=== PATIENT | male | born 1975 | race Caucasian/White ===

== ENCOUNTER 2019-09-27 10:08 | Inpatient (IN) | payer BC, OTHER ==
[2019-09-27] VITALS (7 sets, daily range): BP systolic 144–159; BP diastolic 87–99
[~2019-09-27] VITALS: Ht 185.4 cm; Wt 119.5 kg
[2019-09-27 10:45] LABS: VENOUS BASE EXCESS -5.1 (-2.0-2.0); VENOUS HCO3 21.4 MEQ/L (23.0-27.0); VENOUS O2 SATURATION 58.3 % (60.0-80.0); VENOUS PARTIAL PRESSURE O2 30.4 mmHg (30.0-50.0); VENOUS PH 7.296 UNITS (7.330-7.430); VENOUS STANDARD HCO3 19.3 MEQ/L; VENOUS TOTAL CO2 22.8 MEQ/L (24.0-28.0)
[2019-09-27 10:51] LABS: BASO # 0.1 10^3/uL (0.0-0.2); BASO % 0.3 % (0.0-1.0); EOS % 0.2 % (0.0-3.0); HEMATOCRIT 47.3 % (42.0-52.0); HEMOGLOBIN 16.3 g/dl (13.5-17.5); LYMPH # 1.2 10^3/uL (1.5-5.0); LYMPH % 8.4 % (24.0-44.0); MEAN CORPUSCULAR HEMOGLOBIN 29.4 pg (27.0-33.0); MEAN CORPUSCULAR HGB CONC 34.5 g/dl (32.0-36.5); MEAN CORPUSCULAR VOLUME 85.4 fl (80.0-96.0); MONO # 0.9 10^3/uL (0.0-0.8); NEUTROPHILS # 12.3 10^3/uL (1.5-8.5); NEUTROPHILS % 84.6 % (36.0-66.0); PLATELET COUNT, AUTOMATED 268 10^3/uL (150-450); RED BLOOD COUNT 5.54 10^6/uL (4.30-6.10); WHITE BLOOD COUNT 14.6 10^3/uL (4.0-10.0)
[2019-09-27 11:01] LABS: INR 1.13; PROTHROMBIN TIME 14.2 SECONDS (11.8-14.0)
[2019-09-27 11:06] LABS: PARTIAL THROMBOPLASTIN TIME 30.7 SECONDS (25.0-38.4)
[2019-09-27] MEDS ORDERED: NS 1,000 ML IV ONE (11:15)
[2019-09-27] MEDS ORDERED: VANCOMYCIN HCL 1,000 MG, VIAL MATE ADAPTER 1 EACH in D5W 250 ML IV ONE ×6 (11:15)
[2019-09-27] MEDS ORDERED: PIPERACILLIN/TAZOBACTAM SOD 4.5 GM in D5W MINI-BAG PLUS 50 ML IV ONE (11:15)
[2019-09-27] MEDS ORDERED: VANCOMYCIN HCL 2,000 MG in D5W 500 ML IV ONE (11:15)
[2019-09-27 11:26] LABS: ERYTHROCYTE SEDIMENTATION RATE 44 mm/hr (0-15)
[2019-09-27 11:35] LABS: ALBUMIN 3.3 GM/DL (3.2-5.2); ALT/SGPT 20 U/L (12-78); BILIRUBIN,DIRECT 0.4 MG/DL (0.0-0.2); BLOOD UREA NITROGEN 14 MG/DL (7-18); CALCIUM LEVEL 9.3 MG/DL (8.5-10.1); CARBON DIOXIDE LEVEL 20 MEQ/L (21-32); CHLORIDE LEVEL 96 MEQ/L (98-107); CREATININE FOR GFR 1.23 MG/DL (0.70-1.30); GLOMERULAR FILTRATION RATE > 60.0 (>60); GLUCOSE, FASTING 351 MG/DL (70-100); LIPASE 48 U/L (73-393); POTASSIUM SERUM 4.7 MEQ/L (3.5-5.1); SODIUM LEVEL 128 MEQ/L (136-145); TOTAL PROTEIN 8.8 GM/DL (6.4-8.2)
[2019-09-27 12:04] LABS: HEMOGLOBIN A1c 10.8 %
[2019-09-27] MEDS ORDERED: ISOVUE-370 76% 100ML VIAL As Ordered ONE (12:24)
[2019-09-27] MEDS ORDERED: MORPHINE 2 MG/ML 1ML VIAL (J2270) IV ONE (12:30)
[2019-09-27] MEDS ORDERED: ONDANSETRON 4MG/2ML VIAL IV ONE (12:30)
[2019-09-27] MEDS ORDERED: RA M10TA PO (12:38)
--- NOTE | 2019-09-27 12:45 | REP ---
CHEST, SINGLE VIEW: No comparison. Single view of the chest is performed. There is no acute infiltrate. There appears to be a calcified granuloma in the left lower lung. The heart is normal in size. There is prominent soft tissue in the left hilar region, which may represent adenopathy. There are degenerative changes of the spine. IMPRESSION: No evidence of acute infiltrate. Possible left hilar adenopathy. Recommend CT of the chest. Electronically Signed by Red Gray MD 09/29/2019 11:11 P
[2019-09-27] MEDS ORDERED: GLUCOSE 4GM CHEW TABLET PO PRN (13:30)
[2019-09-27] MEDS ORDERED: GLUCAGON INJ 1MG VIAL SC PRN (13:30)
[2019-09-27] MEDS ORDERED: DEXTROSE 50% 50 ML SYRINGE IV PRN (13:30)
[2019-09-27] MEDS ORDERED: ACETAMINOPHEN TAB 650MG DOSE (2X325MG) PO PRN (13:30)
--- NOTE | 2019-09-27 13:43 | HPEPDOC ---
General Date of Admission 09/27/2019 Date of Service: Sep 27, 2019 Chief Complaint The patient is a 44-year-old male Who presents to the ER with complaints of weakness History of Present Illness Patient is a 44-year-old male who has not seen a physician in over 2 years with a past medical history of diabetes mellitus type 2 and foot ulcers, noncompliant with medications, who presented to the emergency room with weakness and decreased oral intake over the last 3 days. Patient reports that on Monday afternoon had come home and was in bed the entire time since that point. He reports feeling weak with decreased oral intake has not expense any fevers but did report chills while at home reported. His sugars were in the 300s. Has reported increased urinary frequency. Patient denies any chest pain, shortness of breath or palpitations. He did experience nausea and vomiting this morning. Denied any blood in his vomitus. Did report associated epigastric pain that reports has been ongoing for several months. Patient reports that the pain fluctuates between 7-9/10, reported as a burning without any alleviating or aggravating factors. Patient denies any constipation or diarrhea. Denies any urinary discomfort. Patient is unsure of any changes in his weight, but did report a decrease in his appetite over last 3 days. Home Medications Scheduled Melatonin (Melatonin) 10 Mg Tablet, 10 MG PO QHS, (Reported) Allergies Coded Allergies: No Known Allergies (Unverified , 09/27/19) Past Medical History Medical History Srj-zvudglq-zselemwiq diabetes mellitus type 2 Foot ulcers Surgical History No prior surgeries Family History - Patient reports that his mother had a history of arthritis Social History - Denies the use of tobacco; patient reports that he occasionally drinks alco hol. Last use was Monday with 6 beers; patient with that he smokes marijuana - Denies recent travel or sick contacts - Lives with girlfriend - Occupation; currently unemployed Review of Systems Other systems 10 point review of systems complete, all negative otherwise stated in HPI Vital Signs - Vitals: BP 157/72, HR 112, RR 18, Sat 100%RA, Temp 98.3F - General: Lying in bed, No acute distress, Speaking in full sentences, AAOx3 - HEENT: NC, AT, PERRLA - CVS: Tachycardic, +S1S2 - Lungs: Fair air entry bilaterally, No appreciable wheezing / rales / rhonchi - Abdomen: Soft, Non-distended, + Epigastric tenderness - Extremities: No lower extremity edema, No calf tenderness - Neuro: No focal motor or sensory deficit - Skin: ---- Left foot with erythema / warmth / drainage noted at L planter surface around 5th distal metatarsal area, area of drainage between 4/5th digit ---- Right foot with 1st digit with chronic ulcer without drainage / erythema / warmth noted Laboratory Data Labs 24H Laboratory Tests 2 09/27/19 10:32: Immature Granulocyte % (Auto) 0.5, Neutrophils (%) (Auto) 84.6H, Lymphocytes (%) (Auto) 8.4L, Monocytes (%) (Auto) 6.0H, Eosinophils (%) (Auto) 0.2, Basophils (%) (Auto) 0.3, Neutrophils # (Auto) 12.3H, Lymphocytes # (Auto) 1.2L, Monocytes # (Auto) 0.9H, Eosinophils # (Auto) 0.0, Basophils # (Auto) 0.1, Nucleated Red Blood Cells % (auto) 0.0, Erythrocyte Sedimentation Rate 44H, Prothrombin Time 14.2H, Prothromb Time International Ratio 1.13, Activated Partial Thromboplast Time 30.7, Blood Gas Bicarbonate Standard 19.3, Venous Blood pH 7.296L, Venous Blood Partial Pressure CO2 45.0, Venous Blood Partial Pressure O2 30.4, Venous Blood Total Carbon Dioxide 22.8L, Venous Blood HCO3 21.4L, Venous Blood Oxygen Saturation 58.3L, Venous Blood Base Excess -5.1L, Anion Gap 12, Glomerular Filtration Rate > 60.0, Estimated Mean Plasma Glucose 263H, Hemoglobin A1c 10.8, Lactic Acid Level 2.0, Calcium Level 9.3, Total Bilirubin 2.0H, Direct Bilirubin 0.4H, Aspartate Amino Transf (AST/SGOT) 21, Alanine Aminotransferase (ALT/SGPT) 20, Alkaline Phosphatase 124H, C-Reactive Protein, Quantitative 24.70H, Total Protein 8.8H, Albumin 3.3, Albumin/Globulin Ratio 0.6, Lipase 48L 09/27/19 10:40: Bedside Glucose (Misc Panel) 384H CBC/BMP Laboratory Tests 09/27/19 10:32 Microbiology Microbiology 09/27/19 Blood Culture, Received Pending 09/27/19 Blood Culture, Received Pending Plan / VTE VTE Prophylaxis Ordered?: Yes Plan Plan Uncontrolled diabetes mellitus type 2 - likely 2/2 non-compliance with medicai tons - Patient presented to the emergency room with complaints of weakness, decreased oral intake and chills - Patient has not been taking any of his medications. Over last 2 years after he has lost insurance coverage - Glucose levels at home noted to be 300s - A1c currently at 10.8 - Will check fasting lipid profile; start Atorvastatin for now - Will start low dose Levemir for better glycemic coverage; will start ISS while inpatient Diabetic foot ulcers - possibly with osteomyelitis - Currently patient has surrounding erythema, warmth and tenderness around area of drainage - Tachycardia; remains hemodynamically stable; no fevers - Leukocytosis noted / No lactic acidosis / Elevated CRP - XR R foot 09/26: abnormal soft tissue air density L foot cannot r\o osteo either foot - Will start IV fluid hydration - Will cover with broad spectrum antibiotics; Vancomycin and Zosyn - Case discussed with Dr. Simon; will evaluate today; will keep patient NPO for now for possible OR Epigastric pain - Patient reports that this pain has been going on for several months - Physical with epigastric tenderness - EKG noted without any ischemic changes - CXR 09/26: No evidence of acute infiltrate. Possible left hilar adenopathy. Recommend CT of the chest. - CT abdomen / pelvis 09/26: CT Findings Within normal limits - Will get CT chest with IV contrast - Will start Protonix Hypertension - Patient likely has ongoing history of hypertension - Has not seen a provider greater than 2 years - Will start Lisinopril for renal protective effect and BP control Gastrointestinal prophylaxis - Will start Protonix DVT prophylaxis - Will start TEDs/Sequentials MILDRED CHARLTON MD Sep 27, 2019 13:43
--- NOTE | 2019-09-27 13:46 | REP ---
REASON: Soft tissue infection left foot laterally and dorsally. AP and lateral views were obtained bilaterally. Two limited views of the right foot show some endplate irregularity involving the distal phalanx of the 1st digit. There is no acute fracture. There is a retrocalcaneal heel spur. IMPRESSION: Suspect findings distal phalanx 1st digit. Osteomyelitis or acute fracture cannot be ruled out on this two-view exam. Consider MRI. Two views of the left foot show air density in the webspace between the 4th and 5th digits and more proximally in the dorsal soft tissues as well. The mineralization of the mid and distal components of the 5th metacarpal appears decreased. There are plantar and retrocalcaneal heel spurs. Limited two views shows no acute fracture. IMPRESSION: Abnormal air density as described above consistent with the clinical history of infection with a gas producing organism. I cannot rule out acute osteomyelitis. MRI is recommended. There are other findings as described above. Electronically Signed by Yong Retana DO 09/27/2019 03:56 P
--- NOTE | 2019-09-27 13:49 | PHACANCOPD ---
PHARMACY VANCOMYCIN DOSING Pt Demographics Demographics Patient Age:44 , Weight:119.800 , Gender: male Adjusted Body Weight Date: 09/27/19, Adjusted Body Weight: [95.86] Kg Events Past 24 Hours Events Past 24 Hours: NO: Dialysis, Diuretic Therapy, Change in CrCl, Fever, Elevation in WBC, Pending Diagnostics, Pending Procedures, Other Vancomycin Vancomycin indication: MRSA COVERAGE Vancomycin Target Ranges: 15-20 mcg/ml Vancomycin Load Y/N: Yes Load Dose Date Time Vancomycin Load Dose: 2G Date:09/27/19 Time:12:00 Vancomycin Dose Date: 09/27/19. Current Vancomycin Dose: [1G IV Q8H] Intermittent Dosing?: No Labs Labs Item Value Date Time White Blood Count 14.6 10^3/uL H 09/27/19 1032 Neutrophils # (Auto) 12.3 10^3/uL H 09/27/19 1032 Creatinine 1.23 MG/DL 09/27/19 1032 C-Reactive Protein, Quantitative 24.70 MG/DL H 09/27/19 1032 Micro Microbiology 09/27/19 Blood Culture, Received Pending 09/27/19 Blood Culture, Received Pending Creatinine Clearance Date:09/27/19. Creatinine Clearance: [107ML/MIN ADJ]. Pending Labs VANCOMYCIN TROUGH 09/28/19 @11:00 Assessment and Plan Maintaining Current Dose?: Yes Reason for dose change: No Dose Change Pharmacist Note Pharmacist Note Date: 09/27/19. Pharmacist note:Pt is a 44 year old male being treated for MRSA coverage of a diabetic foot infection goal trough 15-20mcg/ml. The patient has not been treated with vancomycin here at [facility] in the past. To achieve goal a 2g l oading dose was started 09/27/19 @12:00. Maintenance therapy will consist of 1g IV every 8 hours. A trough is scheduled for 09/28/19 @ 11:00. We will continue to monitor and adjust the dose as needed. MARGARITO GARCIA PHARMACY Sep 27, 2019 13:49
[2019-09-27] MEDS ORDERED: ATORVASTATIN 20 MG TAB PO ONE (14:00)
[2019-09-27] MEDS ORDERED: PANTOPRAZOLE 40MG TAB (PROTONIX) PO ONE (14:00)
[2019-09-27] MEDS ORDERED: GI COCKTAIL 50ML BTL(HYOSCYAMINE/MAALOX/LIDOCAINE VISCOUS)(1:3:1) PO ONE (14:00)
[2019-09-27] MEDS ORDERED: lisinopriL 5 MG TAB PO ONE (14:00)
--- NOTE | 2019-09-27 14:17 | REP ---
REASON FOR EXAM: Abdominal pain . There are no priors for comparison. CONTRAST: 100 mL of Isovue 370. The lung bases are clear. The liver, gallbladder, spleen, pancreas, adrenals and kidneys are within normal limits. There is mild nonspecific perirenal stranding. The abdominal aorta and para-aortic regions are within normal limits. The bowel loops and their mesenteries are within normal limits. There is no intra-abdominal or intrapelvic mass or adenopathy. No free fluid or free air is seen in the abdomen or pelvis. Bone window technique throughout the examination showed the osseous structures to be within normal limits. IMPRESSION: CT findings are within normal limits. Electronically Signed by Yong Retana DO 09/27/2019 04:01 P
[2019-09-27 14:32] LABS: CHOLESTEROL LEVEL 217 MG/DL (<200); CHOLESTEROL RISK RATIO 5.564 (<5); HDL CHOLESTEROL 39 MG/DL (>40); LDL CHOLESTEROL 149 MG/DL (<100); NON-HDL-C 178 MG/DL; TRIGLYCERIDES LEVEL 143 MG/DL (<150)
[2019-09-27] MEDS: GABAPENTIN 100 MG CAP PO SCH ×2 (15:38→20:22)
[2019-09-27] MEDS: NS 1,000 ML IV SCH ×2 (15:38→23:30)
[2019-09-27] MEDS: oxyCODONE 5MG TAB PO PRN ×2 (15:38→21:49)
[2019-09-27] MEDS ORDERED: propofoL 500 MG/50 ML VIAL As Ordered ONE (16:04)
[2019-09-27] MEDS ORDERED: ONDANSETRON 4MG/2ML VIAL As Ordered ONE (16:04)
[2019-09-27] MEDS ORDERED: MIDAZOLAM INJ 2MG/2ML VIAL (J2250 PER 1MG) As Ordered ONE (16:04)
[2019-09-27] MEDS ORDERED: fentaNYL 100 MCG/2 ML INJECTION (J3010) As Ordered ONE (16:05)
[2019-09-27] MEDS ORDERED: dexameTHASONE 4 MG/ML 1ML VIAL (J1100 PER 1MG) As Ordered ONE (16:18)
[2019-09-27] MEDS ORDERED: LIDOCAINE 2% MDV 20ML VIAL As Ordered ONE (16:18)
[2019-09-27] MEDS ORDERED: BUPIVACAINE HCL 0.5% 30 ML VIAL As Ordered ONE (16:18)
[2019-09-27] MEDS ORDERED: NEOSPORIN GU IRRIG 20 ML VIAL As Ordered ONE (16:19)
[2019-09-27] MEDS ORDERED: BACITRACIN PWD 50,000 UNITS VIAL As Ordered ONE (16:19)
--- NOTE | 2019-09-27 16:23 | IPN ---
DATE: 09/27/2019 CHIEF COMPLAINT: A 44-year-old male seen for evaluation of a swollen left foot. The patient states he has had ulcers on-and-off for the last three years. He states that he usually is able to take of the ulcers himself. However, he has noticed swelling and redness of his left foot for three days. He states that he has had difficulty eating for the last three days as well. He presented to the emergency room and he is seen today for evaluation. HOME MEDICATIONS: Melatonin 10 mg by mouth at bedtime. ALLERGIES: None known. PAST MEDICAL HISTORY: Sig-umdxqrq-peqnrkzff diabetes mellitus, history of foot ulcers. PAST SURGICAL HISTORY: The patient denies any surgery. PHYSICAL EXAMINATION: Reveals an ulceration present on the plantar aspect of his left foot as well as an ulceration present on both his big toes. The ulceration on the left foot reveals a 5 mm x 5 mm ulceration submetatarsal four. This ulceration does display a sinus tract exiting on the dorsal aspect of the foot. The foot dorsally is tense with erythema over the central compartment measuring approximately 8 cm in a proximal direction, quite tender to palpation. There is a purulent discharge noted. The dorsalis pedis pulse is palpable, posterior tibial pulse bilateral is difficult to palpate. There is an ulceration present on the left hallux as well. This ulceration measures approximately 1.5 cm in length x 0.6 cm in width with approximately 1 mm depth. There is a larger ulceration on the right hallux measuring approximately 20 mm x 20 mm x 1 mm in depth. The hallux ulceration display no erythema or discharge. X-rays were reviewed of the foot bilateral revealing air in the subcutaneous tissues over the fourth metatarsal extending into the fourth toe. This does partially obstruct some of the visualization of the fourth metatarsal head. Osteomyelitis could not be ruled out of the fourth metatarsal head. There is some subtle changes noted in the proximal phalanx of the right hallux which excludes osteomyelitis but clinically there is no discharge or extension to bone on the right foot. LABORATORY STUDIES: Reviewed and reveal a white count of 14.6 and an ESR of 44. C-reactive protein of 24.7, GFR greater than 60, fasting glucose is 351. Hemoglobin A1c 10.8. ASSESSMENT: Central space infection dorsal and plantar, possible osteomyelitis fourth metatarsal left foot. PLAN: Discussed with the patient surgical decompression of plantar and central and dorsal space infection, left foot. Discussed possible debridement of osteomyelitic bone if present and packing the wound. Informed consent was obtained and signed by the patient. The patient's questions were answered. Thank you for this consultation.
[2019-09-27 16:27] LABS: INR 1.15; PROTHROMBIN TIME 14.4 SECONDS (11.8-14.0)
[2019-09-27] MEDS ORDERED: GENTAMICIN SULF 80MG/2ML VIAL As Ordered ONE ×2 (16:49→16:52)
[2019-09-27] MEDS ORDERED: LR 1,000 ML IV SCH (17:45)
[2019-09-27] MEDS ORDERED: fentaNYL 100 MCG/2 ML INJECTION (J3010) IV PRN (17:45)
[2019-09-27] MEDS ORDERED: ONDANSETRON 4MG/2ML VIAL IV PRN (17:45)
[2019-09-27] MEDS ORDERED: PERCOCET 5MG/325MG TAB PO PRN (17:45)
[2019-09-27] MEDS: PIPERACILLIN/TAZOBACTAM SOD 3.375 GM in D5W MINI-BAG PLUS 50 ML IV SCH ×3 (18:00→23:53)
[2019-09-27] MEDS: HumaLOG INSULIN (NovoLOG) PER UNIT SC SCH ×2 (19:05→20:22)
[2019-09-27] MEDS: VANCOMYCIN HCL 1,000 MG, VIAL MATE ADAPTER 1 EACH in D5W 250 ML IV SCH (20:16)
[2019-09-27] MEDS: LEVEMIR (INSULIN DETEMIR) 1 UNITS/0.01ML SC SCH (20:17)
--- NOTE | 2019-09-27 21:34 | ECGEPIP ---
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
--- NOTE | 2019-09-27 21:34 | ECGEPIP ---
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
[2019-09-28 03:30] VITALS: BP 138/82
[2019-09-28] MEDS: VANCOMYCIN HCL 1,000 MG, VIAL MATE ADAPTER 1 EACH in D5W 250 ML IV SCH ×3 (04:14→21:14)
[2019-09-28] MEDS: oxyCODONE 5MG TAB PO PRN ×4 (04:15→23:52)
[2019-09-28] MEDS: PIPERACILLIN/TAZOBACTAM SOD 3.375 GM in D5W MINI-BAG PLUS 50 ML IV SCH ×4 (05:59→23:53)
[2019-09-28 06:00] VITALS: BP 138/81
[2019-09-28 06:32] LABS: BASO % 0.4 % (0.0-1.0); EOS # 0.2 10^3/uL (0.0-0.5); EOS % 1.5 % (0.0-3.0); HEMATOCRIT 39.5 % (42.0-52.0); LYMPH % 9.8 % (24.0-44.0); MEAN CORPUSCULAR HEMOGLOBIN 29.4 pg (27.0-33.0); MEAN CORPUSCULAR HGB CONC 34.4 g/dl (32.0-36.5); MEAN CORPUSCULAR VOLUME 85.5 fl (80.0-96.0); MONO # 1.1 10^3/uL (0.0-0.8); MONO % 10.5 % (0.0-5.0); NEUTROPHILS # 8.1 10^3/uL (1.5-8.5); NEUTROPHILS % 77.3 % (36.0-66.0); PLATELET COUNT, AUTOMATED 216 10^3/uL (150-450); RED BLOOD COUNT 4.62 10^6/uL (4.30-6.10); WHITE BLOOD COUNT 10.5 10^3/uL (4.0-10.0)
[2019-09-28 06:54] LABS: HEMOGLOBIN 13.6 g/dl (13.5-17.5)
[2019-09-28 07:03] LABS: BLOOD UREA NITROGEN 10 MG/DL (7-18); CALCIUM LEVEL 8.6 MG/DL (8.5-10.1); CARBON DIOXIDE LEVEL 24 MEQ/L (21-32); CHLORIDE LEVEL 101 MEQ/L (98-107); GLOMERULAR FILTRATION RATE > 60.0 (>60); GLUCOSE, FASTING 325 MG/DL (70-100); MAGNESIUM LEVEL 2.1 MG/DL (1.8-2.4); POTASSIUM SERUM 4.1 MEQ/L (3.5-5.1); SODIUM LEVEL 135 MEQ/L (136-145)
[2019-09-28] MEDS: GABAPENTIN 100 MG CAP PO SCH ×3 (08:17→21:14)
[2019-09-28] MEDS: HumaLOG INSULIN (NovoLOG) PER UNIT SC SCH ×4 (08:17→21:15)
[2019-09-28] MEDS: LEVEMIR (INSULIN DETEMIR) 1 UNITS/0.01ML SC SCH ×2 (08:17→21:14)
[2019-09-28] MEDS: PANTOPRAZOLE 40MG TAB (PROTONIX) PO SCH (08:18)
[2019-09-28] MEDS: ATORVASTATIN 20 MG TAB PO SCH (08:18)
[2019-09-28] MEDS: lisinopriL 5 MG TAB PO SCH (08:20)
[2019-09-28] MEDS: NS 1,000 ML IV SCH ×2 (10:03→23:52)
--- NOTE | 2019-09-28 11:55 | PHACANCOPD ---
PHARMACY VANCOMYCIN DOSING Pt Demographics Demographics Patient Age:44 , Weight:119.500 , Gender: male Adjusted Body Weight Date: 09/27/19, Adjusted Body Weight: [95.86] Kg Events Past 24 Hours Events Past 24 Hours: NO: Dialysis, Diuretic Therapy, Change in CrCl, Fever, Elevation in WBC, Pending Diagnostics, Pending Procedures, Other Vancomycin Vancomycin indication: MRSA COVERAGE Vancomycin Target Ranges: 15-20 mcg/ml Vancomycin Load Y/N: Yes Load Dose Date Time Vancomycin Load Dose: 2G Date:09/27/19 Time:12:00 Vancomycin Dose Date: 09/28/19. Current Vancomycin Dose: [1G IV Q6H] Date: 09/27/19. Current Vancomycin Dose: [1G IV Q8H] Intermittent Dosing?: No Labs Labs Item Value Date Time White Blood Count 14.6 10^3/uL H 09/27/19 1032 White Blood Count 10.5 10^3/uL H 09/28/19 0607 Creatinine 1.23 MG/DL 09/27/19 1032 Creatinine 0.80 MG/DL 09/28/19 0607 Vancomycin Level Trough 7.2 UG/ML L 09/28/19 1100 Micro Microbiology 09/27/19 Gram Stain - Final, Resulted 09/27/19 Abscess Culture, Resulted Pending 09/27/19 Anaerobic Culture, Received Pending 09/27/19 Blood Culture - Preliminary, Resulted No growth after 24 hours . All specim... 09/27/19 Blood Culture, Received Pending Creatinine Clearance Date:09/27/19. Creatinine Clearance: [107ML/MIN ADJ]. Pending Labs VANCOMYCIN TROUGH 09/29/19 @11:00 Assessment and Plan Maintaining Current Dose?: No Reason for dose change: Trough too low Pharmacist Note Pharmacist Note Date: 09/28/19. Pharmacist note:Scr has improved to 0.8mg/dl and the patients trough came back at 7.2mcg/ml prior to the 4th dose. We will change the dosing to 1g vancomycin IV every 6 hours. Another trough is scheduled for 09/29/19 @ 11:00. We will continue to monitor and adjust the dose as needed. Date: 09/27/19. Pharmacist note:Pt is a 44 year old male being treated for MRSA coverage of a diabetic foot infection goal trough 15-20mcg/ml. The patient has not been treated with vancomycin here at [facility] in the past. To achieve goal a 2g loading dose was started 09/27/19 @12:00. Maintenance therapy will consist of 1g IV every 8 hours. A trough is scheduled for 09/28/19 @ 11:00. We will continue to monitor and adjust the dose as needed. MARGARITO GARCIA PHARMACY Sep 28, 2019 11:55
[2019-09-28] MEDS ORDERED: VANCOMYCIN HCL 1,000 MG, VIAL MATE ADAPTER 1 EACH in D5W 250 ML IV SCH (12:00)
[2019-09-28] MEDS ORDERED: ISOVUE-370 76% 100ML VIAL As Ordered ONE (12:20)
[2019-09-28 14:00] VITALS: BP 134/79
--- NOTE | 2019-09-28 14:07 | IPNPDOC ---
Text Note Date of Service The patient was seen on 09/28/19. NOTE SUBJECTIVE Mr. Mg has a history of poorly controlled trg-ifqbjti-cwamecbhz diabetes mellitus. He has been admitted with a significant ulcer to his left foot. He is now postop day #1 from incision and drainage. He notes some swelling to his toes, little or no pain and chronic numbness. OBJECTIVE Please see vital signs below Physical exam: HENT: Neck is supple with no adenopathy or thyromegaly, oral mucosa is moist. CV: Regular rate and rhythm with a normal S1 and S2 and no murmur. RESP: Clear to auscultation, no rhonchi, rales, wheezes or cough. ABD: Soft, nontender, nondistended, notable central obesity. EXT: Right great toe is in a compression dressing with some visible staining to bandage, left foot is encased in compression dressing, toes are warm to touch with good capillary refill. NEURO: No focal neuromotor or sensory deficits. Laboratory data of interest: Serum sodium has improved from 128-135. Creatinine is decreased from 1.23, down to 0.8. C-reactive protein is 20.5. White blood cell count is reduced 14.6, down to 10.5. Serum glucose this morning is 325, note is made of A1c of 10.8. Initial culture results from the left foot wound site reveals gram-positive cocci in pairs and chains. ASSESSMENT/PLAN: 1. Left foot ulcer--actually felt to be an abscess. There is underlying concern for osteomyelitis. Patient has undergone incision and drainage. Culture results are pending and biopsies were obtained to assess for osteomyelitis. In the int erim patient remains on Vanco and Zosyn. Appreciate input and assistance from the podiatry service. 2. Vuv-dmfylqd-zghpgnkxo diabetes mellitus--poorly controlled with hyperglycemia. Has elevated A1c. Will continue to adjust inpatient glucose control regimen; will need compliance with home regimen to avoid further end- organ damage. 3. Prerenal azotemia--resolved with IV hydration. Serum sodium is also improved. VS,Fishbone, I+O VS, Fishbone, I+O Laboratory Tests 09/28/19 06:07 Vital Signs Date Time Temp Pulse Resp B/P (MAP) Pulse Ox O2 Delivery O2 Flow Rate FiO2 09/28/19 11:03 18 09/28/19 08:20 136/80 09/28/19 06:00 98.1 92 97 Room Air I&O- Last 24 Hours up to 6 AM 09/28/19 06:00 Intake Total 3730 ml Output Total 700 ml Balance 3030 ml OLIVER TORREZ MD Sep 28, 2019 14:07
[2019-09-28] MEDS: ONDANSETRON 4MG/2ML VIAL IV PRN (14:14)
[2019-09-28] MEDS: RAMELTEON 8 MG TAB (ROZEREM) PO PRN (21:14)
[2019-09-28 22:00] VITALS: BP 134/80
[2019-09-29] MEDS: VANCOMYCIN HCL 1,000 MG, VIAL MATE ADAPTER 1 EACH in D5W 250 ML IV SCH ×4 (02:42→21:21)
[2019-09-29] MEDS: PIPERACILLIN/TAZOBACTAM SOD 3.375 GM in D5W MINI-BAG PLUS 50 ML IV SCH ×2 (05:52→11:59)
[2019-09-29 06:00] VITALS: BP 132/78
[2019-09-29 06:31] LABS: BASO # 0.1 10^3/uL (0.0-0.2); BASO % 0.7 % (0.0-1.0); EOS # 0.3 10^3/uL (0.0-0.5); EOS % 3.6 % (0.0-3.0); HEMATOCRIT 37.3 % (42.0-52.0); HEMOGLOBIN 12.8 g/dl (13.5-17.5); LYMPH # 1.2 10^3/uL (1.5-5.0); LYMPH % 17.2 % (24.0-44.0); MEAN CORPUSCULAR HGB CONC 34.3 g/dl (32.0-36.5); MEAN CORPUSCULAR VOLUME 84.6 fl (80.0-96.0); MONO # 0.8 10^3/uL (0.0-0.8); NEUTROPHILS # 4.7 10^3/uL (1.5-8.5); NEUTROPHILS % 67.2 % (36.0-66.0); PLATELET COUNT, AUTOMATED 206 10^3/uL (150-450); RED BLOOD COUNT 4.41 10^6/uL (4.30-6.10); WHITE BLOOD COUNT 6.9 10^3/uL (4.0-10.0)
[2019-09-29 06:57] LABS: BLOOD UREA NITROGEN 9 MG/DL (7-18); CALCIUM LEVEL 8.3 MG/DL (8.5-10.1); CARBON DIOXIDE LEVEL 27 MEQ/L (21-32); CHLORIDE LEVEL 100 MEQ/L (98-107); CREATININE FOR GFR 0.78 MG/DL (0.70-1.30); GLOMERULAR FILTRATION RATE > 60.0 (>60); GLUCOSE, FASTING 347 MG/DL (70-100); MAGNESIUM LEVEL 1.9 MG/DL (1.8-2.4); POTASSIUM SERUM 3.7 MEQ/L (3.5-5.1); SODIUM LEVEL 132 MEQ/L (136-145)
[2019-09-29] MEDS: LEVEMIR (INSULIN DETEMIR) 1 UNITS/0.01ML SC SCH ×2 (08:14→21:21)
[2019-09-29] MEDS: HumaLOG INSULIN (NovoLOG) PER UNIT SC SCH ×4 (08:14→20:46)
[2019-09-29] MEDS: oxyCODONE 5MG TAB PO PRN ×3 (08:15→21:23)
[2019-09-29] MEDS: PANTOPRAZOLE 40MG TAB (PROTONIX) PO SCH (08:15)
[2019-09-29] MEDS: GABAPENTIN 100 MG CAP PO SCH ×3 (08:15→21:22)
[2019-09-29] MEDS: ATORVASTATIN 20 MG TAB PO SCH (08:16)
[2019-09-29] MEDS: lisinopriL 5 MG TAB PO SCH (08:17)
[2019-09-29] MEDS: NS 1,000 ML IV SCH ×2 (08:53→15:19)
--- NOTE | 2019-09-29 12:37 | REP ---
CT CHEST WITH CONTRAST: 09/28/2019. CLINICAL HISTORY: Lymphadenopathy suggested about left hilum on chest x-ray. COMPARISON: Lung windows from CT abdomen and AP portable chest, 09/27/2019. TECHNIQUE: Bolus of 75 mL Isovue 370, scanning through the chest with coronal and sagittal reconstructions provided. FINDINGS: The lung oliver are well inflated. There is a calcified granuloma in the left lower lobe posterior basal segment about 10 mm. No infiltrate, pleural effusion, pleural-based mass, or other calcified nodules. There is no hiatal hernia. The heart is not enlarged. No pericardial thickening or effusion. There is a very large conglomerate calcified gen mass at the left hilum 3.8 x 2.7 x 3.3 cm. This corresponds to the chest x-ray finding. There is a smaller calcified node posteriorly in the hilum on the left at about 12 mm. No prevascular space, AP window, precarinal, right paratracheal, subcarinal or right hilar calcified nodes. Aorta is without aneurysm. Central pulmonary arteries are unremarkable. The bone windows show sternum, manubrium, clavicular heads, visualized scapula, and ribs without any abnormality. There are marginal osteophytes in lower thoracic spine without compression deformity. The upper abdomen is unchanged from yesterday's abdominal CT. IMPRESSION: 1. Large conglomerate calcified left hilar node corresponding to the CT finding. This is a benign old granulomas finding along with a smaller 12 mm node in that hilum and a 10 mm granuloma in the left lower lobe. There are no other significant findings. Electronically Signed by Getachew Esteban MD 09/29/2019 06:55 P
[2019-09-29 14:00] VITALS: BP 123/79
[2019-09-29] MEDS: SILVER SULFADIAZINE 1% CR 50 GM JAR TOP SCH ×2 (17:34→21:22)
--- NOTE | 2019-09-29 18:43 | PHACANCOPD ---
PHARMACY VANCOMYCIN DOSING Pt Demographics Demographics Patient Age:44 , Weight:119.500 , Gender: male Adjusted Body Weight Date: 09/27/19, Adjusted Body Weight: [95.86] Kg Events Past 24 Hours Events Past 24 Hours: NO: Dialysis, Diuretic Therapy, Change in CrCl, Fever, Elevation in WBC, Pending Diagnostics, Pending Procedures, Other Vancomycin Vancomycin indication: MRSA COVERAGE Vancomycin Target Ranges: 15-20 mcg/ml Vancomycin Load Y/N: Yes Load Dose Date Time Vancomycin Load Dose: 2G Date:09/27/19 Time:12:00 Vancomycin Dose Date: 09/29/19. Current Vancomycin Dose: [1.5G IV Q6H] Date: 09/28/19. Current Vancomycin Dose: [1G IV Q6H] Date: 09/27/19. Current Vancomycin Dose: [1G IV Q8H] Intermittent Dosing?: No Labs Labs Item Value Date Time Red Blood Count 5.54 10^6/uL 09/27/19 1032 White Blood Count 14.6 10^3/uL H 09/27/19 1032 White Blood Count 10.5 10^3/uL H 09/28/19 0607 White Blood Count 6.9 10^3/uL 09/29/19 0621 Neutrophils # (Auto) 8.1 10^3/uL 09/28/19 0607 Neutrophils # (Auto) 4.7 10^3/uL 09/29/19 0621 Creatinine 0.80 MG/DL 09/28/19 0607 Creatinine 0.78 MG/DL 09/29/19 0621 Vancomycin Level Trough 7.2 UG/ML L 09/28/19 1100 Vancomycin Level Trough 10.3 UG/ML 09/29/19 1359 Micro Microbiology 09/27/19 Gram Stain - Final, Resulted 09/27/19 Abscess Culture - Preliminary, Resulted Strep Agalactiae Group B Staphylococcus Aureus 09/27/19 Anaerobic Culture, Received Pending 09/27/19 Blood Culture - Preliminary, Resulted No Growth after 48 hours. All Specime... 09/27/19 Blood Culture - Preliminary, Resulted No Growth after 48 hours. All Specime... Creatinine Clearance Date:09/27/19. Creatinine Clearance: [107ML/MIN ADJ]. Pending Labs VANCOMYCIN TROUGH 09/30/19 @14:00 Assessment and Plan Maintaining Current Dose?: No Reason for dose change: Trough too low Pharmacist Note Pharmacist Note Date: 09/29/19. Pharmacist note:pt trough came back today @13:59 @ 10.3mcg/ml. Dosing will increase to 1.5g vancomycin IV every 6 hours. A trough is scheduled for 09/30/19 @14:00. We will continue to monitor and adjust the dose as needed. Date: 09/28/19. Pharmacist note:Scr has improved to 0.8mg/dl and the patients trough came back at 7.2mcg/ml prior to the 4th dose. We will change the dosing to 1g vancomycin IV every 6 hours. Another trough is scheduled for 09/29/19 @ 11:00. We will continue to monitor and adjust the dose as needed. Date: 09/27/19. Pharmacist note:Pt is a 44 year old male being treated for MRSA coverage of a diabetic foot infection goal trough 15-20mcg/ml. The patient has not been treated with vancomycin here at [facility] in the past. To achieve goal a 2g loading dose was started 09/27/19 @12:00. Maintenance therapy will consist of 1g IV every 8 hours. A trough is scheduled for 09/28/19 @ 11:00. We will continue to monitor and adjust the dose as needed. MARGARITO GARCIA PHARMACY Sep 29, 2019 18:42
--- NOTE | 2019-09-29 18:45 | IPNPDOC ---
Text Note Date of Service The patient was seen on 09/29/19. NOTE SUBJECTIVE Mr. Mg is postop day #2 from incision and drainage to the dorsum of his left foot for diabetic ulcer/abscess. He is complaining of some increased pain to his left lower extremity. He has also had some persistent hyperglycemia. OBJECTIVE Please see vital signs below; patient has been afebrile overnight. Physical exam: GENERAL: Patient is awake, alert and conversant; asking multiple questions regarding parking stickers, disability and appropriate diabetes diet HENT: Neck is supple with no adenopathy or thyromegaly, oral mucosa is moist. CV: Regular rate and rhythm with a normal S1 and S2 and no murmur. RESP: Clear to auscultation, no rhonchi, rales, wheezes or cough. ABD: Soft, nontender, nondistended, notable central obesity. EXT: Right great toe is in a compression dressing with some visible staining to bandage, left foot is encased in compression dressing, toes are warm to touch with good capillary refill, there is mild calf tenderness but no swelling or edema or discoloration NEURO: No focal neuromotor or sensory deficits. Laboratory data of interest: CBC has decreased from 10.5-6.9. Creatinine is stable at 0.78. Serum glucose remains elevated at 347. C-reactive protein has decreased from 20.5-14.8. Wound culture data is as discussed below. ASSESSMENT/PLAN: 1. Left foot ulcer--actually felt to be an abscess. There is underlying concern for osteomyelitis. Patient has undergone incision and drainage. Wound culture is positive for group B strep agalactiae and staph aureus--staph sensitivities are not yet completed. Blood cultures are negative to date. Bone biopsies were obtained to assess for osteomyelitis. In the interim patient remains on Vanco and Zosyn. Appreciate input and assistance from the podiatry service. Length of stay cannot yet be estimated. 2. Cdc-vfvojez-uunzbeijy diabetes mellitus--poorly controlled with hype rglycemia. Has elevated A1c of 10.8. Have readjusted his detemir dosing based on weight. Will get dietary consult for diabetes diet education for the patient. Will need compliance with home regimen to avoid further end-organ damage. 3. Prerenal azotemia--resolved with IV hydration. 4. DVT prophylaxis--subcutaneous heparin VS,Fishbone, I+O VS, Fishbone, I+O Laboratory Tests 09/29/19 06:21 Vital Signs Date Time Temp Pulse Resp B/P (MAP) Pulse Ox O2 Delivery O2 Flow Rate FiO2 09/29/19 15:14 18 09/29/19 14:00 98.7 95 123/79 (94) 99 Room Air I&O- Last 24 Hours up to 6 AM 09/29/19 06:00 Intake Total 2770 ml Output Total 600 ml Balance 2170 ml OLIVER TORREZ MD Sep 29, 2019 17:01
[2019-09-29] MEDS ORDERED: VANCOMYCIN HCL 500 MG in D5W MINI-BAG PLUS 100 ML IV ONE (19:00)
--- NOTE | 2019-09-29 20:30 | REPVR ---
PROCEDURE INFORMATION: Exam: US Duplex Left Lower Extremity Veins, Limited Exam date and time: 09/29/2019 8:00 PM Age: 44 years old Clinical indication: Pain; Leg, lower; Left; Prior surgery; Surgery date: Post-operative (0-2 days); Surgery type: Foot surgery for ulcer/infection; Additional info: Calf pain S/P foot surgery TECHNIQUE: Imaging protocol: Real-time Duplex ultrasound of the Left Lower Extremity with 2-D nolan scale, color Doppler flow and spectral waveform analysis with image documentation. Limited exam focused on the left lower extremity veins. COMPARISON: No relevant prior studies available. FINDINGS: Left deep veins: Unremarkable. The common femoral, femoral and popliteal veins are patent without thrombus. Normal compressibility, augmentation response and Doppler waveforms. Left superficial veins: Unremarkable. Saphenofemoral junction is patent without thrombus. Soft tissues: Unremarkable. Lymph nodes: 3.5 x 3.5 x 1.8 cm left inguinal lymph node. IMPRESSION: 1. No sonographic evidence of deep venous thrombosis. 2. Enlarged left inguinal lymph node, nonspecific in appearance, possibly reactive. Electronically signed by: Chet Castro On 09/29/2019 20:30:01 PM
[2019-09-29] MEDS: SENOKOT S TAB PO SCH (21:00)
[2019-09-29] MEDS: HEPARIN SOD (PORCINE) 5000UNITS/ML 1ML VIAL/SYRINGE SQ SCH (21:20)
[2019-09-29 22:00] VITALS: BP 127/79
[2019-09-29] MEDS: VANCOMYCIN HCL 500 MG in D5W MINI-BAG PLUS 100 ML IV SCH (22:52)
[2019-09-29] MEDS: RAMELTEON 8 MG TAB (ROZEREM) PO PRN (22:52)
[2019-09-30] MEDS: VANCOMYCIN HCL 1,000 MG, VIAL MATE ADAPTER 1 EACH in D5W 250 ML IV SCH ×2 (03:05→07:55)
[2019-09-30] MEDS: oxyCODONE 5MG TAB PO PRN ×3 (03:34→20:33)
[2019-09-30] MEDS: VANCOMYCIN HCL 500 MG in D5W MINI-BAG PLUS 100 ML IV SCH ×2 (04:31→10:13)
[2019-09-30 06:00] VITALS: BP 125/79
[2019-09-30 06:34] LABS: BASO # 0.1 10^3/uL (0.0-0.2); BASO % 0.9 % (0.0-1.0); EOS # 0.2 10^3/uL (0.0-0.5); EOS % 3.9 % (0.0-3.0); HEMATOCRIT 36.9 % (42.0-52.0); HEMOGLOBIN 12.6 g/dl (13.5-17.5); LYMPH # 1.5 10^3/uL (1.5-5.0); LYMPH % 26.8 % (24.0-44.0); MEAN CORPUSCULAR HEMOGLOBIN 28.9 pg (27.0-33.0); MEAN CORPUSCULAR HGB CONC 34.1 g/dl (32.0-36.5); MEAN CORPUSCULAR VOLUME 84.6 fl (80.0-96.0); MONO # 0.6 10^3/uL (0.0-0.8); MONO % 11.2 % (0.0-5.0); NEUTROPHILS # 3.2 10^3/uL (1.5-8.5); NEUTROPHILS % 56.7 % (36.0-66.0); PLATELET COUNT, AUTOMATED 215 10^3/uL (150-450); RED BLOOD COUNT 4.36 10^6/uL (4.30-6.10); WHITE BLOOD COUNT 5.7 10^3/uL (4.0-10.0)
[2019-09-30 07:06] LABS: BLOOD UREA NITROGEN 8 MG/DL (7-18); C REACTIVE PROTEIN QUANTITATIV 9.92 MG/DL (0.00-0.30); CALCIUM LEVEL 8.3 MG/DL (8.5-10.1); CARBON DIOXIDE LEVEL 29 MEQ/L (21-32); CHLORIDE LEVEL 99 MEQ/L (98-107); CREATININE FOR GFR 0.75 MG/DL (0.70-1.30); GLOMERULAR FILTRATION RATE > 60.0 (>60); GLUCOSE, FASTING 346 MG/DL (70-100); POTASSIUM SERUM 3.7 MEQ/L (3.5-5.1); SODIUM LEVEL 134 MEQ/L (136-145)
[2019-09-30] MEDS: HumaLOG INSULIN (NovoLOG) PER UNIT SC SCH ×4 (07:54→21:00)
[2019-09-30] MEDS: LEVEMIR (INSULIN DETEMIR) 1 UNITS/0.01ML SC SCH ×2 (07:55→22:22)
[2019-09-30] MEDS: ATORVASTATIN 20 MG TAB PO SCH (07:55)
[2019-09-30] MEDS: GABAPENTIN 100 MG CAP PO SCH ×3 (07:56→20:31)
[2019-09-30] MEDS: PANTOPRAZOLE 40MG TAB (PROTONIX) PO SCH (07:56)
[2019-09-30] MEDS: lisinopriL 5 MG TAB PO SCH (07:59)
[2019-09-30] MEDS: HEPARIN SOD (PORCINE) 5000UNITS/ML 1ML VIAL/SYRINGE SQ SCH ×2 (07:59→20:30)
--- NOTE | 2019-09-30 08:16 | IPN ---
DATE: 09/29/2019 at 4:15 p.m. CHIEF COMPLAINT: Patient seen at the bedside for evaluation of left foot surgery. The patient states that he has recently started to have calf tenderness and pain that extends from his foot to his leg. He denies shortness of breath, or chest pain. Physical examination reveals tenderness to compression of the calf. There is no palpable cords. Swelling is noted at the foot and lower leg. No tenderness on the right extremity. Laboratory studies reviewed: White blood cell count on admission was 14.6. It is reduced today to 6.9. ESR was 44 on admission. C-reactive protein on admission was 24.7; today is 14.8. Preliminary culture. The anaerobic culture is pending, however aerobic culture reveals Streptococcus group B and Staphylococcus aureus. Patent is presently on Vancomycin and Zosyn. The bandage was removed and the left lower and the packing was removed. Surrounding erythema still continues dorsally on the foot. However, with compression of the wound, there is no purulence. Good granulation tissue is noted dorsally and plantarly in the wound bed. ASSESSMENT: Central space infection, left foot. Possible deep venous thrombosis (DVT) left extremity. PLAN: Venous duplex scan was ordered of the left extremity. Since the patient's culture is Gram positive organisms, hold Zosyn and continue on vancomycin. Wound orders changed to clean wound with Vashe. Apply Drawtex to the wound with a dry sterile dressing every 8 hours. Patient can have Silvadene and dressing applied to the ulcers on his big toe bilaterally. These are not infected. Patient's duplex scan, if positive, will have hospitalist order his anticoagulant therapy. Patients questions were answered.
[2019-09-30] MEDS: MIRALAX *UNIT DOSE* 17GM PACKET PO SCH (09:00)
[2019-09-30] MEDS: SILVER SULFADIAZINE 1% CR 50 GM JAR TOP SCH ×3 (09:00→20:31)
[2019-09-30] MEDS: NS 1,000 ML IV SCH ×2 (10:47→12:05)
[2019-09-30] MEDS: ceFAZolin SOD 2 GM in IV 1 EA IV SCH ×2 (12:59→20:31)
[2019-09-30 14:00] VITALS: BP 140/84
[2019-09-30] MEDS ORDERED: oxyCODONE 5MG TAB PO ONE (15:30)
--- NOTE | 2019-09-30 18:05 | IPNPDOC ---
Text Note Date of Service The patient was seen on 09/30/19. NOTE SUBJECTIVE Mr. Mg is postop day #3 from incision and drainage to the dorsum of his left foot for diabetic ulcer/abscess. He is seen just after podiatry visit with dressing change. OBJECTIVE Please see vital signs below; patient has been afebrile overnight. Physical exam: GENERAL: Patient is awake, alert and conversant, comfortable HENT: Neck is supple with no adenopathy or thyromegaly, oral mucosa is moist. CV: Regular rate and rhythm with a normal S1 and S2 and no murmur. RESP: Clear to auscultation, no rhonchi, rales, wheezes or cough. ABD: Soft, nontender, nondistended, notable central obesity. EXT: Right great toe is in a compression dressing with some visible staining to bandage, left foot is encased in decreased compression dressing, toes are warm to touch with good capillary refill, there is mild calf tenderness but no swelling or edema or discoloration NEURO: No focal neuromotor or sensory deficits. Laboratory data of interest: White blood cell count is relatively stable at 5.7. Metabolic panel is within normal limits. C-reactive protein has now come down to 9.92. Lower extremity Doppler negative for DVT. Wound culture data is as discussed below. ASSESSMENT/PLAN: 1. Left foot ulcer--actually felt to be an abscess. There is underlying concern for osteomyelitis. Patient has undergone incision and drainage. Wound culture is positive for group B strep agalactiae and staph aureus--this is MSSA. Blood cultures are negative to date. Bone biopsies were obtained to assess for osteomyelitis. Patient remains on Zosyn and now Ancef. Appreciate input and assistance from the podiatry service. Ongoing wound care will be a challenge in this patient. 2. Rvc-spshpvq-syybxqhid diabetes mellitus--poorly controlled with hyperg lycemia. Has elevated A1c of 10.8. Continue to readjust his detemir dosing based on weight and response; Accu-Cheks ranging 303 down to 152. Will get dietary consult for diabetes diet education for the patient. Will need compliance with home regimen to avoid further end-organ damage. 3. Prerenal azotemia--resolved with IV hydration. 4. DVT prophylaxis--subcutaneous heparin VS,Fishbone, I+O VS, Fishbone, I+O Laboratory Tests 7/13/20 06:08 Vital Signs Date Time Temp Pulse Resp B/P (MAP) Pulse Ox O2 Delivery O2 Flow Rate FiO2 09/30/19 15:59 16 09/30/19 14:00 97.1 91 140/84 (102) 97 Room Air I&O- Last 24 Hours up to 6 AM 09/30/19 06:00 Intake Total 5220 ml Balance 5220 ml OLIVER TORREZ MD Sep 30, 2019 18:05
[2019-09-30] MEDS: SENOKOT S TAB PO SCH (20:33)
[2019-09-30 22:00] VITALS: BP 156/88
[2019-09-30] MEDS: RAMELTEON 8 MG TAB (ROZEREM) PO PRN (22:21)
[2019-10-01] MEDS: ceFAZolin SOD 2 GM in IV 1 EA IV SCH (04:00)
[2019-10-01] MEDS: oxyCODONE 5MG TAB PO PRN ×2 (04:02→10:10)
[2019-10-01] MEDS: ONDANSETRON 4MG/2ML VIAL IV PRN (05:06)
[2019-10-01 06:00] VITALS: BP 146/86
[2019-10-01 06:43] LABS: BASO % 0.8 % (0.0-1.0); EOS # 0.2 10^3/uL (0.0-0.5); EOS % 3.6 % (0.0-3.0); HEMATOCRIT 38.3 % (42.0-52.0); HEMOGLOBIN 13.2 g/dl (13.5-17.5); LYMPH # 1.1 10^3/uL (1.5-5.0); LYMPH % 19.9 % (24.0-44.0); MEAN CORPUSCULAR HEMOGLOBIN 29.3 pg (27.0-33.0); MEAN CORPUSCULAR HGB CONC 34.5 g/dl (32.0-36.5); MEAN CORPUSCULAR VOLUME 84.9 fl (80.0-96.0); MONO # 0.7 10^3/uL (0.0-0.8); MONO % 12.2 % (0.0-5.0); NEUTROPHILS # 3.4 10^3/uL (1.5-8.5); NEUTROPHILS % 62.9 % (36.0-66.0); PLATELET COUNT, AUTOMATED 230 10^3/uL (150-450); RED BLOOD COUNT 4.51 10^6/uL (4.30-6.10); WHITE BLOOD COUNT 5.3 10^3/uL (4.0-10.0)
[2019-10-01 07:10] LABS: BLOOD UREA NITROGEN 8 MG/DL (7-18); CALCIUM LEVEL 8.6 MG/DL (8.5-10.1); CARBON DIOXIDE LEVEL 31 MEQ/L (21-32); CHLORIDE LEVEL 99 MEQ/L (98-107); CREATININE FOR GFR 0.84 MG/DL (0.70-1.30); GLOMERULAR FILTRATION RATE > 60.0 (>60); GLUCOSE, FASTING 318 MG/DL (70-100); MAGNESIUM LEVEL 1.9 MG/DL (1.8-2.4); POTASSIUM SERUM 3.9 MEQ/L (3.5-5.1); SODIUM LEVEL 136 MEQ/L (136-145)
[2019-10-01] MEDS: HumaLOG INSULIN (NovoLOG) PER UNIT SC SCH ×4 (08:33→21:00)
[2019-10-01] MEDS: GABAPENTIN 100 MG CAP PO SCH ×3 (08:34→21:26)
[2019-10-01] MEDS: HEPARIN SOD (PORCINE) 5000UNITS/ML 1ML VIAL/SYRINGE SQ SCH ×2 (08:34→21:26)
[2019-10-01] MEDS: PANTOPRAZOLE 40MG TAB (PROTONIX) PO SCH (08:36)
[2019-10-01] MEDS: lisinopriL 5 MG TAB PO SCH (08:36)
[2019-10-01] MEDS: MIRALAX *UNIT DOSE* 17GM PACKET PO SCH (08:36)
[2019-10-01] MEDS: SILVER SULFADIAZINE 1% CR 50 GM JAR TOP SCH ×3 (08:37→21:28)
[2019-10-01] MEDS: ATORVASTATIN 20 MG TAB PO SCH (08:37)
[2019-10-01] MEDS ORDERED: VANCOMYCIN HCL 500 MG in D5W MINI-BAG PLUS 100 ML IV SCH (08:45)
[2019-10-01] MEDS ORDERED: LEVEMIR (INSULIN DETEMIR) 1 UNITS/0.01ML SC SCH ×2 (09:00→21:00)
--- NOTE | 2019-10-01 09:17 | ECHO ---
DATE OF PROCEDURE: 09/30/2019 REFERRING PHYSICIAN: Dr. Veronica Burroughs INDICATION: Sepsis. HEIGHT: 185 cm WEIGHT: 120 kg DIMENSIONS: IVS: 11.3 LV: 4.5 LVPW: 1.2 LA: 4.0 Aorta: 3.7 IVC: 2.3 Mitral E wave velocity: 86 A wave: 71 E prime septal: 9.9 E prime lateral: 12.7 FINDINGS: The study is of good technical quality. The patient is in sinus rhythm. Normal left ventricle (LV) size and systolic function with estimated ejection fraction (EF) around 55-60%. Mild left ventricular hypertrophy is noted. Right ventricle is also normal size and systolic function. Both atria appear grossly normal. All four cardiac valves were reasonably well seen and appear normal. No pericardial effusion is noted. Inferior vena cava is dilated, but collapses with respiration indicative of mildly elevated central venous pressure (CVP). Aortic root and aortic arch appear normal. Doppler interrogation reveals competent all four cardiac valves. There is no stenosis or insufficiency. Mitral inflow pattern and tissue Doppler imaging of the mitral annulus reveal normal diastolic function. CONCLUSIONS: 1. Study is of good technical quality. The patient is in sinus rhythm. 2. Normal LV size with mild left ventricular hypertrophy (LVH) and preserved LV systolic and diastolic function. 3. No valvular disease. 4. Likely at least mildly elevated central venous pressure. 5. Unable to estimate pulmonary artery pressure. COMMENT: Subacute bacterial endocarditis (SBE) prophylaxis is not recommended.
[2019-10-01] MEDS ORDERED: ceFAZolin SOD 2 GM in IV 1 EA IV SCH (12:00)
[2019-10-01 14:00] VITALS: BP 122/77
[2019-10-01] MEDS: METOCLOPRAMIDE 5 MG TAB PO SCH ×2 (14:25→21:26)
--- NOTE | 2019-10-01 18:04 | IPNPDOC ---
Date Seen The patient was seen on 10/01/19. Progress Note SUBJECTIVE Patient is currently post-op day #4 from I&D to the dorsum of diabetic ulcer/abscess of left foot. Wound/abscess Cx growing strep and staph species, sensitive to Cefazolin. WBC wnl, afebrile. Patient denies fevers, chills, n/v/d. OBJECTIVE: VITAL SIGNS: Please see below PHYSICAL EXAMINATION: GENERAL: Patient is awake, alert and conversant, comfortable HENT: Neck is supple with no adenopathy or thyromegaly, oral mucosa is moist. CV: Regular rate and rhythm with a normal S1 and S2 and no murmur. RESP: Clear to auscultation, no rhonchi, rales, wheezes or cough. ABD: Soft, nontender, nondistended, notable central obesity. EXT: Right great toe is in a compression dressing, left foot is encased in a compression dressing, toes are warm to touch with good capillary refill, there is mild calf tenderness but no swelling or edema or discoloration NEURO: No focal neuromotor or sensory deficits. LABORATORY: Please see below MICROBIOLOGY: Left foot anaerobic cx: Pending Left foot aerobic cx: Streptococcus agalactiae, staph aureus and streptococcus mitis, sensitivities listed Blood cultures x 2 sets: NG at 72 hrs ASSESSMENT: 44 y/o M treated for left foot ulcer/abscess s/p I&D. PLAN: 1. Left foot ulcer/abscess s/p I&D, post-op day 4. -WBC wnl, afebrile. -Wound/abscess culture above -Initially treated with Vancomycin since 09/27/19, now on cefazolin per s ensitivities (Day 5 of appropriate treatment) -C/w daily CBC, wound care per podiatry -Will discuss PT/OT and discharge plan with podiatry 2. DM type II, uncontrolled. -HbA1c 10.8, BS high as 300's 09/30/19 -Increased levemir QAM today. C/w dose of HS levemir -C/w ISS, AC/HS blood sugar checks, consistent carb diet. 3. DVT prophylaxis -Heparin DISPOSITION: Currently inpatient status. Will touch base with podiatry today to discuss PT/OT and discharge plans VS, I&O, 24H, Fishbone Vital Signs/I&O Vital Signs Date Time Temp Pulse Resp B/P (MAP) Pulse Ox O2 Delivery O2 Flow Rate FiO2 10/01/19 14:00 97.9 91 17 122/77 (92) 98 Room Air I&O- Last 24 Hours up to 6 AM 10/01/19 06:00 Intake Total 3930 ml Output Total 0 ml Balance 3930 ml Laboratory Data 24H LABS Laboratory Tests 2 09/30/19 20:50: Bedside Glucose (Misc Panel) 245H 10/01/19 06:22: Immature Granulocyte % (Auto) 0.6, Neutrophils (%) (Auto) 62.9, Lymphocytes (%) (Auto) 19.9L, Monocytes (%) (Auto) 12.2H, Eosinophils (%) (Auto) 3.6H, Basophils (%) (Auto) 0.8, Neutrophils # (Auto) 3.4, Lymphocytes # (Auto) 1.1L, Monocytes # (Auto) 0.7, Eosinophils # (Auto) 0.2, Basophils # (Auto) 0.0, Nucleated Red Blood Cells % (auto) 0.0, Anion Gap 6L, Glomerular Filtration Rate > 60.0, Calcium Level 8.6, Magnesium Level 1.9, C-Reactive Protein, Quantitative 8.10H 10/01/19 11:34: Bedside Glucose (Misc Panel) 292H 10/01/19 16:35: Bedside Glucose (Misc Panel) 162H CBC/BMP Laboratory Tests 10/01/19 06:22 Microbiology Microbiology 09/27/19 Gram Stain - Final, Complete 09/27/19 Abscess Culture - Final, Complete Strep Agalactiae Group B Staphylococcus Aureus Streptococcus Mitis 09/27/19 Anaerobic Culture, Received Pending 09/27/19 Blood Culture - Preliminary, Resulted No Growth after 72 hours. All specime... 09/27/19 Blood Culture - Preliminary, Resulted No Growth after 72 hours. All specime... Current Medications Current Medications Medications (Trade) Dose Ordered Sig/Saqib Route PRN Reason Start Time Stop Time Status Last Admin Dose Admin Acetaminophen (Tylenol Tab) 650 mg Q4H PRN PO PAIN OR FEVER 09/27/19 13:30 09/27/19 21:49 Atorvastatin Calcium (Lipitor) 80 mg DAILY PO 09/28/19 09:00 10/01/19 08:37 Cefazolin Sodium/ Dextrose 2 gm/IV Miscellaneous Supplies 50 ml @ 75 mls/hr Q8H IV 09/30/19 12:00 10/01/19 08:41 DC 10/01/19 04:00 Cefazolin Sodium/ Dextrose 2 gm/IV Miscellaneous Supplies 50 ml @ 75 mls/hr Q8H IV 10/01/19 12:00 10/01/19 11:48 Dextrose (Dextrose 50%) 25 ml ASDIRECTED PRN IV SEE LABEL COMMENTS 09/27/19 13:30 Fentanyl Citrate (Sublimaze) 25 mcg Q5MP PRN IV PAIN LEVEL 5-10 09/27/19 17:45 09/27/19 18:45 DC Gabapentin (Neurontin) 100 mg TID PO 09/27/19 16:00 10/01/19 16:47 Glucagon (Glucagon) 1 mg ASDIRECTED PRN SC SEE LABEL COMMENTS 09/27/19 13:30 Glucose (Glucose) 16 GM ASDIRECTED PRN PO SEE LABEL COMMENTS 09/27/19 13:30 Heparin Sodium (Porcine) (Heparin) 5,000 units Q12H SQ 09/29/19 21:00 10/01/19 08:34 Home Med (Med Rec Complete!) ASDIRECTED XX 09/27/19 12:45 09/27/19 12:40 DC Insulin Detemir (Levemir Insulin) 5 units BID SC 09/27/19 21:00 09/29/19 07:35 DC 09/28/19 21:14 Insulin Detemir (Levemir Insulin) 12 units BID SC 09/29/19 09:00 10/01/19 08:37 DC 09/30/19 22:22 Insulin Detemir (Levemir Insulin) 12 units QHS SC 10/01/19 21:00 Insulin Detemir (Levemir Insulin) 18 units QAM SC 10/01/19 09:00 Insulin Human Lispro (HumaLOG INSULIN) SEE PROTOCOL TABLE AC SC 09/27/19 17:30 10/01/19 16:48 Insulin Human Lispro (HumaLOG INSULIN) SEE PROTOCOL TABLE QHS SC 09/27/19 21:00 09/28/19 21:15 Lactated Ringer's 1,000 ml @ 100 mls/hr Q10H IV 09/27/19 17:45 09/27/19 18:45 DC Lisinopril (Prinivil) 5 mg DAILY PO 09/28/19 09:00 10/01/19 08:36 Metoclopramide HCl (Reglan) 5 mg Q8H PO 10/01/19 14:00 10/01/19 14:25 Ondansetron HCl (ZOFRAN INJection) 4 mg Q4HP PRN IV NAUSEA OR VOMITING 09/27/19 17:45 09/27/19 18:45 DC Ondansetron HCl (ZOFRAN INJection) 4 mg Q6HP PRN IV NAUSEA OR VOMITING 09/28/19 14:00 10/01/19 05:06 Oxycodone HCl (Roxicodone, Oxyir) 10 mg Q6HP PRN PO SEVERE PAIN (PS 8-10) 09/27/19 13:30 10/01/19 10:10 Oxycodone/ Acetaminophen (Percocet 5mg/ 325mg Tablet) 1 tab ASDIRECTED PRN PO PAIN LEVEL 1-4 09/27/19 17:45 09/27/19 18:45 DC Pantoprazole Sodium (Protonix) 40 mg DAILY PO 09/28/19 09:00 10/01/19 08:36 Piperacillin Sod/ Tazobactam Sod 3.375 gm/Dextrose 50 ml @ 50 mls/hr Q6H IV 09/27/19 18:00 09/29/19 16:05 DC 09/29/19 11:59 Polyethylene Glycol (Miralax) 1 pkt DAILY PO 09/30/19 09:00 10/01/19 08:36 Ramelteon (Rozerem) 8 mg QHS PRN PO INSOMNIA 09/28/19 20:45 09/30/19 22:21 Senna/Docusate Sodium (Senokot S) 2 tab QHS PO 09/29/19 21:00 Silver Sulfadiazine (Silvadene 1%) To bilateral gr... TID TOP 09/29/19 16:00 10/01/19 08:37 Sodium Chloride 1,000 ml @ 100 mls/hr Q10H IV 09/27/19 13:30 09/30/19 13:57 DC 09/30/19 12:05 Vancomycin HCl 500 mg/Dextrose 110 ml @ 110 mls/hr Q6H IV 09/29/19 22:00 7/13/20 11:20 DC 09/30/19 10:13 Vancomycin HCl 500 mg/Dextrose 110 ml @ 110 mls/hr Q6H IV 10/01/19 08:45 10/01/19 10:49 DC Vancomycin HCl 1000 mg/IV Miscellaneous Supplies 1 each/ Dextrose 270 ml @ 270 mls/hr Q6H IV 09/28/19 12:00 09/28/19 14:07 DC Vancomycin HCl 1000 mg/IV Miscellaneous Supplies 1 each/ Dextrose 270 ml @ 270 mls/hr Q6H IV 09/28/19 15:00 09/30/19 11:20 DC 09/30/19 07:55 Vancomycin HCl 1000 mg/IV Miscellaneous Supplies 1 each/ Dextrose 270 ml @ 270 mls/hr Q8H IV 09/27/19 20:00 09/28/19 11:49 DC 09/28/19 04:14 Allergies Coded Allergies: No Known Allergies (Unverified , 09/27/19) Jud Hamilton MD Oct 01, 2019 18:04
[2019-10-01] MEDS: AMPICILLIN SOD/SULBACTAM SOD 1.5 GM in D5W MINI-BAG PLUS 50 ML IV SCH (19:38)
[2019-10-01] MEDS ORDERED: PROHANCE 279.3MG/ML 15ML VIAL As Ordered ONE (20:49)
[2019-10-01] MEDS ORDERED: PROHANCE 279.3MG/ML 5ML VIAL As Ordered ONE (20:49)
--- NOTE | 2019-10-01 21:04 | IPN ---
DATE: 10/01/2019 Patient seen today at bedside for evaluation of a central space abscess of the left foot. The patient was switched to Keflex; states that he experienced nausea with this medication. Also states he has noticed a slight increase in swelling of the 4th toe of the left foot. He was seen today for evaluation. PHYSICAL EXAM: Bandage was removed today. The incisions are displaying no purulence. Minimal necrotic tissue was noted along the lateral wound margin on the dorsal aspect of the foot. No necrotic tissue on the plantar aspect of the foot is noted. On compression of the wound, there was no abscess formation seen. Some tenderness to palpation over the dorsal aspect of the 4th metatarsal. Laboratory studies were reviewed. White count measures 5.3. C-reactive protein is trending downward, being 8.10 today. GFR is greater than 60. ASSESSMENT: Improving cellulitis/central space abscess of the left foot. Osteomyelitis cannot be excluded of the 4th metatarsal. PLAN: Ordered an MRI of the left foot. If there is no bone infection, we discussed with the patient a delayed primary closure of the dorsal wound leaving the plantar wound open for drainage. If the bone is infected, the patient wishes to try antibiotics for 6 weeks. We discussed with the patient that since his diabetes is in poor control, he would have to try to improve his management of his diabetes as well as there is an increased chance of failure with oral antibiotics, possible peripherally inserted central catheter (PICC) line for 6 weeks antibiotic coverage, still without guarantee of success. Patient had surgery on Monday; therefore, discontinue his present narcotic and switch to Ultram 50 mg one by mouth every 8 hours. Antibiotic switched since he has nausea with Keflex. Superior coverage will be provided with Unasyn 1.5 grams every 6 hours. His questions were answered.
[2019-10-01] MEDS: traMADol 50 MG TAB PO PRN (21:25)
[2019-10-01] MEDS: SENOKOT S TAB PO SCH (21:26)
[2019-10-01] MEDS: RAMELTEON 8 MG TAB (ROZEREM) PO PRN (21:31)
--- NOTE | 2019-10-01 21:55 | REPVR ---
PROCEDURE INFORMATION: Exam: MR Left Lower Extremity Without and With Contrast; Forefoot Exam date and time: 10/01/2019 9:05 PM Age: 44 years old Clinical indication: Condition or disease; Other: Osteo 4 metatarsal vs central space TECHNIQUE: Imaging protocol: MR of the Left foot without and with intravenous contrast. Exam focused on the forefoot. Contrast material: PROHANCE; Contrast volume: 20 ml; Contrast route: INTRAVENOUS (IV); COMPARISON: CR Foot, Ap, Lat 09/27/2019 11:21 AM FINDINGS: Bones and cartilage: Marrow edema is identified is identified involving the 4th and 5th metatarsal bones, most significant distally. Marrow edema is identified involving the 4th and 5th digits as well as the distal 1st phalanx. These findings are concerning for osteomyelitis in the appropriate clinical setting. Abnormal morphology of the proximal 4th and 5th metatarsal bones, consistent with old fractures. Mild cystic/edematous change identified involving the medial talar dome. This is likely secondary to arthropathy or due to osteochondral injury. Evaluation of the hindfoot is limited on this study. Mild marrow edema is identified involving the cuboid bone and anterior aspect of the calcaneus. Additional osteomyelitis cannot be excluded. Joint spaces: Moderate effusions identified at the 4th and 5th MTP joints, with a small effusion at the 1st MTP joint. Small tibiotalar and subtalar joint effusions identified. Fluid is seen within the spring ligament recess. LIGAMENTS: Collateral ligaments of digits: No evidence of tear. Lisfranc ligament: No visualized tear of the Lisfranc ligament. TENDONS: Flexor tendons of foot: See below. Tibialis posterior tendon: Tenosynovitis of the flexor hallucis tendon and posterior tibialis tendon. Mild tenosynovitis of the peroneal tendons. Extensor tendons of foot: No evidence of tear. Tarsal canal (Sinus tarsi): Small cystic collections of fluid and edema are identified within the sinus tarsi. Muscles: Patchy muscle edema, suggestive of myositis or diabetic myopathy. Soft tissues: Soft tissue swelling of the foot identified. There are ulcerations involving the plantar and dorsal aspects of the lateral forefoot. Multiple foci of hypointense gas are identified within the soft tissues of the lateral forefoot, with extension of gas into the dorsal aspect of the 4th digit. The lateral forefoot is hypointense on postcontrast images as well. These findings are concerning for necrotizing infection or abscess. IMPRESSION: 1. Marrow edema is identified is identified involving the 4th and 5th metatarsal bones, most significant distally. Marrow edema is identified involving the 4th and 5th digits as well as the distal 1st phalanx. These findings are concerning for osteomyelitis in the appropriate clinical setting. 2. Soft tissue swelling of the foot identified. There are ulcerations involving the plantar and dorsal aspects of the lateral forefoot. 3. Multiple foci of hypointense gas are identified within the soft tissues of the lateral forefoot, with extension of gas into the dorsal aspect of the 4th digit. The lateral forefoot is hypointense on postcontrast images as well. These findings are concerning for necrotizing infection or abscess. 4. Mild marrow edema is identified involving the cuboid bone and anterior aspect of the calcaneus. Additional osteomyelitis cannot be excluded. 5. Mild cystic/edematous change identified involving the medial talar dome. This is likely secondary to arthropathy or due to osteochondral injury. Evaluation of the hindfoot is limited on this study. 6. Moderate effusions identified at the 4th and 5th MTP joints, with a small effusion at the 1st MTP joint. 7. Abnormal morphology of the proximal 4th and 5th metatarsal bones, consistent with old fractures. 8. Patchy muscle edema, suggestive of myositis or diabetic myopathy. 9. Tenosynovitis of the flexor hallucis tendon and posterior tibialis tendon. Mild tenosynovitis of the peroneal tendons. 10. Additional findings described above. Electronically signed by: Milad Robledo On 10/01/2019 21:54:50 PM
[2019-10-01 22:00] VITALS: BP 151/92
[2019-10-02] MEDS: AMPICILLIN SOD/SULBACTAM SOD 1.5 GM in D5W MINI-BAG PLUS 50 ML IV SCH ×4 (01:10→20:00)
[2019-10-02] MEDS: METOCLOPRAMIDE 5 MG TAB PO SCH ×3 (05:31→21:34)
[2019-10-02 06:00] VITALS: BP 125/70
[2019-10-02] MEDS: traMADol 50 MG TAB PO PRN ×3 (06:40→21:44)
[2019-10-02 06:41] LABS: BASO % 0.8 % (0.0-1.0); EOS # 0.2 10^3/uL (0.0-0.5); HEMOGLOBIN 13.6 g/dl (13.5-17.5); LYMPH # 1.4 10^3/uL (1.5-5.0); LYMPH % 27.1 % (24.0-44.0); MEAN CORPUSCULAR HEMOGLOBIN 29.1 pg (27.0-33.0); MEAN CORPUSCULAR VOLUME 85.7 fl (80.0-96.0); MONO # 0.6 10^3/uL (0.0-0.8); MONO % 12.1 % (0.0-5.0); NEUTROPHILS # 2.9 10^3/uL (1.5-8.5); NEUTROPHILS % 55.6 % (36.0-66.0); PLATELET COUNT, AUTOMATED 234 10^3/uL (150-450); RED BLOOD COUNT 4.67 10^6/uL (4.30-6.10); WHITE BLOOD COUNT 5.3 10^3/uL (4.0-10.0)
[2019-10-02 06:57] LABS: BLOOD UREA NITROGEN 9 MG/DL (7-18); CALCIUM LEVEL 8.8 MG/DL (8.5-10.1); CARBON DIOXIDE LEVEL 30 MEQ/L (21-32); CHLORIDE LEVEL 98 MEQ/L (98-107); CREATININE FOR GFR 0.74 MG/DL (0.70-1.30); GLOMERULAR FILTRATION RATE > 60.0 (>60); GLUCOSE, FASTING 293 MG/DL (70-100); MAGNESIUM LEVEL 2.1 MG/DL (1.8-2.4); POTASSIUM SERUM 4.2 MEQ/L (3.5-5.1); SODIUM LEVEL 134 MEQ/L (136-145)
[2019-10-02] MEDS: HumaLOG INSULIN (NovoLOG) PER UNIT SC SCH ×4 (07:45→21:00)
[2019-10-02] MEDS: lisinopriL 5 MG TAB PO SCH (08:40)
[2019-10-02] MEDS: PANTOPRAZOLE 40MG TAB (PROTONIX) PO SCH (08:40)
[2019-10-02] MEDS: ATORVASTATIN 20 MG TAB PO SCH (08:40)
[2019-10-02] MEDS: GABAPENTIN 100 MG CAP PO SCH ×3 (08:40→21:35)
[2019-10-02] MEDS: CLINDAMYCIN 600 MG in IV 1 EA IV SCH ×3 (08:40→21:36)
[2019-10-02] MEDS: SILVER SULFADIAZINE 1% CR 50 GM JAR TOP SCH ×3 (08:42→21:36)
[2019-10-02] MEDS: MIRALAX *UNIT DOSE* 17GM PACKET PO SCH (08:43)
[2019-10-02] MEDS: HEPARIN SOD (PORCINE) 5000UNITS/ML 1ML VIAL/SYRINGE SQ SCH ×2 (08:43→21:35)
[2019-10-02] MEDS: LEVEMIR (INSULIN DETEMIR) 1 UNITS/0.01ML SC SCH (08:54)
[2019-10-02 14:00] VITALS: BP 107/76
[2019-10-02] MEDS ORDERED: VANCOMYCIN 500MG/10ML VIAL As Ordered ONE (17:24)
[2019-10-02] MEDS ORDERED: LIDOCAINE 2% MDV 20ML VIAL As Ordered ONE (17:28)
[2019-10-02] MEDS ORDERED: BUPIVACAINE HCL 0.5% 30 ML VIAL As Ordered ONE (17:28)
[2019-10-02] MEDS ORDERED: dexameTHASONE 4 MG/ML 1ML VIAL (J1100 PER 1MG) As Ordered ONE (17:55)
[2019-10-02] MEDS ORDERED: ONDANSETRON 4MG/2ML VIAL As Ordered ONE (17:55)
[2019-10-02] MEDS ORDERED: propofoL 500 MG/50 ML VIAL As Ordered ONE (17:56)
[2019-10-02] MEDS ORDERED: fentaNYL 100 MCG/2 ML INJECTION (J3010) As Ordered ONE (17:57)
[2019-10-02] MEDS ORDERED: MIDAZOLAM INJ 2MG/2ML VIAL (J2250 PER 1MG) As Ordered ONE (17:57)
--- NOTE | 2019-10-02 18:09 | IPNPDOC ---
Date Seen The patient was seen on 10/02/19. Progress Note SUBJECTIVE Patient is currently post-op day #5 from I&D to the dorsum of diabetic ulcer/abscess of left foot. MRI left foot done showing ulcerations of lateral left forefoot, multiple area of concern for possible necrotizing infection, osteomyelitis vs. osteitis, myositis. Discussed results with podiatry (Dr. Alcala) who believed this to be more osteitis with continued areas of ulceration requiring debridement. To be taken for debridement again today. Started Clindamycin in addition to Unasyn. Blood sugars uncontrolled, levemir adjusted. Diabetic education ordered, will need teaching on insulins prior to discharge. Added reglan 10/01/19 for supsected gastroparesis with chronic nausea, much improved today. Denies chest pain, n/v, fevers, chills. OBJECTIVE: VITAL SIGNS: Please see below PHYSICAL EXAMINATION: GENERAL: Patient is awake, alert and conversant, comfortable HENT: Neck is supple with no adenopathy or thyromegaly, oral mucosa is moist. CV: Regular rate and rhythm with a normal S1 and S2 and no murmur. RESP: Clear to auscultation, no rhonchi, rales, wheezes or cough. ABD: Soft, nontender, nondistended, notable central obesity. EXT: Right great toe is in a compression dressing, left foot is encased in a compression dressing, toes are warm to touch with good capillary refill, there is mild calf tenderness but no swelling or edema or discoloration NEURO: No focal neuromotor or sensory deficits. LABORATORY: Please see below IMAGING: MRI left foot: 1. Marrow edema is identified is identified involving the 4th and 5th metatarsal bones, most significant distally. Marrow edema is identified involving the 4th and 5th digits as well as the distal 1st phalanx. These findings are concerning for osteomyelitis in the appropriate clinical setting. 2. Soft tissue swelling of the foot identified. There are ulcerations involving the plantar and dorsal aspects of the lateral forefoot. 3. Multiple foci of hypointense gas are identified within the soft tissues of the lateral forefoot, with extension of gas into the dorsal aspect of the 4th digit. The lateral forefoot is hypointense on postcontrast images as well. These findings are concerning for necrotizing infection or abscess. 4. Mild marrow edema is identified involving the cuboid bone and anterior aspect of the calcaneus. Additional osteomyelitis cannot be excluded. 5. Mild cystic/edematous change identified involving the medial talar dome. This is likely secondary to arthropathy or due to osteochondral injury. Evaluation of the hindfoot is limited on this study. 6. Moderate effusions identified at the 4th and 5th MTP joints, with a small effusion at the 1st MTP joint. 7. Abnormal morphology of the proximal 4th and 5th metatarsal bones, consistent with old fractures. 8. Patchy muscle edema, suggestive of myositis or diabetic myopathy. 9. Tenosynovitis of the flexor hallucis tendon and posterior tibialis tendon. Mild tenosynovitis of the peroneal tendons. MICROBIOLOGY: Left foot anaerobic cx: Pending Left foot aerobic cx: Streptococcus agalactiae, staph aureus and streptococcus mitis, sensitivities listed Blood cultures x 2 sets: NG at 72 hrs ASSESSMENT: 44 y/o M treated for left foot ulcer/abscess s/p I&D to be taken for additional debridement today by podiatry. PLAN: 1. Left foot ulcer/abscess s/p I&D, post-op day 5. Taking back 10/02/19 by podiat ry for additional debridement due to ulcerations, ? necrotizing infection on most recent MRI above -WBC wnl, afebrile. -Micro thus far above, anaerobic cx still pending -Previously treated with Vancomycin since 09/27/19, then cefazolin per sensitivities. -C/w daily CBC, wound care per podiatry -Pain and bowel regimen in place -Infectious disease discussed case with Dr. Kulkarni (infectious disease) -C/w Unasyn (Day 2) and Clindamycin (Day 1)- Overall day 6 of appropriate treatment. 2. DM type II, uncontrolled. -HbA1c 10.8, BS high as 358 -Switched to levemir 23 U QAM and levemir 18 U QPM -C/w ISS, AC/HS blood sugar checks, consistent carb diet. -Diabetic education ordered, as patient will likely need to go home with insulin 3. Nausea, chronic likely gastroparesis 2/2 to uncontrolled DM -Patient states this has been going on for almost a year -Added reglan and this has improved -Will need gastric emptying testing as o/p 4. Peripheral neuropathy 2/2 to uncontrolled DM - Gabapentin TID 5. HLD -statin 6. GERD -PPI 7. DVT px -Heparin DISPOSITION: Currently inpatient status. Discharge plan yet undetermined but may involve IV antibiotics. Patient will need PT/OT evaluation prior to d/c. VS, I&O, 24H, Fishbone Vital Signs/I&O Vital Signs Date Time Temp Pulse Resp B/P (MAP) Pulse Ox O2 Delivery O2 Flow Rate FiO2 10/02/19 15:37 16 10/02/19 14:00 97.0 83 107/76 (86) 99 Room Air I&O- Last 24 Hours up to 6 AM 10/02/19 06:00 Intake Total 1780 ml Output Total 0 ml Balance 1780 ml Laboratory Data 24H LABS Laboratory Tests 2 10/01/19 21:20: Bedside Glucose (Misc Panel) 195H 10/02/19 06:19: Immature Granulocyte % (Auto) 0.4, Neutrophils (%) (Auto) 55.6, Lymphocytes (%) (Auto) 27.1, Monocytes (%) (Auto) 12.1H, Eosinophils (%) (Auto) 4.0H, Basophils (%) (Auto) 0.8, Neutrophils # (Auto) 2.9, Lymphocytes # (Auto) 1.4L, Monocytes # (Auto) 0.6, Eosinophils # (Auto) 0.2, Basophils # (Auto) 0.0, Nucleated Red Blood Cells % (auto) 0.0, Anion Gap 6L, Glomerular Filtration Rate > 60.0, C alcium Level 8.8, Magnesium Level 2.1, C-Reactive Protein, Quantitative 5.60H 10/02/19 11:32: Bedside Glucose (Misc Panel) 358H 10/02/19 14:01: Bedside Glucose (Misc Panel) 205H 10/02/19 16:27: Bedside Glucose (Misc Panel) 145H CBC/BMP Laboratory Tests 10/02/19 06:19 Microbiology Microbiology 09/27/19 Gram Stain - Final, Complete 09/27/19 Abscess Culture - Final, Complete Strep Agalactiae Group B Staphylococcus Aureus Streptococcus Mitis 09/27/19 Anaerobic Culture, Received Pending 09/27/19 Blood Culture - Final, Complete NO GROWTH AFTER 5 DAYS 09/27/19 Blood Culture - Final, Complete NO GROWTH AFTER 5 DAYS Current Medications Current Medications Medications (Trade) Dose Ordered Sig/Saqib Route PRN Reason Start Time Stop Time Status Last Admin Dose Admin Acetaminophen (Tylenol Tab) 650 mg Q4H PRN PO PAIN OR FEVER 09/27/19 13:30 09/27/19 21:49 Ampicillin Sodium/ Sulbactam Sodium 1.5 gm/Dextrose 50 ml @ 100 mls/hr Q6H IV 10/01/19 19:00 10/04/19 18:59 10/02/19 12:24 Atorvastatin Calcium (Lipitor) 80 mg DAILY PO 09/28/19 09:00 10/02/19 08:40 Cefazolin Sodium/ Dextrose 2 gm/IV Miscellaneous Supplies 50 ml @ 75 mls/hr Q8H IV 09/30/19 12:00 10/01/19 08:41 DC 10/01/19 04:00 Cefazolin Sodium/ Dextrose 2 gm/IV Miscellaneous Supplies 50 ml @ 75 mls/hr Q8H IV 10/01/19 12:00 10/01/19 18:29 DC 10/01/19 11:48 Clindamycin Phosphate 600 mg/ IV Miscellaneous Supplies 50 ml @ 100 mls/hr Q6H IV 10/02/19 09:00 10/02/19 14:10 Dextrose (Dextrose 50%) 25 ml ASDIRECTED PRN IV SEE LABEL COMMENTS 09/27/19 13:30 Fentanyl Citrate (Sublimaze) 25 mcg Q5MP PRN IV PAIN LEVEL 5-10 09/27/19 17:45 09/27/19 18:45 DC Gabapentin (Neurontin) 100 mg TID PO 09/27/19 16:00 10/02/19 16:13 Glucagon (Glucagon) 1 mg ASDIRECTED PRN SC SEE LABEL COMMENTS 09/27/19 13:30 Glucose (Glucose) 16 GM ASDIRECTED PRN PO SEE LABEL COMMENTS 09/27/19 13:30 Heparin Sodium (Porcine) (Heparin) 5,000 units Q12H SQ 09/29/19 21:00 10/01/19 21:26 Home Med (Med Rec Complete!) ASDIRECTED XX 09/27/19 12:45 09/27/19 12:40 DC Insulin Detemir (Levemir Insulin) 5 units BID SC 09/27/19 21:00 09/29/19 07:35 DC 09/28/19 21:14 Insulin Detemir (Levemir Insulin) 12 units BID SC 09/29/19 09:00 10/01/19 08:37 DC 09/30/19 22:22 Insulin Detemir (Levemir Insulin) 12 units QHS VA 10/01/19 21:00 10/02/19 08:32 DC 10/01/19 21:27 Insulin Detemir (Levemir Insulin) 18 units QAM VA 10/01/19 09:00 10/02/19 08:32 DC Insulin Detemir (Levemir Insulin) 18 units QHS VA 10/02/19 21:00 Insulin Detemir (Levemir Insulin) 23 units QAM VA 10/02/19 09:00 10/02/19 08:54 Insulin Human Lispro (HumaLOG INSULIN) SEE PROTOCOL TABLE AC VA 09/27/19 17:30 10/02/19 12:24 Insulin Human Lispro (HumaLOG INSULIN) SEE PROTOCOL TABLE QHS VA 09/27/19 21:00 09/28/19 21:15 Lactated Ringer's 1,000 ml @ 100 mls/hr Q10H IV 09/27/19 17:45 09/27/19 18:45 DC Lisinopril (Prinivil) 5 mg DAILY PO 09/28/19 09:00 10/02/19 08:40 Metoclopramide HCl (Reglan) 5 mg Q8H PO 10/01/19 14:00 10/02/19 14:09 Ondansetron HCl (ZOFRAN INJection) 4 mg Q4HP PRN IV NAUSEA OR VOMITING 09/27/19 17:45 09/27/19 18:45 DC Ondansetron HCl (ZOFRAN INJection) 4 mg Q6HP PRN IV NAUSEA OR VOMITING 09/28/19 14:00 10/01/19 05:06 Oxycodone HCl (Roxicodone, Oxyir) 10 mg Q6HP PRN PO SEVERE PAIN (PS 8-10) 09/27/19 13:30 10/01/19 18:29 DC 10/01/19 10:10 Oxycodone/ Acetaminophen (Percocet 5mg/ 325mg Tablet) 1 tab ASDIRECTED PRN PO PAIN LEVEL 1-4 09/27/19 17:45 09/27/19 18:45 DC Pantoprazole Sodium (Protonix) 40 mg DAILY PO 09/28/19 09:00 10/02/19 08:40 Piperacillin Sod/ Tazobactam Sod 3.375 gm/Dextrose 50 ml @ 50 mls/hr Q6H IV 09/27/19 18:00 09/29/19 16:05 DC 09/29/19 11:59 Polyethylene Glycol (Miralax) 1 pkt DAILY PO 09/30/19 09:00 10/01/19 08:36 Ramelteon (Rozerem) 8 mg QHS PRN PO INSOMNIA 09/28/19 20:45 10/01/19 21:31 Senna/Docusate Sodium (Senokot S) 2 tab QHS PO 09/29/19 21:00 10/01/19 21:26 Silver Sulfadiazine (Silvadene 1%) To bilateral gr... TID TOP 09/29/19 16:00 10/02/19 16:13 Sodium Chloride 1,000 ml @ 100 mls/hr Q10H IV 09/27/19 13:30 09/30/19 13:57 DC 09/30/19 12:05 Tramadol HCl (Ultram) 50 mg Q8HP PRN PO MODERATE PAIN (PS 5-7) 10/01/19 18:30 10/04/19 18:30 10/02/19 15:07 Vancomycin HCl 500 mg/Dextrose 110 ml @ 110 mls/hr Q6H IV 09/29/19 22:00 09/30/19 11:20 DC 09/30/19 10:13 Vancomycin HCl 500 mg/Dextrose 110 ml @ 110 mls/hr Q6H IV 10/01/19 08:45 10/01/19 10:49 DC Vancomycin HCl 1000 mg/IV Miscellaneous Supplies 1 each/ Dextrose 270 ml @ 270 mls/hr Q6H IV 09/28/19 12:00 09/28/19 14:07 DC Vancomycin HCl 1000 mg/IV Miscellaneous Supplies 1 each/ Dextrose 270 ml @ 270 mls/hr Q6H IV 09/28/19 15:00 09/30/19 11:20 DC 09/30/19 07:55 Vancomycin HCl 1000 mg/IV Miscellaneous Supplies 1 each/ Dextrose 270 ml @ 270 mls/hr Q8H IV 7/10/20 20:00 09/28/19 11:49 DC 09/28/19 04:14 Allergies Coded Allergies: No Known Allergies (Unverified , 09/27/19) Jud Hamilton MD Oct 02, 2019 18:09
[2019-10-02] MEDS ORDERED: PERCOCET 5MG/325MG TAB PO PRN (19:30)
[2019-10-02] MEDS ORDERED: fentaNYL 100 MCG/2 ML INJECTION (J3010) IV PRN (19:30)
[2019-10-02] MEDS ORDERED: LR 1,000 ML IV SCH (19:30)
[2019-10-02] MEDS ORDERED: ONDANSETRON 4MG/2ML VIAL IV PRN (19:30)
[2019-10-02] MEDS ORDERED: METOCLOPRAMIDE INJ 10MG/2ML VIAL (J2765 PER 1) IV PRN (19:30)
[2019-10-02] MEDS ORDERED: MEPERIDINE INJ 25 MG/ML VIAL (J2175) IV PRN (19:30)
[2019-10-02 19:42] VITALS: BP 138/84
[2019-10-02] MEDS: LACTOBACILLUS ACIDOPHILUS CAP (BACID) PO SCH (20:04)
[2019-10-02] MEDS ORDERED: LEVEMIR (INSULIN DETEMIR) 1 UNITS/0.01ML SC SCH (21:00)
[2019-10-02] MEDS: SENOKOT S TAB PO SCH (21:34)
[2019-10-02] MEDS: RAMELTEON 8 MG TAB (ROZEREM) PO PRN (21:44)
[2019-10-02 22:00] VITALS: BP 138/85
[2019-10-03] MEDS: AMPICILLIN SOD/SULBACTAM SOD 1.5 GM in D5W MINI-BAG PLUS 50 ML IV SCH ×4 (00:26→18:39)
[2019-10-03] MEDS: CLINDAMYCIN 600 MG in IV 1 EA IV SCH ×3 (03:09→15:06)
[2019-10-03 06:00] VITALS: BP_SYST 108; BP_SYST 123; BP_DIAS 52; BP_DIAS 81
[2019-10-03] MEDS: METOCLOPRAMIDE 5 MG TAB PO SCH ×4 (06:00→21:34)
[2019-10-03 06:06] LABS: BASO % 0.3 % (0.0-1.0); EOS % 0.4 % (0.0-3.0); HEMATOCRIT 41.5 % (42.0-52.0); HEMOGLOBIN 14.3 g/dl (13.5-17.5); LYMPH # 1.3 10^3/uL (1.5-5.0); LYMPH % 17.1 % (24.0-44.0); MEAN CORPUSCULAR HEMOGLOBIN 29.2 pg (27.0-33.0); MEAN CORPUSCULAR HGB CONC 34.5 g/dl (32.0-36.5); MEAN CORPUSCULAR VOLUME 84.9 fl (80.0-96.0); MONO # 0.5 10^3/uL (0.0-0.8); MONO % 7.1 % (0.0-5.0); NEUTROPHILS # 5.5 10^3/uL (1.5-8.5); NEUTROPHILS % 74.6 % (36.0-66.0); PLATELET COUNT, AUTOMATED 274 10^3/uL (150-450); RED BLOOD COUNT 4.89 10^6/uL (4.30-6.10); WHITE BLOOD COUNT 7.3 10^3/uL (4.0-10.0)
[2019-10-03 06:35] LABS: BLOOD UREA NITROGEN 11 MG/DL (7-18); C REACTIVE PROTEIN QUANTITATIV 3.28 MG/DL (0.00-0.30); CALCIUM LEVEL 8.8 MG/DL (8.5-10.1); CARBON DIOXIDE LEVEL 29 MEQ/L (21-32); CHLORIDE LEVEL 98 MEQ/L (98-107); GLOMERULAR FILTRATION RATE > 60.0 (>60); GLUCOSE, FASTING 307 MG/DL (70-100); MAGNESIUM LEVEL 2.1 MG/DL (1.8-2.4); POTASSIUM SERUM 4.5 MEQ/L (3.5-5.1); SODIUM LEVEL 133 MEQ/L (136-145)
[2019-10-03] MEDS: traMADol 50 MG TAB PO PRN ×2 (07:56→18:48)
[2019-10-03 08:00] VITALS: BP 128/83
[2019-10-03] MEDS: HEPARIN SOD (PORCINE) 5000UNITS/ML 1ML VIAL/SYRINGE SQ SCH ×2 (08:40→21:32)
[2019-10-03] MEDS: LEVEMIR (INSULIN DETEMIR) 1 UNITS/0.01ML SC SCH (08:42)
[2019-10-03] MEDS: LACTOBACILLUS ACIDOPHILUS CAP (BACID) PO SCH ×2 (08:42→18:39)
[2019-10-03] MEDS: PANTOPRAZOLE 40MG TAB (PROTONIX) PO SCH (08:42)
[2019-10-03] MEDS: HumaLOG INSULIN (NovoLOG) PER UNIT SC SCH ×4 (08:42→21:00)
[2019-10-03] MEDS: ATORVASTATIN 20 MG TAB PO SCH (08:43)
[2019-10-03] MEDS: lisinopriL 5 MG TAB PO SCH (08:44)
[2019-10-03] MEDS: GABAPENTIN 100 MG CAP PO SCH ×3 (08:45→21:33)
[2019-10-03] MEDS: MIRALAX *UNIT DOSE* 17GM PACKET PO SCH (08:46)
--- NOTE | 2019-10-03 10:26 | RO ---
DATE OF OPERATION: 10/02/2019 PREOPERATIVE DIAGNOSIS: Necrotizing fasciitis with necrotic tissue, left wound. POSTOPERATIVE DIAGNOSIS: Necrotizing fasciitis with necrotic tissue, left wound. PROCEDURES PERFORMED: Excisional debridement of necrotic skin, muscle, tendon, ligament, left foot. SURGEON: Steven Simon DPM WEBMETHODS CONSULTANT: None. ANESTHESIA: Local monitored anesthesia care (MAC). IRRIGATION: 3 liters dilute vancomycin solution with a low-pressure pulse lavage system. DRAINS UTILIZED: Is a 1/4-inch Iodoform gauze. ESTIMATED BLOOD LOSS: Less than 5 mL. HEMOSTASIS: None. DESCRIPTION OF OPERATION: On 10/02/2019, this 44-year-old male was taken from his hospital room to the operating room and placed on the operating table in the supine position. Following the induction of intravenous (IV) sedation and local and regional anesthesia, the left lower extremity was prepped and draped in the usual aseptic manner. Attention was directed to the patient's foot, where there was noted to be necrotic skin, muscle, and tendon visible in the wound. Utilizing a White dermal curette, the necrotic tissue was debrided. Abscess formation was noted along the proximal aspect of the 4th toe, which was debrided of any necrotic tissue, and the abscess was evacuated. There was an abscess formation in the lateral aspect of the 5th metatarsal. This was similarly evacuated and debrided with a White dermal curette. All necrotic tissue seen in the wound was excised, including muscle, tendon, ligament. The bone was palpated. It was firm to the touch. It was not directly in the wound since it was covered by its capsule. The wound was then thoroughly lavaged with 3 liters of dilute vancomycin solution with a low-pressure pulse lavage system. Utilizing a 1/4-inch Iodoform gauze, the wound was packed. Utilizing 3-0 nylon, two sutures were placed across the proximal wound to prevent retraction of the wound. A dry sterile dressing was applied, consisting of 4 x 4s, Kerlix, and ABDs with an Raulito wrap utilizing to reinforce the bandage. It was not placed with any compression. The patient, having apparently tolerated the surgical procedure well, was taken from the operating room (OR) to the recovery room for further monitoring by the anesthesia department.
[2019-10-03] MEDS: SILVER SULFADIAZINE 1% CR 50 GM JAR TOP SCH ×3 (10:51→21:33)
[2019-10-03 12:00] VITALS: BP 128/84
[2019-10-03 14:00] VITALS: BP 130/83
--- NOTE | 2019-10-03 18:49 | IPNPDOC ---
Date Seen The patient was seen on 10/03/19. Progress Note SUBJECTIVE Patient is currently post-op day 1 of excisional debridement of necrotic skin, muscle, tendon, ligament, left foot. Pain controlled. BS elevated >300 again, insulins adjusted. Denies chest pain, n/v, fevers, chills. OBJECTIVE: VITAL SIGNS: Please see below PHYSICAL EXAMINATION: GENERAL: Patient is awake, alert and conversant, comfortable HENT: Neck is supple with no adenopathy or thyromegaly, oral mucosa is moist. CV: Regular rate and rhythm with a normal S1 and S2 and no murmur. RESP: Clear to auscultation, no rhonchi, rales, wheezes or cough. ABD: Soft, nontender, nondistended, notable central obesity. EXT: Right great toe is in a compression dressing, left foot is encased in a compression dressing, toes are warm to touch with good capillary refill, there is mild calf tenderness but no swelling or edema or discoloration NEURO: No focal neuromotor or sensory deficits. LABORATORY: Please see below IMAGING: MRI left foot: 1. Marrow edema is identified is identified involving the 4th and 5th metatarsal bones, most significant distally. Marrow edema is identified involving the 4th and 5th digits as well as the distal 1st phalanx. These findings are concerning for osteomyelitis in the appropriate clinical setting. 2. Soft tissue swelling of the foot identified. There are ulcerations involving the plantar and dorsal aspects of the lateral forefoot. 3. Multiple foci of hypointense gas are identified within the soft tissues of the lateral forefoot, with extension of gas into the dorsal aspect of the 4th digit. The lateral forefoot is hypointense on postcontrast images as well. These findings are concerning for necrotizing infection or abscess. 4. Mild marrow edema is identified involving the cuboid bone and anterior aspect of the calcaneus. Additional osteomyelitis cannot be excluded. 5. Mild cystic/edematous change identified involving the medial talar dome. This is likely secondary to arthropathy or due to osteochondral injury. Evaluation of the hindfoot is limited on this study. 6. Moderate effusions identified at the 4th and 5th MTP joints, with a small effusion at the 1st MTP joint. 7. Abnormal morphology of the proximal 4th and 5th metatarsal bones, consistent with old fractures. 8. Patchy muscle edema, suggestive of myositis or diabetic myopathy. 9. Tenosynovitis of the flexor hallucis tendon and posterior tibialis tendon. Mild tenosynovitis of the peroneal tendons. MICROBIOLOGY: Left foot anaerobic cx: PREVOTELLA BIVIA, FUSOBACTERIUM VARIUM Left foot aerobic cx: Streptococcus agalactiae, staph aureus and streptococcus mitis, sensitivities listed Blood cultures x 2 sets: NG at 72 hrs ASSESSMENT: 44 y/o M treated for left foot ulcer/abscess s/p I&D to be taken for additional debridement today by podiatry. PLAN: 1. Left foot ulcer/abscess post-op day 1 for excisional debridement of necrotic skin, muscle, tendon, ligament of left foot -WBC wnl, afebrile. -Post-op day #6 from intial I&D to the dorsum of diabetic ulcer/abscess of left foot -Micro thus far above above, sensitivities pending from anaerobic -Previously treated with Vancomycin since 09/27/19, then cefazolin per sensitivities. -C/w daily CBC, wound care per podiatry -Pain and bowel regimen in place - Dr. Kulkarni (infectious disease) consulted -C/w Unasyn (Day 3) and Clindamycin (Day 2)- Overall day 7 of appropriate treatm ent. -Will call microbiology dept in AM to see if sensitivities available for anaerobic cx 2. DM type II, uncontrolled. -HbA1c 10.8, BS still >300 with modifications made -Increased levemir to 23 U BID -C/w ISS, AC/HS blood sugar checks, consistent carb diet. -Diabetic education ordered, as patient will likely need to go home with insulin 3. Nausea, chronic likely gastroparesis 2/2 to uncontrolled DM -Chronic, improved with reglan -C/w reglan -Will need gastric emptying testing as o/p 4. Peripheral neuropathy 2/2 to uncontrolled DM - Gabapentin TID 5. HLD -statin 6. GERD -PPI 7. DVT px -Heparin DISPOSITION: Currently inpatient status. Discharge plan yet undetermined but may involve IV antibiotics. Patient will need PT/OT evaluation prior to d/c. VS, I&O, 24H, Fishbone Vital Signs/I&O Vital Signs Date Time Temp Pulse Resp B/P (MAP) Pulse Ox O2 Delivery O2 Flow Rate FiO2 10/03/19 14:00 97.9 18 130/83 96 Room Air 10/03/19 14:00 84 10/02/19 19:30 2 I&O- Last 24 Hours up to 6 AM 10/03/19 06:00 Intake Total 860 ml Balance 860 ml Laboratory Data 24H LABS Laboratory Tests 2 10/02/19 20:48: Bedside Glucose (Misc Panel) 207H 10/03/19 05:50: Immature Granulocyte % (Auto) 0.5, Neutrophils (%) (Auto) 74.6H, Lymphocytes (%) (Auto) 17.1L, Monocytes (%) (Auto) 7.1H, Eosinophils (%) (Auto) 0.4, Basophils (%) (Auto) 0.3, Neutrophils # (Auto) 5.5, Lymphocytes # (Auto) 1.3L, Monocytes # (Auto) 0.5, Eosinophils # (Auto) 0.0, Basophils # (Auto) 0.0, Nucleated Red Blood Cells % (auto) 0.0, Anion Gap 6L, Glomerular Filtration Rate > 60.0, Calcium Level 8.8, Magnesium Level 2.1, C-Reactive Protein, Quantitative 3.28H 10/03/19 11:39: Bedside Glucose (Misc Panel) 193H 10/03/19 16:44: Bedside Glucose (Misc Panel) 232H CBC/BMP Laboratory Tests 10/03/19 05:50 Microbiology Microbiology 09/27/19 Gram Stain - Final, Complete 09/27/19 Abscess Culture - Final, Complete Strep Agalactiae Group B Staphylococcus Aureus Streptococcus Mitis 09/27/19 Anaerobic Culture - Final, Complete Prevotella Bivia Fusobacterium Varium 09/27/19 Blood Culture - Final, Complete NO GROWTH AFTER 5 DAYS 09/27/19 Blood Culture - Final, Complete NO GROWTH AFTER 5 DAYS Current Medications Current Medications Medications (Trade) Dose Ordered Sig/Saqib Route PRN Reason Start Time Stop Time Status Last Admin Dose Admin Acetaminophen (Tylenol Tab) 650 mg Q4H PRN PO PAIN OR FEVER 09/27/19 13:30 09/27/19 21:49 Ampicillin Sodium/ Sulbactam Sodium 1.5 gm/Dextrose 50 ml @ 100 mls/hr Q6H IV 10/01/19 19:00 10/04/19 18:59 10/03/19 18:39 Atorvastatin Calcium (Lipitor) 80 mg DAILY PO 09/28/19 09:00 10/03/19 08:43 Cefazolin Sodium/ Dextrose 2 gm/IV Miscellaneous Supplies 50 ml @ 75 mls/hr Q8H IV 09/30/19 12:00 10/01/19 08:41 DC 10/01/19 04:00 Cefazolin Sodium/ Dextrose 2 gm/IV Miscellaneous Supplies 50 ml @ 75 mls/hr Q8H IV 10/01/19 12:00 10/01/19 18:29 DC 10/01/19 11:48 Clindamycin Phosphate 600 mg/ IV Miscellaneous Supplies 50 ml @ 100 mls/hr Q6H IV 10/02/19 09:00 10/03/19 16:55 DC 10/03/19 15:06 Dextrose (Dextrose 50%) 25 ml ASDIRECTED PRN IV SEE LABEL COMMENTS 09/27/19 13:30 Fentanyl Citrate (Sublimaze) 25 mcg Q5MP PRN IV PAIN LEVEL 5-10 09/27/19 17:45 09/27/19 18:45 DC Fentanyl Citrate (Sublimaze) 25 mcg Q5MP PRN IV PAIN LEVEL 5-10 10/02/19 19:30 10/02/19 20:30 DC Gabapentin (Neurontin) 100 mg TID PO 09/27/19 16:00 10/03/19 15:06 Glucagon (Glucagon) 1 mg ASDIRECTED PRN SC SEE LABEL COMMENTS 09/27/19 13:30 Glucose (Glucose) 16 GM ASDIRECTED PRN PO SEE LABEL COMMENTS 09/27/19 13:30 Heparin Sodium (Porcine) (Heparin) 5,000 units Q12H SQ 09/29/19 21:00 10/03/19 08:40 Home Med (Med Rec Complete!) ASDIRECTED XX 09/27/19 12:45 09/27/19 12:40 DC Insulin Detemir (Levemir Insulin) 5 units BID SC 09/27/19 21:00 09/29/19 07:35 DC 09/28/19 21:14 Insulin Detemir (Levemir Insulin) 12 units BID SC 09/29/19 09:00 10/01/19 08:37 DC 09/30/19 22:22 Insulin Detemir (Levemir Insulin) 12 units QHS SC 10/01/19 21:00 10/02/19 08:32 DC 10/01/19 21:27 Insulin Detemir (Levemir Insulin) 18 units QAM [place] 10/01/19 09:00 10/02/19 08:32 DC Insulin Detemir (Levemir Insulin) 18 units QHS OK 10/02/19 21:00 10/03/19 08:18 DC 10/02/19 21:35 Insulin Detemir (Levemir Insulin) 23 units QAM OK 10/02/19 09:00 10/03/19 08:42 Insulin Detemir (Levemir Insulin) 23 units QHS OK 10/03/19 21:00 Insulin Human Lispro (HumaLOG INSULIN) SEE PROTOCOL TABLE AC OK 09/27/19 17:30 10/03/19 18:39 Insulin Human Lispro ([facility]UL[facility]) [facility] 21:00 09/28/19 21:15 Lactated Ringer's 1,000 ml @ 100 mls/hr Q10H IV 09/27/19 17:45 09/27/19 18:45 DC Lactated Ringer's 1,000 ml @ 100 mls/hr Q10H IV 10/02/19 19:30 10/02/19 20:30 DC Lactobacillus Acidophilus (Bacid) 1 ea BIDWM PO 10/02/19 18:00 10/03/19 18:39 Lisinopril (Prinivil) 5 mg DAILY PO 09/28/19 09:00 10/03/19 08:44 Meperidine HCl (Demerol) 12.5 mg Q5MP PRN IV SHIVERING 10/02/19 19:30 10/02/19 20:30 DC Metoclopramide HCl (REGLAN INJection) 10 mg Q6HP PRN IV NAUSEA OR VOMITING 10/02/19 19:30 10/02/19 20:30 DC Metoclopramide HCl (Reglan) 5 mg Q8H PO 10/01/19 14:00 10/03/19 06:46 Ondansetron HCl (ZOFRAN INJection) 4 mg Q4HP PRN IV NAUSEA OR VOMITING 09/27/19 17:45 09/27/19 18:45 DC Ondansetron HCl (ZOFRAN INJection) 4 mg Q4HP PRN IV NAUSEA OR VOMITING 10/02/19 19:30 10/02/19 20:30 DC Ondansetron HCl (ZOFRAN INJection) 4 mg Q6HP PRN IV NAUSEA OR VOMITING 09/28/19 14:00 10/01/19 05:06 Oxycodone HCl (Roxicodone, Oxyir) 10 mg Q6HP PRN PO SEVERE PAIN (PS 8-10) 09/27/19 13:30 10/01/19 18:29 DC 10/01/19 10:10 Oxycodone/ Acetaminophen (Percocet 5mg/ 325mg Tablet) 1 tab ASDIRECTED PRN PO PAIN LEVEL 1-4 09/27/19 17:45 09/27/19 18:45 DC Oxycodone/ Acetaminophen (Percocet 5mg/ 325mg Tablet) 1 tab ASDIRECTED PRN PO PAIN LEVEL 1-4 10/02/19 19:30 10/02/19 20:30 DC Pantoprazole Sodium (Protonix) 40 mg DAILY PO 09/28/19 09:00 10/03/19 08:42 Piperacillin Sod/ Tazobactam Sod 3.375 gm/Dextrose 50 ml @ 50 mls/hr Q6H IV 09/27/19 18:00 09/29/19 16:05 DC 09/29/19 11:59 Polyethylene Glycol (Miralax) 1 pkt DAILY PO 09/30/19 09:00 10/01/19 08:36 Ramelteon (Rozerem) 8 mg QHS PRN PO INSOMNIA 09/28/19 20:45 10/02/19 21:44 Senna/Docusate Sodium (Senokot S) 2 tab QHS PO 09/29/19 21:00 10/02/19 21:34 Silver Sulfadiazine (Silvadene 1%) To bilateral gr... TID TOP 09/29/19 16:00 10/03/19 15:00 Sodium Chloride 1,000 ml @ 100 mls/hr Q10H IV 09/27/19 13:30 09/30/19 13:57 DC 09/30/19 12:05 Tramadol HCl (Ultram) 50 mg Q8HP PRN PO MODERATE PAIN (PS 5-7) 10/01/19 18:30 10/04/19 18:30 10/03/19 07:56 Vancomycin HCl 500 mg/Dextrose 110 ml @ 110 mls/hr Q6H IV 09/29/19 22:00 09/30/19 11:20 DC 09/30/19 10:13 Vancomycin HCl 500 mg/Dextrose 110 ml @ 110 mls/hr Q6H IV 10/01/19 08:45 10/01/19 10:49 DC Vancomycin HCl 1000 mg/IV Miscellaneous Supplies 1 each/ Dextrose 270 ml @ 270 mls/hr Q6H IV 09/28/19 12:00 09/28/19 14:07 DC Vancomycin HCl 1000 mg/IV Miscellaneous Supplies 1 each/ Dextrose 270 ml @ 270 mls/hr Q6H IV 09/28/19 15:00 09/30/19 11:20 DC 09/30/19 07:55 Vancomycin HCl 1000 mg/IV Miscellaneous Supplies 1 each/ Dextrose 270 ml @ 270 mls/hr Q8H IV 09/27/19 20:00 09/28/19 11:49 DC 09/28/19 04:14 Allergies Coded Allergies: No Known Allergies (Unverified , 09/27/19) Jud Hamilton MD Oct 03, 2019 18:49
[2019-10-03] MEDS ORDERED: LEVEMIR (INSULIN DETEMIR) 1 UNITS/0.01ML SC SCH (21:00)
[2019-10-03] MEDS: SENOKOT S TAB PO SCH (21:33)
[2019-10-03] MEDS: RAMELTEON 8 MG TAB (ROZEREM) PO PRN (21:34)
[2019-10-03 22:00] VITALS: BP 131/82
[2019-10-03] MEDS: AMPICILLIN SOD/SULBACTAM SOD 3 GM in D5W MINI-BAG PLUS 100 ML IV SCH (22:42)
[2019-10-04] MEDS: AMPICILLIN SOD/SULBACTAM SOD 3 GM in D5W MINI-BAG PLUS 100 ML IV SCH ×4 (04:13→21:15)
[2019-10-04] MEDS: METOCLOPRAMIDE 5 MG TAB PO SCH ×3 (05:12→21:13)
[2019-10-04] MEDS: traMADol 50 MG TAB PO PRN ×2 (05:12→13:35)
[2019-10-04 05:52] LABS: BASO # 0.1 10^3/uL (0.0-0.2); EOS # 0.2 10^3/uL (0.0-0.5); EOS % 3.4 % (0.0-3.0); HEMATOCRIT 41.2 % (42.0-52.0); HEMOGLOBIN 13.9 g/dl (13.5-17.5); LYMPH # 2.1 10^3/uL (1.5-5.0); LYMPH % 29.7 % (24.0-44.0); MEAN CORPUSCULAR HEMOGLOBIN 28.8 pg (27.0-33.0); MEAN CORPUSCULAR HGB CONC 33.7 g/dl (32.0-36.5); MEAN CORPUSCULAR VOLUME 85.3 fl (80.0-96.0); MONO # 0.7 10^3/uL (0.0-0.8); MONO % 10.6 % (0.0-5.0); NEUTROPHILS # 3.8 10^3/uL (1.5-8.5); NEUTROPHILS % 54.6 % (36.0-66.0); PLATELET COUNT, AUTOMATED 266 10^3/uL (150-450); RED BLOOD COUNT 4.83 10^6/uL (4.30-6.10)
[2019-10-04 06:00] VITALS: BP 132/66
[2019-10-04 06:28] LABS: BLOOD UREA NITROGEN 20 MG/DL (7-18); C REACTIVE PROTEIN QUANTITATIV 1.73 MG/DL (0.00-0.30); CALCIUM LEVEL 8.5 MG/DL (8.5-10.1); CARBON DIOXIDE LEVEL 28 MEQ/L (21-32); CHLORIDE LEVEL 100 MEQ/L (98-107); CREATININE FOR GFR 1.01 MG/DL (0.70-1.30); GLOMERULAR FILTRATION RATE > 60.0 (>60); GLUCOSE, FASTING 337 MG/DL (70-100); MAGNESIUM LEVEL 1.8 MG/DL (1.8-2.4); POTASSIUM SERUM 4.3 MEQ/L (3.5-5.1); SODIUM LEVEL 136 MEQ/L (136-145)
--- NOTE | 2019-10-04 08:48 | CR ---
DATE OF CONSULTATION: 10/03/2019 I was asked to consult by Dr. Simon for evaluation of necrotizing fasciitis of left foot status post incision and drainage (I and D) on two occasions with currently an open wound. HISTORY OF PRESENT ILLNESS: Celso is a 44-year-old gentleman who has a history of insulin-dependent diabetes. He has not been on insulin for the past 2 years because of lack of insurance. He developed foot ulcers and came to the emergency room due to weakness, decreased oral intake and chills. His sugars were around 300. He is complaining of urinary frequency. The patient had an open wound in his left foot, was purulent. The patient had some nausea, vomiting, denied any hematemesis. He states his pain was around 9/10, burning in feeling. On admission a foot x-ray was suggestive of distal phalanx osteomyelitis or acute fracture and normal air density consistent with gas gangrene-producing organism. He was taken to the operating room twice by Dr. Simon. Wound culture was positive for a polymicrobial infection with group B Streptococcus and Staphylococcus aureus methicillin sensitive Staphylococcus aureus (MSSA), Streptococcus mitis, Prevotella and Fusobacterium. His blood cultures were negative. The patient has been on IV Unasyn with clindamycin and that was added on 10/02/2019. The patient is clinically much better and ready for discharge home. He was taken back for another debridement on 10/02/2019. Dr. Simon is very happy with clinical improvement of his wound. PAST MEDICAL HISTORY: Insulin-dependent diabetes on no medication insomnia. ALLERGIES: NO KNOWN DRUG ALLERGIES. MEDICATIONS: Initially he was on cefazolin 2 grams IV every 8 hours from 09/30/2019 to 10/01/2019. Then he was on Unasyn and eventually clindamycin was added. Probiotics one tablet by mouth twice a day, heparin 5000 units subcu twice a day, insulin sliding scale, Levemir 23 units subcu in the morning, Lipitor 80 mg by mouth daily, MiraLAX one packet by mouth daily, gabapentin 100 mg by mouth three times a day, lisinopril 5 mg daily, pantoprazole 40 mg daily, Reglan 5 mg by mouth every 8 hours, Rozerem 8 mg by mouth nightly, Senokot two tablets by mouth nightly, Silvadene to both feet twice a day, Unasyn 1.5 grams IV every 6 hours. PHYSICAL EXAMINATION: He is a healthy looking gentleman in no acute distress. Heart: Normal S1,S2. No murmurs, rubs or gallops. Lungs are clear. No wheezes or rhonchi. Abdomen: Soft, nontender. No visceromegaly. Extremities: No clubbing, cyanosis or edema. Left foot has an incision between the fourth and fifth toe about 8 cm anteriorly, 4 cm posteriorly. Right big toe has an ulcer measuring about 3 x 1 cm, clean with no purulence. No redness. LABS: White count 7.3, hemoglobin 14.3, hematocrit 41.5, platelets 274, 74% neutrophils, 17% lymphocytes, 7% monocytes. ESR on admission was 44. Sodium 133, potassium 4.5, chloride 98, bicarb 29, BUN 11, creatinine 0.8, glucose 307, calcium 8.8, magnesium 2.1, CRP 3.28 down from 24.7. Blood cultures two sets were no growth at09/27/2019. Wound culture was positive for MSSA group B Streptococcus and Staphylococcus aureus methicillin sensitive Staphylococcus aureus (MSSA), Streptococcus mitis, Prevotella and Fusobacterium on 09/27/2019 IMAGING STUDIES: 09/27/2019, CT abdomen and pelvis done for abdominal pain which showed nonspecific pararenal stranding. Bowel loops were within normal limits. Chest CT showed large, conglomerate calcified left hilar lymph nodes, benign old granulomas in the hilum and left lower lobe as well. Foot MRI shows the marrow edema at the 4th and 5th metatarsal bone mostly distally as well as marrow in the first phalanx concerning for osteomyelitis. Moderate effusion in the 4th and 5th metatarsophalangeal joints with a small effusion at the first MTP. Abnormal morphology of the proximal 4th and 5th met consistent with old fracture. Patchy edema suggestive of myositis, tenosynovitis. Vascular ultrasound was no deep venous thrombosis (DVT). IMPRESSION: This a 44-year-old gentleman with insulin-dependent diabetes with HbA1c of 10 on no medication for the past 2 years admitted with a diabetic foot ulcer with polymicrobial infection and necrotizing fasciitis status post I and D. The patient is doing much better. He has received IV Unasyn, clindamycin which covers all the pathogens he has isolated from the abscess. He is clinically doing much better and is ready for discharge home. He is afebrile. His white count is normal, CRP has markedly improved. PLAN: 1. Discontinue IV clindamycin. There is no need for double coverage. At this point he is clinically stable. 2. Increase Unasyn to 3 grams IV every 6 hours. 3. I will follow up on his wound with Dr. Simon tomorrow and if improved, will discuss whether he needs, IV or oral antibiotic at this point. Per Dr. Simon, the bones were pretty strong without any evidence of osteomyelitis. There might be periostitis but I am not sure there is a clinical indication for oral antibiotic but will treat him with at least 6 weeks of oral antibiotics and not necessarily IV. Plan further decision will be done tomorrow but I am leaning towards prolonged oral antibiotics.
[2019-10-04] MEDS: MIRALAX *UNIT DOSE* 17GM PACKET PO SCH (09:00)
[2019-10-04] MEDS: GABAPENTIN 100 MG CAP PO SCH ×3 (09:01→21:13)
[2019-10-04] MEDS: LACTOBACILLUS ACIDOPHILUS CAP (BACID) PO SCH ×2 (09:01→18:00)
[2019-10-04] MEDS: PANTOPRAZOLE 40MG TAB (PROTONIX) PO SCH (09:01)
[2019-10-04] MEDS: ATORVASTATIN 20 MG TAB PO SCH (09:01)
[2019-10-04] MEDS: lisinopriL 5 MG TAB PO SCH (09:03)
[2019-10-04] MEDS: LEVEMIR (INSULIN DETEMIR) 1 UNITS/0.01ML SC SCH (09:04)
[2019-10-04] MEDS: HEPARIN SOD (PORCINE) 5000UNITS/ML 1ML VIAL/SYRINGE SQ SCH ×2 (09:04→21:16)
[2019-10-04] MEDS: HumaLOG INSULIN (NovoLOG) PER UNIT SC SCH ×4 (09:04→21:14)
[2019-10-04] MEDS: SILVER SULFADIAZINE 1% CR 50 GM JAR TOP SCH ×3 (10:40→21:15)
[2019-10-04 14:00] VITALS: BP 133/81
--- NOTE | 2019-10-04 14:24 | REP ---
REASON: Ulcers, infection, osteomyelitis. Only AP and lateral views were obtained. There are no priors for comparison. There is lysis of the head of the 3rd metatarsal along with rarefaction of the diaphysis. There is rarefaction of the diaphysis of the 5th metatarsal with some lysis of the metatarsal head. Decreased bony mineralization is also suggested involving the proximal phalanx of the 5th digit and the base of the proximal phalanx of the 4th digit. These are seen in a limited fashion on this limited two-view exam. IMPRESSION: Evidence of osteomyelitis, as described above. Electronically Signed by Yong Retana DO 10/04/2019 05:01 P
--- NOTE | 2019-10-04 17:34 | IPN ---
DATE: 10/04/2019 Celso is doing well. He denies any fever or chills. No nausea, vomiting, or diarrhea. He would like to go home. He has been afebrile since September 26 was his last fever. No nausea, vomiting, or diarrhea. No cough or shortness of breath. PHYSICAL EXAMINATION: Temperature is 97, pulse 80, respirations 20, blood pressure 132/66, oxygen saturation 96% on room air. HEART: Normal S1, S2. No murmurs, rubs, or gallops. LUNGS: Clear. No wheezes, rales, or rhonchi. ABDOMEN: Soft, nontender. No hepatosplenomegaly. EXTREMITIES: No edema. Left foot has an open wound measuring about 8 cm anteriorly between the 4th and 5th metatarsal with tendon exposed. Minimal surrounding erythema. No purulent discharge. There is moderate serosanguineous discharge on the dressing. On the dorsal aspect of the foot there is an incision measuring about 4 cm with no purulence. No redness. Minimal tenderness at the base of the wound. LABORATORY DATA: White count of 7, hemoglobin 13.9, hematocrit 41.2, platelets 266, 55% neutrophils, 29% lymphocytes, 10% monocytes. Sodium 136, potassium 4.3, chloride 100, bicarbonate 28, BUN 20, creatinine 1, glucose 337, calcium 8.5, magnesium 1.8. CRP 1.73. X-ray of the left foot shows proximal phalanx of the 5th digit and 4th digit with decreased bone mineralization, suggestive of osteomyelitis. IMPRESSION: Acute osteomyelitis of the left foot involving 4th and 5th toes with a polymicrobial infection with culture positive for group streptococcus, methicillin-sensitive Staphylococcus aureus (MSSA), Streptococcus mitis, Prevotella, and Fusobacterium. Group B streptococcus is resistant to clindamycin. MEDICATIONS: Intravenous (IV) Unasyn 3 grams every 6 hours. PLAN: Discontinue IV Unsayn. Switch to Augmentin 875 mg by mouth twice a day. Please supply to patient with a 30-day prescription, #60 tablets. He will need to followup with Dr. Simon and Dr. Kulkarni. I will see him in my office in a couple weeks. The patient was advised good monitoring of his sugars and tight control as well as leg elevation and offloading.
[2019-10-04] MEDS ORDERED: LEVEMIR (INSULIN DETEMIR) 1 UNITS/0.01ML SC SCH (21:00)
[2019-10-04] MEDS: SENOKOT S TAB PO SCH (21:13)
[2019-10-04] MEDS: RAMELTEON 8 MG TAB (ROZEREM) PO PRN (21:13)
[2019-10-04 22:00] VITALS: BP 142/89
--- NOTE | 2019-10-04 22:46 | IPNPDOC ---
Date Seen The patient was seen on 10/04/19. Progress Note SUBJECTIVE Patient is currently post-op day 2 of excisional debridement of necrotic skin, muscle, tendon, ligament, left foot. BS [id number], insulin further increased. Repeat XR of left foot shows osteomyelitis. Denies chest pain, n/v, fevers, chills. OBJECTIVE: VITAL SIGNS: Please see below PHYSICAL EXAMINATION: GENERAL: Patient is awake, alert and conversant, comfortable HENT: Neck is supple with no adenopathy or thyromegaly, oral mucosa is moist. CV: Regular rate and rhythm with a normal S1 and S2 and no murmur. RESP: Clear to auscultation, no rhonchi, rales, wheezes or cough. ABD: Soft, nontender, nondistended, notable central obesity. EXT: Left foot wound is open, area between the 4th and 5th metatarsal with tendon open. Mild erythema around this area, serosanguinous draingage. On the dorsum of the foot there is a 3 cm incision, mildly tender. NEURO: No focal neuromotor or sensory deficits. LABORATORY: Please see below IMAGING: XR of left foot: Lysis of the head of the 3rd metatarsal along with rarefaction of the diaphysis. There is rarefaction of the diaphysis of the 5th metatarsal with some lysis of the metatarsal head. Decreased bony mineralization is also suggested involving the proximal phalanx of the 5th digit and the base of the proximal phalanx of the 4th digit. These are seen in a limited fashion on this limited two-view exam. Evidence of osteomyelitis MRI left foot: 1. Marrow edema is identified is identified involving the 4th and 5th metatarsal bones, most significant distally. Marrow edema is identified involving the 4th and 5th digits as well as the distal 1st phalanx. These findings are concerning for osteomyelitis in the appropriate clinical setting. 2. Soft tissue swelling of the foot identified. There are ulcerations involving the plantar and dorsal aspects of the lateral forefoot. 3. Multiple foci of hypointense gas are identified within the soft tissues of the lateral forefoot, with extension of gas into the dorsal aspect of the 4th digit. The lateral forefoot is hypointense on postcontrast images as well. These findings are concerning for necrotizing infection or abscess. 4. Mild marrow edema is identified involving the cuboid bone and anterior aspect of the calcaneus. Additional osteomyelitis cannot be excluded. 5. Mild cystic/edematous change identified involving the medial talar dome. This is likely secondary to arthropathy or due to osteochondral injury. Evaluation of the hindfoot is limited on this study. 6. Moderate effusions identified at the 4th and 5th MTP joints, with a small effusion at the 1st MTP joint. 7. Abnormal morphology of the proximal 4th and 5th metatarsal bones, consistent with old fractures. 8. Patchy muscle edema, suggestive of myositis or diabetic myopathy. 9. Tenosynovitis of the flexor hallucis tendon and posterior tibialis tendon. Mild tenosynovitis of the peroneal tendons. MICROBIOLOGY: Left foot anaerobic cx: PREVOTELLA BIVIA, FUSOBACTERIUM VARIUM Left foot aerobic cx: Streptococcus agalactiae, staph aureus and streptococcus mitis, sensitivities listed Blood cultures x 2 sets: NG at 72 hrs ASSESSMENT: 44 y/o M treated for left foot ulcer/abscess s/p I&D, osteomyelitis 4th, 5th digits. PLAN: 1. Left foot ulcer/abscess, osteomyelitis 4th, 5th digits post-op day 2 for excisional debridement of necrotic skin, muscle, tendon, ligament of left foot. -Repeat XR of left foot above -WBC wnl, afebrile. -Micro thus far above above, polymicrobial. -Post-op day #7 from intial I&D to the dorsum of diabetic ulcer/abscess of left foot -Dr. Kulkarni (infectious disease) recommending d/c unasyn, start PO Augmentin 875 PO BID x 30 days -C/w daily CBC, wound care per podiatry but hopeful for discharge in next 24 hours. -Will need wound care per podiatry, PT/OT 2. DM type II, uncontrolled. -HbA1c 10.8, BS still 229-337 -Increased levemir to 30 U BID -C/w ISS, AC/HS blood sugar checks, consistent carb diet. -Diabetic education ordered, as patient will go home with insulin 3. Nausea, chronic likely gastroparesis 2/2 to uncontrolled DM -Chronic, improved with reglan -C/w reglan -Will need gastric emptying testing as o/p 4. Peripheral neuropathy 2/2 to uncontrolled DM - Gabapentin TID 5. HLD -statin 6. GERD -PPI 7. DVT px -Heparin DISPOSITION: Currently inpatient status. Discharge plan yet undetermined but may involve IV antibiotics. Patient will need PT/OT evaluation prior to d/c. VS, I&O, [facility]H, [facility] Vital Signs/I&O Vital Signs Date Time Temp Pulse Resp B/P (MAP) Pulse Ox O2 Delivery O2 Flow Rate FiO2 10/04/19 14:05 18 10/04/19 14:00 98.0 88 133/81 (98) 99 10/03/19 18:48 Room Air 10/02/19 19:30 2 I&O- Last 24 Hours up to 6 AM 10/04/19 06:00 Intake Total 2690 ml Output Total 0 ml Balance 2690 ml Laboratory Data 24H LABS Laboratory Tests 2 10/04/19 05:40: Immature Granulocyte % (Auto) 0.7, Neutrophils (%) (Auto) 54.6, Lymphocytes (%) (Auto) 29.7, Monocytes (%) (Auto) 10.6H, Eosinophils (%) (Auto) 3.4H, Basophils (%) (Auto) 1.0, Neutrophils # (Auto) 3.8, Lymphocytes # (Auto) 2.1, Monocytes # (Auto) 0.7, Eosinophils # (Auto) 0.2, Basophils # (Auto) 0.1, Nucleated Red Blood Cells % (auto) 0.0, Anion Gap 8, Glomerular Filtration Rate > 60.0, Calcium Level 8.5, Magnesium Level 1.8, C-Reactive Protein, Quantitative 1.73H 10/04/19 12:10: Bedside Glucose (Misc Panel) 278H 10/04/19 16:20: Bedside Glucose (Misc Panel) 229H CBC/BMP Laboratory Tests 10/04/19 05:40 Microbiology Microbiology 09/27/19 Gram Stain - Final, Complete 09/27/19 Abscess Culture - Final, Complete Strep Agalactiae Group B Staphylococcus Aureus Streptococcus Mitis 09/27/19 Anaerobic Culture - Final, Complete Prevotella Bivia Fusobacterium Varium 09/27/19 Blood Culture - Final, Complete NO GROWTH AFTER 5 DAYS 09/27/19 Blood Culture - Final, Complete NO GROWTH AFTER 5 DAYS Current Medications Current Medications Medications (Trade) Dose Ordered Sig/Saqib Route PRN Reason Start Time Stop Time Status Last Admin Dose Admin Acetaminophen (Tylenol Tab) 650 mg Q4H PRN PO PAIN OR FEVER 09/27/19 13:30 09/27/19 21:49 Ampicillin Sodium/ Sulbactam Sodium 1.5 gm/Dextrose 50 ml @ 100 mls/hr Q6H IV 10/01/19 19:00 10/03/19 22:03 DC 10/03/19 18:39 Ampicillin Sodium/ Sulbactam Sodium 3 gm/Dextrose 100 ml @ 200 mls/hr Q6H IV 10/03/19 22:00 10/04/19 21:15 Atorvastatin Calcium (Lipitor) 80 mg DAILY PO 09/28/19 09:00 10/04/19 09:01 Cefazolin Sodium/ Dextrose 2 gm/IV Miscellaneous Supplies 50 ml @ 75 mls/hr Q8H IV 09/30/19 12:00 10/01/19 08:41 DC 10/01/19 04:00 Cefazolin Sodium/ Dextrose 2 gm/IV Miscellaneous Supplies 50 ml @ 75 mls/hr Q8H IV 10/01/19 12:00 10/01/19 18:29 DC 10/01/19 11:48 Clindamycin Phosphate 600 mg/ IV Miscellaneous Supplies 50 ml @ 100 mls/hr Q6H IV 10/02/19 09:00 10/03/19 16:55 DC 10/03/19 15:06 Dextrose (Dextrose 50%) 25 ml ASDIRECTED PRN IV SEE LABEL COMMENTS 09/27/19 13:30 Fentanyl Citrate (Sublimaze) 25 mcg Q5MP PRN IV PAIN LEVEL 5-10 09/27/19 17:45 09/27/19 18:45 DC Fentanyl Citrate (Sublimaze) 25 mcg Q5MP PRN IV PAIN LEVEL 5-10 10/02/19 19:30 10/02/19 20:30 DC Gabapentin (Neurontin) 100 mg TID PO 09/27/19 16:00 10/04/19 21:13 Glucagon (Glucagon) 1 mg ASDIRECTED PRN SC SEE LABEL COMMENTS 09/27/19 13:30 Glucose (Glucose) 16 GM ASDIRECTED PRN PO SEE LABEL COMMENTS 09/27/19 13:30 Heparin Sodium (Porcine) (Heparin) 5,000 units Q12H SQ 09/29/19 21:00 10/04/19 21:16 Home Med (Med Rec Complete!) ASDIRECTED XX 09/27/19 12:45 09/27/19 12:40 DC Insulin Detemir (Levemir Insulin) 5 units BID FL 09/27/19 21:00 09/29/19 07:35 DC 09/28/19 21:14 Insulin Detemir (Levemir Insulin) 12 units BID FL 09/29/19 09:00 10/01/19 08:37 DC 09/30/19 22:22 Insulin Detemir (Levemir Insulin) 12 units QHS FL 10/01/19 21:00 10/02/19 08:32 DC 10/01/19 21:27 Insulin Detemir (Levemir Insulin) 18 units QAM FL 10/01/19 09:00 10/02/19 08:32 DC Insulin Detemir (Levemir Insulin) 18 units QHS FL 10/02/19 21:00 10/03/19 08:18 DC 10/02/19 21:35 Insulin Detemir (Levemir Insulin) 23 units QAM FL 10/02/19 09:00 10/04/19 09:28 DC 10/04/19 09:04 Insulin Detemir (Levemir Insulin) 23 units QHS FL 10/03/19 21:00 10/04/19 09:28 DC 10/03/19 21:33 Insulin Detemir (Levemir Insulin) 30 units QAM FL 10/05/19 09:00 Insulin Detemir (Levemir Insulin) 30 units QHS FL 10/04/19 21:00 10/04/19 21:15 Insulin Human Lispro (HumaLOG INSULIN) SEE PROTOCOL TABLE AC FL 09/27/19 17:30 10/04/19 18:00 Insulin Human Lispro (HumaLOG INSULIN) SEE PROTOCOL TABLE QHS FL 09/27/19 21:00 10/04/19 21:14 Lactated Ringer's 1,000 ml @ 100 mls/hr Q10H IV 09/27/19 17:45 09/27/19 18:45 DC Lactated Ringer's 1,000 ml @ 100 mls/hr Q10H IV 10/02/19 19:30 10/02/19 20:30 DC Lactobacillus Acidophilus (Bacid) 1 ea BIDWM PO 10/02/19 18:00 10/04/19 18:00 Lisinopril (Prinivil) 5 mg DAILY PO 7/11/20 09:00 10/04/19 09:03 Meperidine HCl (Demerol) 12.5 mg Q5MP PRN IV SHIVERING 10/02/19 19:30 10/02/19 20:30 DC Metoclopramide HCl (REGLAN INJection) 10 mg Q6HP PRN IV NAUSEA OR VOMITING 10/02/19 19:30 10/02/19 20:30 DC Metoclopramide HCl (Reglan) 5 mg Q8H PO 10/01/19 14:00 10/04/19 21:13 Ondansetron HCl (ZOFRAN INJection) 4 mg Q4HP PRN IV NAUSEA OR VOMITING 09/27/19 17:45 09/27/19 18:45 DC Ondansetron HCl (ZOFRAN INJection) 4 mg Q4HP PRN IV NAUSEA OR VOMITING 10/02/19 19:30 10/02/19 20:30 DC Ondansetron HCl (ZOFRAN INJection) 4 mg Q6HP PRN IV NAUSEA OR VOMITING 09/28/19 14:00 10/01/19 05:06 Oxycodone HCl (Roxicodone, Oxyir) 10 mg Q6HP PRN PO SEVERE PAIN (PS 8-10) 09/27/19 13:30 10/01/19 18:29 DC 10/01/19 10:10 Oxycodone/ Acetaminophen (Percocet 5mg/ 325mg Tablet) 1 tab ASDIRECTED PRN PO PAIN LEVEL 1-4 09/27/19 17:45 09/27/19 18:45 DC Oxycodone/ Acetaminophen (Percocet 5mg/ 325mg Tablet) 1 tab ASDIRECTED PRN PO PAIN LEVEL 1-4 10/02/19 19:30 10/02/19 20:30 DC Pantoprazole Sodium (Protonix) 40 mg DAILY PO 09/28/19 09:00 10/04/19 09:01 Piperacillin Sod/ Tazobactam Sod 3.375 gm/Dextrose 50 ml @ 50 mls/hr Q6H IV 09/27/19 18:00 09/29/19 16:05 DC 09/29/19 11:59 Polyethylene Glycol (Miralax) 1 pkt DAILY PO 09/30/19 09:00 10/01/19 08:36 Ramelteon (Rozerem) 8 mg QHS PRN PO INSOMNIA 09/28/19 20:45 10/04/19 21:13 Senna/Docusate Sodium (Senokot S) 2 tab QHS PO 09/29/19 21:00 10/04/19 21:13 Silver Sulfadiazine (Silvadene 1%) To bilateral gr... TID TOP 09/29/19 16:00 10/04/19 21:15 Sodium Chloride 1,000 ml @ 100 mls/hr Q10H IV 09/27/19 13:30 09/30/19 13:57 DC 09/30/19 12:05 Tramadol HCl (Ultram) 50 mg Q8HP PRN PO MODERATE PAIN (PS 5-7) 10/01/19 18:30 10/04/19 18:30 DC 10/04/19 13:35 Vancomycin HCl 500 mg/Dextrose 110 ml @ 110 mls/hr Q6H IV 09/29/19 22:00 09/30/19 11:20 DC 09/30/19 10:13 Vancomycin HCl 500 mg/Dextrose 110 ml @ 110 mls/hr Q6H IV 10/01/19 08:45 10/01/19 10:49 DC Vancomycin HCl 1000 mg/IV Miscellaneous Supplies 1 each/ Dextrose 270 ml @ 270 mls/hr Q6H IV 09/28/19 12:00 09/28/19 14:07 DC Vancomycin HCl 1000 mg/IV Miscellaneous Supplies 1 each/ Dextrose 270 ml @ 270 mls/hr Q6H IV 09/28/19 15:00 09/30/19 11:20 DC 09/30/19 07:55 Vancomycin HCl 1000 mg/IV Miscellaneous Supplies 1 each/ Dextrose 270 ml @ 270 mls/hr Q8H IV 09/27/19 20:00 09/28/19 11:49 DC 09/28/19 04:14 Allergies Coded Allergies: No Known Allergies (Unverified , 09/27/19) Jud Hamilton MD Oct 04, 2019 22:46
[2019-10-04] MEDS ORDERED: ACET1TAB55 PO (23:31)
[2019-10-04] MEDS ORDERED: SENN-52 PO (23:31)
[2019-10-04] MEDS ORDERED: METO5TAB2 PO (23:31)
[2019-10-04] MEDS ORDERED: RISATAB3 PO (23:31)
[2019-10-04] MEDS ORDERED: GABA-1171 PO (23:31)
[2019-10-04] MEDS ORDERED: PANT40TA29 PO (23:31)
[2019-10-04] MEDS ORDERED: LANTINJ4 SC (23:31)
[2019-10-04] MEDS ORDERED: SILV50CR TOP (23:31)
[2019-10-04] MEDS ORDERED: AUGM875T28 PO (23:32)
[2019-10-05] MEDS: AMPICILLIN SOD/SULBACTAM SOD 3 GM in D5W MINI-BAG PLUS 100 ML IV SCH (04:57)
[2019-10-05] MEDS: METOCLOPRAMIDE 5 MG TAB PO SCH (05:01)
[2019-10-05] MEDS ORDERED: traMADol 50 MG TAB PO ONE (05:45)
[2019-10-05 06:00] VITALS: BP 135/82
[2019-10-05 07:01] LABS: HEMATOCRIT 41.6 % (42.0-52.0); HEMOGLOBIN 14.3 g/dl (13.5-17.5); MEAN CORPUSCULAR HEMOGLOBIN 29.2 pg (27.0-33.0); MEAN CORPUSCULAR HGB CONC 34.4 g/dl (32.0-36.5); MEAN CORPUSCULAR VOLUME 85.1 fl (80.0-96.0); PLATELET COUNT, AUTOMATED 271 10^3/uL (150-450); RED BLOOD COUNT 4.89 10^6/uL (4.30-6.10); WHITE BLOOD COUNT 6.7 10^3/uL (4.0-10.0)
[2019-10-05 07:26] LABS: ALBUMIN 2.9 GM/DL (3.2-5.2); ALT/SGPT 45 U/L (12-78); BILIRUBIN,TOTAL 0.9 MG/DL (0.2-1.0); BLOOD UREA NITROGEN 17 MG/DL (7-18); CARBON DIOXIDE LEVEL 29 MEQ/L (21-32); CHLORIDE LEVEL 99 MEQ/L (98-107); CREATININE FOR GFR 0.86 MG/DL (0.70-1.30); GLOMERULAR FILTRATION RATE > 60.0 (>60); GLUCOSE, FASTING 318 MG/DL (70-100); POTASSIUM SERUM 4.2 MEQ/L (3.5-5.1); SODIUM LEVEL 132 MEQ/L (136-145); TOTAL PROTEIN 7.6 GM/DL (6.4-8.2)
[2019-10-05] MEDS: LACTOBACILLUS ACIDOPHILUS CAP (BACID) PO SCH (08:06)
[2019-10-05] MEDS: HumaLOG INSULIN (NovoLOG) PER UNIT SC SCH (08:06)
[2019-10-05 08:30] VITALS: BP 101/70
[2019-10-05 09:00] VITALS: BP 101/70
[2019-10-05] MEDS ORDERED: LEVEMIR (INSULIN DETEMIR) 1 UNITS/0.01ML SC SCH (09:00)
[2019-10-05] MEDS: MIRALAX *UNIT DOSE* 17GM PACKET PO SCH (09:00)
[2019-10-05] MEDS: lisinopriL 5 MG TAB PO SCH (09:00)
[2019-10-05] MEDS: GABAPENTIN 100 MG CAP PO SCH (09:20)
[2019-10-05] MEDS: ATORVASTATIN 20 MG TAB PO SCH (09:20)
[2019-10-05] MEDS: HEPARIN SOD (PORCINE) 5000UNITS/ML 1ML VIAL/SYRINGE SQ SCH (09:21)
[2019-10-05] MEDS: PANTOPRAZOLE 40MG TAB (PROTONIX) PO SCH (09:21)
[2019-10-05] MEDS: SILVER SULFADIAZINE 1% CR 50 GM JAR TOP SCH (09:22)
[2019-10-05] MEDS ORDERED: TRAM50TA2 PO (10:45)
--- NOTE | 2019-10-05 19:22 | DS.PDOC ---
Discharge Summary General Date of Admission Sep 27, 2019 at 13:17 Date of Discharge 10/05/19 Attending Physician: Jud Hamilton MD Discharge Summary HISTORY OF PRESENT ILLNESS: Patient is a 44-year-old male who has not seen a physician in over 2 years with a past medical history of diabetes mellitus type 2 and foot ulcers, noncompliant with medications, who presented to the emergency room with weakness and decreased oral intake over the last 3 days. Patient reports that on Monday afternoon had come home and was in bed the entire time since that point. He reports feeling weak with decreased oral intake has not expense any fevers but did report chills while at home reported. His sugars were in the 300s. Has reported increased urinary frequency. Patient denies any chest pain, shortness of breath or palpitations. He did experience nausea and vomiting this morning. Denied any blood in his vomitus. Did report associated epigastric pain that reports has been ongoing for several months. Patient reports that the pain fluctuates between -11/27, reported as a burning without any alleviating or aggravating factors. Patient denies any constipation or diarrhea. Denies any urinary discomfort. Patient is unsure of any changes in his weight, but did report a decrease in his appetite over last 3 days. HOSPITAL COURSE: Patient was treated this hospitalization for left foot ulcer/abscess, osteomyelitis 4th, 5th digits. He had 09/26 patient had intial I&D to the dorsum of diabetic ulcer/abscess of left foot. Left foot anaerobic cx grew: PREVOTELLA BIVIA, FUSOBACTERIUM VARIUM. Left foot aerobic cx grew: Streptococcus agalactiae, staph aureus and streptococcus mitis, sensitivities listed. Blood cultures x 2 sets: NG at 72 hrs. Patient had excisional debridement of necrotic skin, muscle, tendon, ligament of left foot done on 10/01 and repeat XR prior to this was concerned for osteomyelitis. Dr. Kulkarni with infectious disease was consulted, recommended Unasyn IV for several days, later switched to augmentin 875 mg PO BID x 30 days on discharge. Patient's blood sugar and DM type II was uncontrolled, HbA1c 10.8. He was started on levemir and over time increased to 30 U BID. Diabetic education ordered, as patientwas going home with insulin. His chronic nausea likely 2/2 to gastroparesis and will need o/p gastric emptying testing. D/debra on 10/05/19 with reglan. Peripheral neuropathy is chronic and worsened, on gabapentin. Discharged on 10/05/19 with f/u with PCP, Dr. Simon and Dr. Kulkarni's office to follow infection. He denied increased pain, n/v/d, fe vers, chills, swelling or shortness of breath at discharge. PMH: -Ium-powdmpg-zoqoeaegd diabetes mellitus type 2 -Foot ulcers SURGICAL HX: -No prior surgeries FH: - Patient reports that his mother had a history of arthritis SOCIAL HX: - Denies the use of tobacco; patient reports that he occasionally drinks alcohol. Last use was Monday with 6 beers; patient with that he smokes marijuana - Denies recent travel or sick contacts - Lives with girlfriend - Occupation; currently unemployed ALLERGIES: Please see below. DISCHARGE MEDICATIONS: Please see below. PHYSICAL EXAMINATION: GENERAL: Patient is awake, alert and conversant, comfortable HENT: Neck is supple with no adenopathy or thyromegaly, oral mucosa is moist. CV: Regular rate and rhythm with a normal S1 and S2 and no murmur. RESP: Clear to auscultation, no rhonchi, rales, wheezes or cough. ABD: Soft, nontender, nondistended, notable central obesity. EXT: Left foot wound is open, area between the 4th and 5th metatarsal with tendon open. Mild erythema around this area, serosanguinous draingage. On the dorsum of the foot there is a 3 cm incision, mildly tender. NEURO: No focal neuromotor or sensory deficits. LABORATORY: Please see below IMAGING: XR of left foot: Lysis of the head of the 3rd metatarsal along with rarefaction of the diaphysis. There is rarefaction of the diaphysis of the 5th metatarsal with some lysis of the metatarsal head. Decreased bony mineralization is also suggested involving the proximal phalanx of the 5th digit and the base of the proximal phalanx of the 4th digit. These are seen in a limited fashion on this limited two-view exam. Evidence of osteomyelitis MRI left foot: 1. Marrow edema is identified is identified involving the 4th and 5th metatarsal bones, most significant distally. Marrow edema is identified involving the 4th and 5th digits as well as the distal 1st phalanx. These findings are concerning for osteomyelitis in the appropriate clinical setting. 2. Soft tissue swelling of the foot identified. There are ulcerations involving the plantar and dorsal aspects of the lateral forefoot. 3. Multiple foci of hypointense gas are identified within the soft tissues of the lateral forefoot, with extension of gas into the dorsal aspect of the 4th digit. The lateral forefoot is hypointense on postcontrast images as well. These findings are concerning for necrotizing infection or abscess. 4. Mild marrow edema is identified involving the cuboid bone and anterior aspect of the calcaneus. Additional osteomyelitis cannot be excluded. 5. Mild cystic/edematous change identified involving the medial talar dome. This is likely secondary to arthropathy or due to osteochondral injury. Evaluation of the hindfoot is limited on this study. 6. Moderate effusions identified at the 4th and 5th MTP joints, with a small effusion at the 1st MTP joint. 7. Abnormal morphology of the proximal 4th and 5th metatarsal bones, consistent with old fractures. 8. Patchy muscle edema, suggestive of myositis or diabetic myopathy. 9. Tenosynovitis of the flexor hallucis tendon and posterior tibialis tendon. Mild tenosynovitis of the peroneal tendons. MICROBIOLOGY: Left foot anaerobic cx: PREVOTELLA BIVIA, FUSOBACTERIUM VARIUM Left foot aerobic cx: Streptococcus agalactiae, staph aureus and streptococcus mitis, sensitivities listed Blood cultures x 2 sets: NG at 72 hrs ASSESSMENT: 44 y/o M treated for left foot ulcer/abscess s/p I&D, osteomyelitis 4th, 5th digits. PLAN: 1. Left foot ulcer/abscess, osteomyelitis 4th, 5th digits post-op day 3 for excisional debridement of necrotic skin, muscle, tendon, ligament of left foot. -Repeat XR of left foot above -WBC wnl, afebrile. -Micro thus far above above, polymicrobial. -Post-op day #8 from intial I&D to the dorsum of diabetic ulcer/abscess of left foot -Dr. Kulkarni PO Augmentin 875 PO BID x 30 days -C/w wound care per podiatry -F/u with ID and podiatry as o/p 2. DM type II, uncontrolled. -HbA1c 10.8, BS uncontrolled this hospital stay with active infection -D/debra with levemir 36 U BID, new glucometer, lancets, test strips, alcohol pads, pen needles. -Diabetic education ordered, as patient will go home with insulin 3. Nausea, chronic likely gastroparesis 2/2 to uncontrolled DM -Chronic, improved with reglan -C/w reglan PO after discharge -Will need gastric emptying testing as o/p 4. Peripheral neuropathy 2/2 to uncontrolled DM - Gabapentin TID 5. HLD -statin 6. GERD -PPI DISPOSITION: Discharge home with f/u with new PCP appt, podiatry and ID. TIME SPENT ON DISCHARGE: Greater than 30 minutes. Vital Signs/I&Os Vital Signs Date Time Temp Pulse Resp B/P (MAP) Pulse Ox O2 Delivery O2 Flow Rate FiO2 10/05/19 09:00 101/70 10/05/19 08:30 98.1 80 18 96 Room Air 10/02/19 19:30 2 I&O- Last 24 Hours up to 6 AM 10/05/19 06:00 Intake Total 2950 ml Output Total 800 ml Balance 2150 ml Laboratory Data Labs 24H Laboratory Tests 2 10/04/19 20:15: Bedside Glucose (Misc Panel) 267H 10/05/19 06:42: Nucleated Red Blood Cells % (auto) 0.0, Anion Gap 4L, Glomerular Filtration Rate > 60.0, Calcium Level 9.0, Total Bilirubin 0.9, Aspartate Amino Transf (AST/SGOT) 27, Alanine Aminotransferase (ALT/SGPT) 45, Alkaline Phosphatase 87, Total Protein 7.6, Albumin 2.9L, Albumin/Globulin Ratio 0.6 CBC/BMP Laboratory Tests 10/05/19 06:42 FSBS Laboratory Tests Test 10/04/19 20:15 Range/Units Bedside Glucose (Misc Panel) 267 70-105 MG/DL Microbiology Microbiology 09/27/19 Gram Stain - Final, Complete 09/27/19 Abscess Culture - Final, Complete Strep Agalactiae Group B Staphylococcus Aureus Streptococcus Mitis 09/27/19 Anaerobic Culture - Final, Complete Prevotella Bivia Fusobacterium Varium 09/27/19 Blood Culture - Final, Complete NO GROWTH AFTER 5 DAYS 09/27/19 Blood Culture - Final, Complete NO GROWTH AFTER 5 DAYS Discharge Medications Scheduled Amoxicillin/Potassium Clav (Augmentin 875-125 Tablet) 1 Each Tablet, 1 TAB PO BID Gabapentin (Gabapentin) 100 Mg Capsule, 100 MG PO TID Insulin Glargine,Hum.rec.anlog (Lantus Solostar) 100 Unit/1 Ml Insuln.pen, 36 UNIT SC BID L.acidoph/L.bulg/B.bif/S.therm (Jessica-Bid Caplet) 1 Each Tablet, 1 EA PO BIDWM Melatonin (Melatonin) 10 Mg Tablet, 10 MG PO QHS, (Reported) Metoclopramide HCl (Metoclopramide HCl) 5 Mg Tablet, 5 MG PO Q8H Pantoprazole Sodium (Pantoprazole Sodium) 40 Mg Tablet.dr, 40 MG PO DAILY Sennosides/Docusate Sodium (Senna Plus Tablet) 1 Each Tablet, 2 TAB PO QHS Silver Sulfadiazine (Ssd) 50 Gm Cream..g., 50 GM TOP TID Scheduled PRN Acetaminophen (Acetaminophen) 325 Mg Tablet, 650 MG PO Q6H PRN for PAIN OR FEVER Tramadol HCl (Tramadol HCl) 50 Mg Tablet, 1 TAB PO Q6HP PRN for pain Allergies Coded Allergies: No Known Allergies (Unverified , 09/27/19) Jud Hamilton MD Oct 05, 2019 19:22
--- NOTE | 2019-10-07 23:51 | RO ---
DATE OF PROCEDURE: 09/27/2019 PREPROCEDURE DIAGNOSIS: Abscess, possible osteomyelitis plantar and dorsal central space left foot. POSTPROCEDURE DIAGNOSIS: Central space infection dorsally and plantarly. PROCEDURE: Incision and drainage of central and plantar infection. SURGEON: Dr. Steven Simon DPM [employer] MANAGER: None. ANESTHESIA: Local monitored anesthesia care (MAC). IRRIGATION: Dilute gentamicin solution, 3 liter low pressure pulse lavage system. DRAINS UTILIZED: Half-inch Iodoform gauze. DESCRIPTION OF PROCEDURE: On 09/27/2019, this 44-year-old male was taken from his hospital room to the operating room and placed on the operating table in the supine position. Following the induction of IV sedation and local and regional anesthesia, attention was directed to the plantar surface of the left foot. Evaluation of the left foot revealed an ulceration on the plantar surface of the foot measuring approximately 7 mm x 7 mm, extended down to the dorsal surface of the foot. An incision was made on the plantar surface of the foot measuring 4 cm, and the incision was traced dorsally and an incision was made and then followed, ending up with an 8 cm incision on the dorsal aspect of the foot, and a 4 cm incision on the plantar aspect of the foot. Considerable yellow purulent material and foul odor was experienced while incising the wound and draining. This was cultured for aerobic and anaerobic culture. Utilizing 3 liters of dilute gentamicin solution with a low pressure pulse lavage system, the wound was thoroughly irrigated dorsally and plantarly. All necrotic tissue as seen was debrided. The capsule was not violated dorsally or plantarly on the 4th metatarsal or 5th metatarsal phalangeal joint. The bone was palpated and felt to be firm. Therefore, the capsule was not entered. The wound was then packed with half-inch Iodoform gauze dorsally and plantarly, and a dry sterile dressing was applied. The patient having apparently tolerated the surgical procedure was taken from the operative suite to the recovery room for further monitoring by the anesthesia and nursing department. The patient will continue on Zosyn and vancomycin until the cultures become available. The patient was advised that he may require additional surgery and possibly delayed primary closure. ELYSE
== END 2019-10-05 11:12 | disposition home or self-care (01) | DRG 344 ==
LOC: M ED 10:08 → M ED INP 13:17 → ENRESERV 16:13 → M MSPAV 18:24
PROVIDERS: ADMIT Internal Medicine; ATTEND Internal Medicine
PROC: 0JBR0ZZ Excision of Left Foot Subcutaneous Tissue and Fascia, Open Approach (ICD-10-PCS; principal; 2019-09-27 16:00)
DX: E11.621 Type 2 diabetes mellitus with foot ulcer (principal); E11.43 Type 2 diabetes mellitus with diabetic autonomic (poly)neuropathy; M86.172 Other acute osteomyelitis, left ankle and foot; E11.51 Type 2 diabetes mellitus with diabetic peripheral angiopathy without gangrene; L03.116 Cellulitis of left lower limb; K21.9 Gastro-esophageal reflux disease without esophagitis; Z79.899 Other long term (current) drug therapy; Z79.4 Long term (current) use of insulin; Z91.19 Patient's noncompliance with other medical treatment and regimen; I10 Essential (primary) hypertension; L97.529 Non-pressure chronic ulcer of other part of left foot with unspecified severity; B95.61 Methicillin susceptible Staphylococcus aureus infection as the cause of diseases classified elsewhere; B95.5 Unspecified streptococcus as the cause of diseases classified elsewhere

== ENCOUNTER → 2019-10-21 | Outpatient (REF) | payer OTHER, BC ==
[~2019-10-21] MED LIST: ACET1TAB55 PO; AUGM875T28 PO; GABA-1171 PO; LANTINJ4 SC; METO5TAB2 PO; PANT40TA29 PO; RA M10TA PO; RISATAB3 PO; SENN-52 PO; SILV50CR TOP; TRAM50TA2 PO
[2019-11-17 05:04] LABS: BASO % 0.5 % (0.0-1.0); EOS # 0.2 10^3/uL (0.0-0.5); EOS % 1.9 % (0.0-3.0); ERYTHROCYTE SEDIMENTATION RATE 46 mm/hr (0-15); HEMATOCRIT 43.3 % (42.0-52.0); HEMOGLOBIN 14.4 g/dl (13.5-17.5); LYMPH # 2.3 10^3/uL (1.5-5.0); LYMPH % 26.9 % (24.0-44.0); MEAN CORPUSCULAR HEMOGLOBIN 28.9 pg (27.0-33.0); MEAN CORPUSCULAR HGB CONC 33.3 g/dl (32.0-36.5); MEAN CORPUSCULAR VOLUME 86.9 fl (80.0-96.0); MONO # 0.8 10^3/uL (0.0-0.8); MONO % 9.9 % (0.0-5.0); NEUTROPHILS # 5.2 10^3/uL (1.5-8.5); NEUTROPHILS % 60.4 % (36.0-66.0); PLATELET COUNT, AUTOMATED 258 10^3/uL (150-450); RED BLOOD COUNT 4.98 10^6/uL (4.30-6.10); WHITE BLOOD COUNT 8.5 10^3/uL (4.0-10.0)
[2019-11-30 21:17] LABS: C REACTIVE PROTEIN QUANTITATIV 5.37 MG/DL (0.00-0.30); THYROID STIMULATING HORMONE 2.51 uIU/ML (0.358-3.740)
== END ==
LOC: M SFHCPLAZ 10:00
PROVIDERS: ATTEND Internal Medicine Infectious Disease
DX: E11.69 Type 2 diabetes mellitus with other specified complication (principal); M86.9 Osteomyelitis, unspecified; L02.619 Cutaneous abscess of unspecified foot; E11.40 Type 2 diabetes mellitus with diabetic neuropathy, unspecified

== ENCOUNTER → 2019-11-04 | Outpatient (REF) | payer OTHER, BC ==
[2019-12-21 23:07] LABS: BASO % 0.6 % (0.0-1.0); EOS # 0.1 10^3/uL (0.0-0.5); HEMATOCRIT 37.8 % (42.0-52.0); HEMOGLOBIN 12.7 g/dl (13.5-17.5); LYMPH # 1.8 10^3/uL (1.5-5.0); LYMPH % 27.6 % (24.0-44.0); MEAN CORPUSCULAR HEMOGLOBIN 28.6 pg (27.0-33.0); MEAN CORPUSCULAR HGB CONC 33.6 g/dl (32.0-36.5); MEAN CORPUSCULAR VOLUME 85.1 fl (80.0-96.0); MONO # 0.6 10^3/uL (0.0-0.8); MONO % 8.7 % (0.0-5.0); NEUTROPHILS # 3.9 10^3/uL (1.5-8.5); NEUTROPHILS % 60.6 % (36.0-66.0); PLATELET COUNT, AUTOMATED 272 10^3/uL (150-450); RED BLOOD COUNT 4.44 10^6/uL (4.30-6.10); WHITE BLOOD COUNT 6.5 10^3/uL (4.0-10.0)
[2019-12-21 23:19] LABS: ERYTHROCYTE SEDIMENTATION RATE 63 mm/hr (0-15)
[2019-12-31 00:43] LABS: BLOOD UREA NITROGEN 19 MG/DL (7-18); CALCIUM LEVEL 8.9 MG/DL (8.5-10.1); CARBON DIOXIDE LEVEL 30 MEQ/L (21-32); CHLORIDE LEVEL 104 MEQ/L (98-107); GLOMERULAR FILTRATION RATE > 60.0 (>60); GLUCOSE, FASTING 174 MG/DL (70-100); POTASSIUM SERUM 4.3 MEQ/L (3.5-5.1); SODIUM LEVEL 138 MEQ/L (136-145)
== END ==
LOC: M SFHCPLAZ 15:45
PROVIDERS: ATTEND Internal Medicine Infectious Disease
DX: M86.072 Acute hematogenous osteomyelitis, left ankle and foot (principal); L03.116 Cellulitis of left lower limb; E11.40 Type 2 diabetes mellitus with diabetic neuropathy, unspecified

== ENCOUNTER → 2019-12-02 | Outpatient (CLI) | payer OTHER, BC ==
[2019-12-02 11:41] LABS: BASO % 0.5 % (0.0-1.0); EOS # 0.2 10^3/uL (0.0-0.5); EOS % 2.4 % (0.0-3.0); HEMATOCRIT 43.8 % (42.0-52.0); HEMOGLOBIN 14.9 g/dl (13.5-17.5); LYMPH # 1.7 10^3/uL (1.5-5.0); LYMPH % 26.7 % (24.0-44.0); MEAN CORPUSCULAR HEMOGLOBIN 28.1 pg (27.0-33.0); MEAN CORPUSCULAR VOLUME 82.6 fl (80.0-96.0); MONO # 0.6 10^3/uL (0.0-0.8); MONO % 9.4 % (0.0-5.0); NEUTROPHILS # 3.8 10^3/uL (1.5-8.5); NEUTROPHILS % 60.8 % (36.0-66.0); PLATELET COUNT, AUTOMATED 216 10^3/uL (150-450); WHITE BLOOD COUNT 6.3 10^3/uL (4.0-10.0)
[2019-12-02 12:10] LABS: ERYTHROCYTE SEDIMENTATION RATE 11 mm/hr (0-15)
[2019-12-02 12:25] LABS: BLOOD UREA NITROGEN 18 MG/DL (7-18); CALCIUM LEVEL 9.1 MG/DL (8.5-10.1); CARBON DIOXIDE LEVEL 26 MEQ/L (21-32); CHLORIDE LEVEL 106 MEQ/L (98-107); CREATININE FOR GFR 0.88 MG/DL (0.70-1.30); FREE T4 0.97 NG/DL (0.76-1.46); GLOMERULAR FILTRATION RATE > 60.0 (>60); GLUCOSE, FASTING 232 MG/DL (70-100); POTASSIUM SERUM 4.1 MEQ/L (3.5-5.1); SODIUM LEVEL 139 MEQ/L (136-145)
== END ==
LOC: M PLALAB 08:49
PROVIDERS: ATTEND Internal Medicine Infectious Disease
DX: E03.9 Hypothyroidism, unspecified (principal); M86.172 Other acute osteomyelitis, left ankle and foot

== ENCOUNTER → 2019-12-23 | Outpatient (REF) | payer OTHER, BC ==
[2019-12-23 13:57] LABS: ALBUMIN 3.6 GM/DL (3.2-5.2); ALT/SGPT 24 U/L (12-78); BILIRUBIN,TOTAL 1.2 MG/DL (0.2-1.0); BLOOD UREA NITROGEN 15 MG/DL (7-18); CALCIUM LEVEL 9.3 MG/DL (8.5-10.1); CARBON DIOXIDE LEVEL 30 MEQ/L (21-32); CHLORIDE LEVEL 101 MEQ/L (98-107); CHOLESTEROL LEVEL 235 MG/DL (<200); CHOLESTEROL RISK RATIO 6.527 (<5); CREATININE FOR GFR 0.84 MG/DL (0.70-1.30); GLOMERULAR FILTRATION RATE > 60.0 (>60); GLUCOSE, FASTING 281 MG/DL (70-100); HDL CHOLESTEROL 36 MG/DL (>40); HEMOGLOBIN A1c 7.4 %; NON-HDL-C 199 MG/DL; POTASSIUM SERUM 4.4 MEQ/L (3.5-5.1); SODIUM LEVEL 134 MEQ/L (136-145); TOTAL PROTEIN 7.9 GM/DL (6.4-8.2); TRIGLYCERIDES LEVEL 494 MG/DL (<150)
== END ==
LOC: M LAB REF 12:18
PROVIDERS: ATTEND Family Medicine Addiction Medicine
DX: E11.9 Type 2 diabetes mellitus without complications (principal)

== ENCOUNTER 2021-05-29 19:04 | Emergency (ER) | payer OTHER ==
[~2021-05-29] VITALS: Ht 185.4 cm; Wt 123.6 kg
[2021-05-29 19:04] VITALS: BP 173/97
[~2021-05-29 19:04] MED LIST changes: +ALCOPAD25 TOP; +BASA100I SC; +CEPH500C PO; +FIFT31MI2 SC; +GLUC1TES2 XX; +GLUCMIS7 XX; +LANCMIS33 TOP; +LEVE1INJ5 SC; +METF-838 PO; +MIRA1POW3 PO
[2021-05-29] MEDS ORDERED: OMEP40CA4 PO (19:11)
[2021-05-29] MEDS ORDERED: TRAZ-252 (19:13)
[2021-05-29] MEDS ORDERED: TRUL10IN (19:13)
[2021-05-29] MEDS ORDERED: GABA600T4 (19:13)
[2021-05-29] MEDS ORDERED: BUPR300T92 (19:13)
== END 2021-05-29 19:30 | disposition left against medical advice (07) ==
LOC: M ED 19:04
DX: Z53.21 Procedure and treatment not carried out due to patient leaving prior to being seen by health care provider (principal)

== ENCOUNTER 2021-05-30 07:45 | Day surgery (SDC) | payer OTHER ==
[~2021-05-30] VITALS: Ht 185.4 cm; Wt 120.0 kg
[~2021-05-30 07:45] MED LIST changes: +BUPR300T92; +GABA600T4; +LIDOCAINE 2% 100MG/5ML SDV (FOR ANES.) As Ordered ONE; +MIDAZOLAM INJ 2MG/2ML VIAL (J2250 PER 1MG) As Ordered ONE; +OMEP40CA4 PO; +ROCURONIUM BROMIDE 50 MG/5 ML VIAL As Ordered ONE; +TRAZ-252; +TRUL10IN; +fentaNYL 100 MCG/2 ML INJECTION As Ordered ONE; +propofoL 200 MG/20 ML VIAL As Ordered ONE
[2021-05-30] MEDS ORDERED: LIDOCAINE 2% W/ EPINEPHRINE 1.7 ML DENTAL INJ As Ordered ONE ×2 (09:04→10:29)
[2021-05-30] MEDS ORDERED: CHLORHEXIDINE GLUCONATE 0.12 % 15ML UDC (PERIDEX ORAL RINSE) As Ordered ONE (09:06)
[2021-05-30] MEDS ORDERED: UNASYN 3 GM VIAL As Ordered ONE (09:24)
[2021-05-30] MEDS ORDERED: dexameTHASONE 4 MG/ML 1ML VIAL (J1100 PER 1MG) As Ordered ONE (09:54)
[2021-05-30] MEDS ORDERED: SUGAMMADEX SODIUM 500 MG/5 ML VIAL (BRIDION) As Ordered ONE (09:54)
[2021-05-30] MEDS ORDERED: ACETAMINOPHEN 1000MG 100ML IV BTL (OFIRMEV) (J0131 PER 10MG) As Ordered ONE (09:54)
[2021-05-30] MEDS ORDERED: ONDANSETRON 4MG/2ML VIAL As Ordered ONE (09:54)
[2021-05-30] MEDS ORDERED: PHENYLephrine 500MCG 5ML (100MCG/ML) SYRINGE As Ordered ONE (10:18)
[2021-05-30] MEDS ORDERED: LR 1,000 ML IV SCH (10:50)
[2021-05-30] MEDS ORDERED: fentaNYL 100 MCG/2 ML INJECTION IV PRN (10:50)
[2021-05-30] MEDS ORDERED: oxyCODONE 5MG TAB PO PRN (10:50)
[2021-05-30] MEDS ORDERED: ONDANSETRON 4MG/2ML VIAL IV PRN (10:50)
[2021-05-30 11:25] VITALS: BP 146/89
== END 2021-05-30 11:30 | disposition home or self-care (01) ==
LOC: M SDC 07:45
PROVIDERS: ATTEND Dentist
DX: L02.01 Cutaneous abscess of face (principal); K02.9 Dental caries, unspecified; E11.9 Type 2 diabetes mellitus without complications; Z79.84 Long term (current) use of oral hypoglycemic drugs; E66.9 Obesity, unspecified; Z79.899 Other long term (current) drug therapy
CPT/HCPCS: 10060; 87426; 88300; D7210; D9223; J0131; J1100; J2250; J2370; J2405; J3010

== ENCOUNTER → 2021-09-09 | Outpatient (CLI) | payer OTHER ==
[~2021-09-09] MED LIST changes: -LIDOCAINE 2% 100MG/5ML SDV (FOR ANES.) As Ordered ONE; -MIDAZOLAM INJ 2MG/2ML VIAL (J2250 PER 1MG) As Ordered ONE; -ROCURONIUM BROMIDE 50 MG/5 ML VIAL As Ordered ONE; -fentaNYL 100 MCG/2 ML INJECTION As Ordered ONE; -propofoL 200 MG/20 ML VIAL As Ordered ONE
== END ==
LOC: M RAD 09-08 16:25
PROVIDERS: ATTEND Physician Assistant
DX: K09.8 Other cysts of oral region, not elsewhere classified (principal)

== ENCOUNTER → 2021-09-30 | Outpatient (CLI) | payer OTHER ==
[~2021-09-30] MED LIST changes: +EFFE150C2 PO; -GABA600T4; +GABA600T4 PO; +METF10004 PO; +PROAAER10 INH; -TRAZ-252; +TRAZ-252 PO
== END ==
LOC: M LABSMTC 11:25
PROVIDERS: ATTEND Anesthesiology
DX: Z01.812 Encounter for preprocedural laboratory examination (principal); Z11.52 Encounter for screening for COVID-19

== ENCOUNTER 2021-10-05 08:41 | Day surgery (SDC) | payer OTHER ==
[~2021-10-05] VITALS: Ht 185.4 cm; Wt 117.8 kg
[~2021-10-05 08:41] MED LIST changes: +NS 1,000 ML IV ONE
[2021-10-05] MEDS ORDERED: propofoL 500 MG/50 ML VIAL As Ordered ONE (09:36)
[2021-10-05] MEDS ORDERED: fentaNYL 100 MCG/2 ML INJECTION As Ordered ONE (09:38)
[2021-10-05] MEDS ORDERED: LIDOCAINE 2% 100MG/5ML SDV (FOR ANES.) As Ordered ONE (09:40)
[2021-10-05 10:52] VITALS: BP 124/84
[2021-10-05] MEDS ORDERED: ONDANSETRON 4MG 2ML VIAL As Ordered ONE (11:30)
== END 2021-10-05 11:00 | disposition home or self-care (01) ==
LOC: M OPP 08:41
PROVIDERS: ATTEND Internal Medicine Gastroenterology
DX: Z12.11 Encounter for screening for malignant neoplasm of colon (principal); R12 Heartburn; K21.9 Gastro-esophageal reflux disease without esophagitis; K63.5 Polyp of colon; K20.90 Esophagitis, unspecified without bleeding; K22.719 Barrett's esophagus with dysplasia, unspecified; K64.1 Second degree hemorrhoids; K57.30 Diverticulosis of large intestine without perforation or abscess without bleeding; E11.40 Type 2 diabetes mellitus with diabetic neuropathy, unspecified; M19.90 Unspecified osteoarthritis, unspecified site; J45.909 Unspecified asthma, uncomplicated; Z86.14 Personal history of Methicillin resistant Staphylococcus aureus infection; Z91.013 Allergy to seafood; Z79.84 Long term (current) use of oral hypoglycemic drugs; Z79.899 Other long term (current) drug therapy
CPT/HCPCS: 43239; 45380; 88305; J2405; J3010

== ENCOUNTER → 2021-12-12 | Outpatient (CLI) | payer OTHER ==
[~2021-12-12] MED LIST changes: -NS 1,000 ML IV ONE
== END ==
LOC: M LABSMTC 11:26
PROVIDERS: ATTEND Anesthesiology
DX: Z20.828 Contact with and (suspected) exposure to other viral communicable diseases (principal); Z11.59 Encounter for screening for other viral diseases

== ENCOUNTER 2021-12-17 09:19 | Day surgery (SDC) | payer OTHER ==
[~2021-12-17] VITALS: Ht 185.4 cm; Wt 117.9 kg
[~2021-12-17 09:19] MED LIST changes: +CelecoXIB 400 MG CAP PO ONE; +LR 1,000 ML IV SCH; +ceFAZolin SOD 2 GM in IV 1 EA IV ONE
[2021-12-17] MEDS ORDERED: LIDOCAINE 2% 100MG/5ML SDV (FOR ANES.) As Ordered ONE (10:35)
[2021-12-17] MEDS ORDERED: propofoL 200 MG/20 ML VIAL As Ordered ONE (10:35)
[2021-12-17] MEDS ORDERED: KETOROLAC 60MG 2ML VIAL As Ordered ONE (10:35)
[2021-12-17] MEDS ORDERED: ONDANSETRON 4MG 2ML VIAL As Ordered ONE (10:35)
[2021-12-17] MEDS ORDERED: MIDAZOLAM INJ 2MG/2ML VIAL (J2250 PER 1MG) As Ordered ONE ×2 (10:36→11:52)
[2021-12-17] MEDS ORDERED: fentaNYL 100 MCG/2 ML INJECTION As Ordered ONE (10:36)
[2021-12-17] MEDS ORDERED: LIDOCAINE W/EPINEPHRINE 1% 20ML VIAL As Ordered ONE (11:15)
[2021-12-17] MEDS ORDERED: LIDOCAINE 1% SDV 30ML VIAL As Ordered ONE (11:15)
[2021-12-17] MEDS ORDERED: KETAMINE HCL 200 MG/20 ML VIAL As Ordered ONE (11:52)
[2021-12-17] MEDS ORDERED: BUPIVACAINE HCL 0.25% 30ML VIAL As Ordered ONE (11:54)
[2021-12-17] MEDS ORDERED: ACETAMINOPHEN 1000MG 100ML IV BTL (OFIRMEV) (J0131 PER 10MG) As Ordered ONE (12:24)
[2021-12-17] MEDS ORDERED: OXYC1TAB23 PO (12:39)
[2021-12-17 13:16] VITALS: BP 122/78
== END 2021-12-17 13:20 | disposition home or self-care (01) ==
LOC: M SDC 09:19
PROVIDERS: ATTEND Surgery
DX: L90.5 Scar conditions and fibrosis of skin (principal); L72.0 Epidermal cyst; E11.40 Type 2 diabetes mellitus with diabetic neuropathy, unspecified; F41.9 Anxiety disorder, unspecified; F12.10 Cannabis abuse, uncomplicated; J45.909 Unspecified asthma, uncomplicated; Z79.51 Long term (current) use of inhaled steroids; Z79.899 Other long term (current) drug therapy; Z91.013 Allergy to seafood
CPT/HCPCS: 11426; 88307; J0131; J0690; J2250; J2405; J3010

== ENCOUNTER → 2022-07-26 | Outpatient (CLI) | payer OTHER ==
[~2022-07-26] MED LIST changes: -CelecoXIB 400 MG CAP PO ONE; +INSU100I6 SC; -LEVE1INJ5 SC; -LR 1,000 ML IV SCH; +OXYC1TAB23 PO; -ceFAZolin SOD 2 GM in IV 1 EA IV ONE
== END ==
LOC: M RAD 09:18
PROVIDERS: ATTEND Internal Medicine Gastroenterology
DX: R10.10 Upper abdominal pain, unspecified (principal)

== ENCOUNTER 2022-10-24 11:49 | Inpatient (IN) | payer OTHER ==
[~2022-10-24] VITALS: Ht 185.4 cm; Wt 148.3 kg
[2022-10-24] MEDS: VANCOMYCIN HCL 750 MG, VIAL MATE ADAPTER 1 EACH in D5W 250 ML IV SCH (04:00)
[~2022-10-24 11:49] MED LIST changes: +CLIC31MI6 SC; -FIFT31MI2 SC
[2022-10-24] MEDS ORDERED: VANCOMYCIN HCL 2,000 MG in D5W 500 ML IV ONE (17:10)
[2022-10-24] MEDS ORDERED: VANCOMYCIN HCL 1,000 MG, VIAL MATE ADAPTER 1 EACH in D5W 250 ML IV ONE ×2 (18:00→19:00)
[2022-10-24 19:14] LABS: BASO % 0.6 % (0.0-1.0); EOS # 0.1 10^3/uL (0.0-0.5); EOS % 1.8 % (0.0-3.0); HEMATOCRIT 46.8 % (42.0-52.0); HEMOGLOBIN 16.6 g/dl (13.5-17.5); LYMPH # 2.4 10^3/uL (1.5-5.0); LYMPH % 33.3 % (24.0-44.0); MEAN CORPUSCULAR HEMOGLOBIN 30.3 pg (27.0-33.0); MEAN CORPUSCULAR HGB CONC 35.5 g/dl (32.0-36.5); MEAN CORPUSCULAR VOLUME 85.6 fl (80.0-96.0); MONO # 0.5 10^3/uL (0.0-0.8); NEUTROPHILS # 4.1 10^3/uL (1.5-8.5); NEUTROPHILS % 56.7 % (36.0-66.0); PLATELET COUNT, AUTOMATED 235 10^3/uL (150-450); RED BLOOD COUNT 5.47 10^6/uL (4.30-6.10); WHITE BLOOD COUNT 7.1 10^3/uL (4.0-10.0)
[2022-10-24 19:25] LABS: ERYTHROCYTE SEDIMENTATION RATE 20 mm/hr (0-15)
[2022-10-24 19:40] LABS: C REACTIVE PROTEIN QUANTITATIV < 0.40 MG/DL (<1.0)
[2022-10-24 19:42] LABS: BLOOD UREA NITROGEN 17 MG/DL (9-23); CALCIUM LEVEL 9.7 MG/DL (8.5-10.1); CARBON DIOXIDE LEVEL 30 MMOL/L (20-31); CHLORIDE LEVEL 101 MMOL/L (98-107); CREATININE FOR GFR 0.75 MG/DL (0.70-1.30); GLOMERULAR FILTRATION RATE > 60.0 (>60); GLUCOSE, FASTING 200 MG/DL (60-100); POTASSIUM SERUM 3.8 MMOL/L (3.5-5.1); SODIUM LEVEL 137 MMOL/L (136-145)
[2022-10-24] MEDS ORDERED: NS 1,000 ML IV SCH (20:40)
[2022-10-24] MEDS ORDERED: GLUCOSE 4GM CHEW TABLET PO PRN (20:40)
[2022-10-24] MEDS ORDERED: ALBUTEROL SULFATE 2.5MG/0.5ML INH NEB SOLN NEB PRN (20:40)
[2022-10-24] MEDS ORDERED: VANCOMYCIN HCL IV SCH (20:40)
[2022-10-24] MEDS ORDERED: MATE ADAPTER IV SCH (20:40)
[2022-10-24] MEDS ORDERED: GLUCAGON INJ 1MG VIAL SC PRN (20:40)
[2022-10-24] MEDS ORDERED: NS IV SCH (20:40)
[2022-10-24] MEDS ORDERED: DEXTROSE 50% 50ML SYRINGE IV PRN (20:40)
[2022-10-24] MEDS ORDERED: INSULIN LISPRO (NovoLOG) PER UNIT SC SCH (21:00)
[2022-10-24] MEDS ORDERED: HOME MED LIST COMPLETE! XX SCH (23:50)
[2022-10-24] MEDS ORDERED: OMEP-173 PO (23:50)
[2022-10-24] MEDS ORDERED: METF-839 PO (23:50)
[2022-10-24] MEDS ORDERED: ALBU8.5H INH (23:50)
[2022-10-25 01:22] LABS: RSV AMPLIFICATION NEGATIVE (NEGATIVE)
[2022-10-25] MEDS: IPRATROPIUM 0.5MG/ALBUTEROL 2.5MG INH SOL UD 3ML (DUONEB) NEB SCH ×2 (01:47→07:25)
[2022-10-25] MEDS: VANCOMYCIN HCL 750 MG, VIAL MATE ADAPTER 1 EACH in D5W 250 ML IV SCH ×2 (02:19→04:14)
[2022-10-25] MEDS: VANCOMYCIN HCL 1,000 MG, VIAL MATE ADAPTER 1 EACH in D5W 250 ML IV SCH ×2 (03:11→14:46)
[2022-10-25 06:11] LABS: ALBUMIN 3.1 G/DL (3.2-5.2); ALKALINE PHOSPHATASE 73 U/L (46-116); ALT/SGPT 17 U/L (7.0-40); AST/SGOT < 8 U/L (<34); BILIRUBIN,TOTAL 1.5 MG/DL (0.3-1.2); BLOOD UREA NITROGEN 17 MG/DL (9-23); CALCIUM LEVEL 8.5 MG/DL (8.5-10.1); CARBON DIOXIDE LEVEL 24 MMOL/L (20-31); CHLORIDE LEVEL 105 MMOL/L (98-107); CREATININE FOR GFR 0.68 MG/DL (0.70-1.30); GLOMERULAR FILTRATION RATE > 60.0 (>60); GLUCOSE, FASTING 316 MG/DL (60-100); POTASSIUM SERUM 3.8 MMOL/L (3.5-5.1); SODIUM LEVEL 138 MMOL/L (136-145); TOTAL PROTEIN 6.1 G/DL (5.7-8.2)
[2022-10-25] MEDS: INSULIN LISPRO (NovoLOG) PER UNIT SC SCH ×3 (07:30→18:00)
[2022-10-25 07:42] LABS: INR 0.89; PROTHROMBIN TIME 12.2 SECONDS (12.5-14.5)
[2022-10-25 07:43] LABS: PARTIAL THROMBOPLASTIN TIME 28.4 SECONDS (24.8-34.2)
[2022-10-25] MEDS ORDERED: LEVEMIR (INSULIN DETEMIR) 1 UNITS/0.01ML SC SCH (09:00)
[2022-10-25] MEDS ORDERED: ALBUTEROL 90 MCG/ACT 8GM HFA INHALER INH PRN (09:10)
[2022-10-25] MEDS ORDERED: VANCOMYCIN HCL 500 MG in D5W MINI-BAG PLUS 100 ML IV ONE (16:00)
[2022-10-25] MEDS ORDERED: fentaNYL 100 MCG/2 ML INJECTION As Ordered ONE (17:40)
[2022-10-25] MEDS ORDERED: propofoL 500 MG/50 ML VIAL As Ordered ONE (17:40)
[2022-10-25] MEDS ORDERED: MIDAZOLAM INJ 2MG/2ML VIAL As Ordered ONE (17:40)
[2022-10-25] MEDS ORDERED: LIDOCAINE 2% 100MG/5ML SDV (FOR ANES.) As Ordered ONE (17:43)
[2022-10-25] MEDS ORDERED: ONDANSETRON 4MG 2ML VIAL As Ordered ONE (17:45)
[2022-10-25] MEDS ORDERED: LIDOCAINE 2% MDV 20ML VIAL As Ordered ONE (17:57)
[2022-10-25] MEDS ORDERED: GENTAMICIN SULF 80MG/2ML VIAL As Ordered ONE (18:27)
[2022-10-25] MEDS ORDERED: propofoL 200 MG/20 ML VIAL As Ordered ONE (18:27)
[2022-10-25] MEDS ORDERED: KETOROLAC 60MG 2ML VIAL As Ordered ONE (18:45)
[2022-10-25 19:35] VITALS: BP 142/86; TEMP 97.7; O2SAT 96
[2022-10-25 20:00] VITALS: BP 143/85; TEMP 97.3; O2SAT 95
[2022-10-25 20:30] VITALS: BP 141/84; TEMP 97.5; O2SAT 98
[2022-10-25 21:30] VITALS: BP 138/84; TEMP 97.5; O2SAT 96
[2022-10-25 22:30] VITALS: BP 140/84; TEMP 97.9; O2SAT 88; O2SAT 94
[2022-10-25 23:30] VITALS: BP 139/85; TEMP 97.9; O2SAT 95
[2022-10-26] MEDS: VANCOMYCIN HCL 750 MG, VIAL MATE ADAPTER 1 EACH in D5W 250 ML IV SCH ×3 (00:10→15:04)
[2022-10-26 00:30] VITALS: BP 137/84; TEMP 97.9; O2SAT 92
[2022-10-26] MEDS: VANCOMYCIN HCL 500 MG in D5W MINI-BAG PLUS 100 ML IV SCH ×3 (00:38→16:29)
[2022-10-26] MEDS: INSULIN LISPRO (NovoLOG) PER UNIT SC SCH ×6 (00:39→20:51)
[2022-10-26 04:30] VITALS: BP 136/87; TEMP 97.5; O2SAT 95
[2022-10-26 08:06] LABS: MEAN CORPUSCULAR HEMOGLOBIN 30.1 pg (27.0-33.0); MEAN CORPUSCULAR HGB CONC 34.9 g/dl (32.0-36.5); MEAN CORPUSCULAR VOLUME 86.3 fl (80.0-96.0); PLATELET COUNT, AUTOMATED 188 10^3/uL (150-450); RED BLOOD COUNT 4.98 10^6/uL (4.30-6.10); WHITE BLOOD COUNT 5.8 10^3/uL (4.0-10.0)
[2022-10-26 08:31] LABS: VANCOMYCIN LEVEL TROUGH 12.1 UG/ML (10.0-20.0)
[2022-10-26 08:36] LABS: ALBUMIN 3.3 G/DL (3.2-5.2); ALKALINE PHOSPHATASE 78 U/L (46-116); ALT/SGPT 18 U/L (7.0-40); AST/SGOT 8 U/L (<34); BILIRUBIN,TOTAL 1.4 MG/DL (0.3-1.2); BLOOD UREA NITROGEN 12 MG/DL (9-23); CALCIUM LEVEL 8.8 MG/DL (8.5-10.1); CARBON DIOXIDE LEVEL 28 MMOL/L (20-31); CHLORIDE LEVEL 104 MMOL/L (98-107); CREATININE FOR GFR 0.84 MG/DL (0.70-1.30); GLOMERULAR FILTRATION RATE > 60.0 (>60); GLUCOSE, FASTING 208 MG/DL (60-100); POTASSIUM SERUM 3.9 MMOL/L (3.5-5.1); SODIUM LEVEL 139 MMOL/L (136-145); TOTAL PROTEIN 6.8 G/DL (5.7-8.2)
[2022-10-26] MEDS ORDERED: LEVEMIR (INSULIN DETEMIR) 1 UNITS/0.01ML SC SCH ×2 (09:00→21:00)
[2022-10-26 10:00] VITALS: BP 139/87; TEMP 97.7; O2SAT 95
[2022-10-26 14:00] VITALS: BP 136/90; TEMP 97.5; O2SAT 95
[2022-10-26] MEDS: ACETAMINOPHEN TAB 650MG DOSE (2X325MG) PO PRN (17:58)
[2022-10-26 21:40] VITALS: BP 145/96; TEMP 98; O2SAT 96
[2022-10-27] MEDS: VANCOMYCIN HCL 750 MG, VIAL MATE ADAPTER 1 EACH in D5W 250 ML IV SCH ×3 (00:14→15:55)
[2022-10-27] MEDS: VANCOMYCIN HCL 500 MG in D5W MINI-BAG PLUS 100 ML IV SCH ×3 (00:14→17:40)
[2022-10-27 05:43] VITALS: BP 161/94; TEMP 98.1; O2SAT 96
[2022-10-27 06:53] LABS: HEMATOCRIT 41.2 % (42.0-52.0); HEMOGLOBIN 14.6 g/dl (13.5-17.5); MEAN CORPUSCULAR HEMOGLOBIN 30.2 pg (27.0-33.0); MEAN CORPUSCULAR HGB CONC 35.4 g/dl (32.0-36.5); MEAN CORPUSCULAR VOLUME 85.3 fl (80.0-96.0); PLATELET COUNT, AUTOMATED 177 10^3/uL (150-450); RED BLOOD COUNT 4.83 10^6/uL (4.30-6.10); WHITE BLOOD COUNT 6.1 10^3/uL (4.0-10.0)
[2022-10-27 07:17] LABS: ALBUMIN 3.3 G/DL (3.2-5.2); ALKALINE PHOSPHATASE 72 U/L (46-116); ALT/SGPT 16 U/L (7.0-40); AST/SGOT 9 U/L (<34); BILIRUBIN,TOTAL 1.4 MG/DL (0.3-1.2); BLOOD UREA NITROGEN 10 MG/DL (9-23); CALCIUM LEVEL 9.1 MG/DL (8.5-10.1); CARBON DIOXIDE LEVEL 25 MMOL/L (20-31); CHLORIDE LEVEL 105 MMOL/L (98-107); CREATININE FOR GFR 0.69 MG/DL (0.70-1.30); GLOMERULAR FILTRATION RATE > 60.0 (>60); GLUCOSE, FASTING 223 MG/DL (60-100); POTASSIUM SERUM 3.9 MMOL/L (3.5-5.1); SODIUM LEVEL 138 MMOL/L (136-145); TOTAL PROTEIN 6.4 G/DL (5.7-8.2)
[2022-10-27] MEDS: ACETAMINOPHEN TAB 650MG DOSE (2X325MG) PO PRN (08:07)
[2022-10-27] MEDS: INSULIN LISPRO (NovoLOG) PER UNIT SC SCH ×4 (08:08→20:46)
[2022-10-27] MEDS: ENOXAPARIN 40MG/0.4ML SYRINGE (J1650 PER 10MG) SC SCH (09:00)
[2022-10-27] MEDS ORDERED: LEVEMIR (INSULIN DETEMIR) 1 UNITS/0.01ML SC SCH (09:00)
[2022-10-27] MEDS ORDERED: PERCOCET 5MG/325MG TAB PO ONE (13:00)
[2022-10-27 14:00] VITALS: BP 161/93; TEMP 97.9; O2SAT 94
[2022-10-27] MEDS ORDERED: traMADol 50 MG TAB PO PRN (14:25)
[2022-10-27] MEDS: PERCOCET 5MG/325MG TAB PO PRN (19:04)
[2022-10-27 20:00] VITALS: BP 157/88; TEMP 97.7; O2SAT 98
[2022-10-27] MEDS: LEVEMIR (INSULIN DETEMIR) 1 UNITS/0.01ML SC SCH (20:46)
[2022-10-28] MEDS: VANCOMYCIN HCL 750 MG, VIAL MATE ADAPTER 1 EACH in D5W 250 ML IV SCH ×3 (00:18→16:21)
[2022-10-28] MEDS: VANCOMYCIN HCL 500 MG in D5W MINI-BAG PLUS 100 ML IV SCH ×3 (00:19→16:21)
[2022-10-28] MEDS: PERCOCET 5MG/325MG TAB PO PRN ×5 (00:26→21:47)
[2022-10-28 05:57] VITALS: BP 126/71; TEMP 97.9; O2SAT 96
[2022-10-28 06:54] LABS: HEMATOCRIT 41.4 % (42.0-52.0); HEMOGLOBIN 14.4 g/dl (13.5-17.5); MEAN CORPUSCULAR HEMOGLOBIN 30.1 pg (27.0-33.0); MEAN CORPUSCULAR HGB CONC 34.8 g/dl (32.0-36.5); MEAN CORPUSCULAR VOLUME 86.4 fl (80.0-96.0); PLATELET COUNT, AUTOMATED 174 10^3/uL (150-450); RED BLOOD COUNT 4.79 10^6/uL (4.30-6.10)
[2022-10-28 07:18] LABS: ALBUMIN 3.3 G/DL (3.2-5.2); ALKALINE PHOSPHATASE 69 U/L (46-116); ALT/SGPT 18 U/L (7.0-40); AST/SGOT < 8 U/L (<34); BILIRUBIN,TOTAL 1.4 MG/DL (0.3-1.2); BLOOD UREA NITROGEN 14 MG/DL (9-23); CALCIUM LEVEL 8.8 MG/DL (8.5-10.1); CARBON DIOXIDE LEVEL 25 MMOL/L (20-31); CHLORIDE LEVEL 106 MMOL/L (98-107); CREATININE FOR GFR 0.67 MG/DL (0.70-1.30); GLOMERULAR FILTRATION RATE > 60.0 (>60); GLUCOSE, FASTING 256 MG/DL (60-100); POTASSIUM SERUM 3.9 MMOL/L (3.5-5.1); SODIUM LEVEL 138 MMOL/L (136-145); TOTAL PROTEIN 6.5 G/DL (5.7-8.2)
[2022-10-28] MEDS: LEVEMIR (INSULIN DETEMIR) 1 UNITS/0.01ML SC SCH ×2 (08:42→21:44)
[2022-10-28] MEDS: ENOXAPARIN 40MG/0.4ML SYRINGE (J1650 PER 10MG) SC SCH (08:43)
[2022-10-28] MEDS: INSULIN LISPRO (NovoLOG) PER UNIT SC SCH ×4 (08:48→21:45)
[2022-10-28 15:15] VITALS: BP 126/78; TEMP 97.9; O2SAT 97
[2022-10-28 21:32] VITALS: BP 133/81; TEMP 97.7; O2SAT 96
[2022-10-29] MEDS: VANCOMYCIN HCL 750 MG, VIAL MATE ADAPTER 1 EACH in D5W 250 ML IV SCH (00:26)
[2022-10-29] MEDS: VANCOMYCIN HCL 500 MG in D5W MINI-BAG PLUS 100 ML IV SCH (00:26)
[2022-10-29] MEDS: PERCOCET 5MG/325MG TAB PO PRN ×2 (03:33→08:27)
[2022-10-29 06:36] LABS: HEMATOCRIT 42.2 % (42.0-52.0); HEMOGLOBIN 14.8 g/dl (13.5-17.5); MEAN CORPUSCULAR HEMOGLOBIN 30.3 pg (27.0-33.0); MEAN CORPUSCULAR HGB CONC 35.1 g/dl (32.0-36.5); MEAN CORPUSCULAR VOLUME 86.3 fl (80.0-96.0); PLATELET COUNT, AUTOMATED 158 10^3/uL (150-450); RED BLOOD COUNT 4.89 10^6/uL (4.30-6.10); WHITE BLOOD COUNT 5.7 10^3/uL (4.0-10.0)
[2022-10-29 06:44] VITALS: BP 135/80; TEMP 97.9; O2SAT 98
[2022-10-29 06:54] LABS: ALBUMIN 3.3 G/DL (3.2-5.2); ALKALINE PHOSPHATASE 69 U/L (46-116); ALT/SGPT 20 U/L (7.0-40); AST/SGOT 9 U/L (<34); BILIRUBIN,TOTAL 1.2 MG/DL (0.3-1.2); BLOOD UREA NITROGEN 14 MG/DL (9-23); CALCIUM LEVEL 8.6 MG/DL (8.5-10.1); CARBON DIOXIDE LEVEL 25 MMOL/L (20-31); CHLORIDE LEVEL 107 MMOL/L (98-107); CREATININE FOR GFR 0.71 MG/DL (0.70-1.30); GLOMERULAR FILTRATION RATE > 60.0 (>60); GLUCOSE, FASTING 203 MG/DL (60-100); SODIUM LEVEL 141 MMOL/L (136-145); TOTAL PROTEIN 6.4 G/DL (5.7-8.2)
[2022-10-29] MEDS ORDERED: PROB250C PO (08:04)
[2022-10-29] MEDS ORDERED: PERCOCET PO (08:04)
[2022-10-29] MEDS ORDERED: ZYVO1TAB PO (08:04)
[2022-10-29] MEDS: INSULIN LISPRO (NovoLOG) PER UNIT SC SCH (08:25)
[2022-10-29] MEDS: LEVEMIR (INSULIN DETEMIR) 1 UNITS/0.01ML SC SCH (08:25)
[2022-10-29] MEDS: ENOXAPARIN 40MG/0.4ML SYRINGE (J1650 PER 10MG) SC SCH (08:26)
== END 2022-10-29 10:20 | disposition home or self-care (01) | DRG 314 ==
LOC: M ED 11:49 → M ED INP 20:38 → ENRESERV 10-25 17:43 → M MS5PR 10-25 19:50
PROVIDERS: ADMIT Internal Medicine; ATTEND Internal Medicine
PROC: 0Y6W0Z0 Detachment at Left 4th Toe, Complete, Open Approach (ICD-10-PCS; principal; 2022-10-25 16:30)
DX: E11.621 Type 2 diabetes mellitus with foot ulcer (principal); M86.8X7 Other osteomyelitis, ankle and foot; L97.528 Non-pressure chronic ulcer of other part of left foot with other specified severity; J45.909 Unspecified asthma, uncomplicated; F12.10 Cannabis abuse, uncomplicated; Z79.84 Long term (current) use of oral hypoglycemic drugs; Z79.899 Other long term (current) drug therapy; Z91.013 Allergy to seafood; Z20.822 Contact with and (suspected) exposure to COVID-19; E11.69 Type 2 diabetes mellitus with other specified complication

== ENCOUNTER → 2022-11-01 | Outpatient (REF) | payer OTHER ==
[~2022-11-01] MED LIST changes: +ALBU8.5H INH; +METF-839 PO; +OMEP-173 PO; +PERCOCET PO; +PROB250C PO; +ZYVO1TAB PO
[2022-11-01 17:32] LABS: CHOLESTEROL LEVEL 219 MG/DL (<200); CHOLESTEROL RISK RATIO 4.44 (<5); HDL CHOLESTEROL 49.3 MG/DL (>40); LDL CHOLESTEROL 124.5 MG/DL (<100); NON-HDL-C 169.7 MG/DL; TRIGLYCERIDES LEVEL 226 MG/DL (<150)
[2022-11-01 17:46] LABS: HEMOGLOBIN A1c 8.4 % (4.0-6.0)
== END ==
LOC: M LAB REF 16:33
PROVIDERS: ATTEND Nurse Practitioner Family
DX: R61 Generalized hyperhidrosis (principal); E11.40 Type 2 diabetes mellitus with diabetic neuropathy, unspecified; E11.621 Type 2 diabetes mellitus with foot ulcer; E11.610 Type 2 diabetes mellitus with diabetic neuropathic arthropathy; Z12.5 Encounter for screening for malignant neoplasm of prostate; Z11.9 Encounter for screening for infectious and parasitic diseases, unspecified; E66.3 Overweight

== ENCOUNTER → 2022-11-07 | Outpatient (REF) | payer OTHER | LOC: M LAB REF 16:35 | PROVIDERS: ATTEND Nurse Practitioner Family | DX: R10.9 Unspecified abdominal pain (principal) ==

== ENCOUNTER → 2022-11-09 | Outpatient (CLI) | payer OTHER | LOC: M WUC 09:28 | PROVIDERS: ATTEND Nurse Practitioner Family | DX: M54.2 Cervicalgia (principal); M25.511 Pain in right shoulder ==

== ENCOUNTER → 2023-02-07 | Outpatient (CLI) | payer OTHER | LOC: M RAD 08:09 | PROVIDERS: ATTEND Internal Medicine Gastroenterology | DX: R10.10 Upper abdominal pain, unspecified (principal) | CPT/HCPCS: 78227; A9537 ==

== ENCOUNTER → 2023-02-24 | Outpatient (REF) | payer OTHER ==
[~2023-02-24] MED LIST changes: -EFFE150C2 PO; +EFFE150C3 PO
[2023-02-25 16:12] LABS: TESTOSTERONE FREE (DIRECT) 12.4 pg/mL (6.8-21.5)
== END ==
LOC: M LAB REF 12:29
PROVIDERS: ATTEND Nurse Practitioner Family
DX: F52.21 Male erectile disorder (principal)

== ENCOUNTER 2023-05-29 08:58 | Emergency (ER) | payer OTHER ==
[~2023-05-29] VITALS: Ht 185.4 cm; Wt 124.2 kg
[~2023-05-29 08:58] MED LIST changes: -MIRA1POW3 PO; +MIRA33506 PO
[2023-05-29] MEDS ORDERED: SILD100T PO (09:09)
[2023-05-29] MEDS ORDERED: DEXC1MIS3 (09:09)
[2023-05-29] MEDS ORDERED: FOLI1TAB11 PO (09:09)
[2023-05-29] MEDS ORDERED: LOSA25TA13 PO (09:09)
[2023-05-29] MEDS ORDERED: B-1100TA2 PO (09:09)
[2023-05-29] MEDS ORDERED: TRUL0.5I SC (09:09)
[2023-05-29] MEDS ORDERED: GLIP5TAB20 PO (09:09)
[2023-05-29] MEDS ORDERED: ATOR1TAB19 (09:09)
[2023-05-29 09:42] LABS: BASO % 0.4 % (0.0-1.0); EOS # 0.1 10^3/uL (0.0-0.5); EOS % 1.6 % (0.0-3.0); HEMATOCRIT 41.8 % (42.0-52.0); HEMOGLOBIN 14.6 g/dl (13.5-17.5); LYMPH # 1.5 10^3/uL (1.5-5.0); LYMPH % 21.7 % (24.0-44.0); MEAN CORPUSCULAR HEMOGLOBIN 30.2 pg (27.0-33.0); MEAN CORPUSCULAR HGB CONC 34.9 g/dl (32.0-36.5); MEAN CORPUSCULAR VOLUME 86.4 fl (80.0-96.0); MONO # 0.6 10^3/uL (0.0-0.8); MONO % 8.4 % (2.0-8.0); NEUTROPHILS # 4.7 10^3/uL (1.5-8.5); NEUTROPHILS % 67.6 % (36.0-66.0); PLATELET COUNT, AUTOMATED 199 10^3/uL (150-450); RED BLOOD COUNT 4.84 10^6/uL (4.30-6.10); WHITE BLOOD COUNT 6.9 10^3/uL (4.0-10.0)
[2023-05-29 10:18] LABS: RSV AMPLIFICATION NEGATIVE (NEGATIVE)
[2023-05-29 10:20] LABS: CPK CREATINE PHOSPHOKINASE 74 U/L (46-171)
[2023-05-29 10:21] LABS: BLOOD UREA NITROGEN 15 MG/DL (9-23); CALCIUM LEVEL 8.7 MG/DL (8.5-10.1); CARBON DIOXIDE LEVEL 27 MMOL/L (20-31); CHLORIDE LEVEL 104 MMOL/L (98-107); CK-MB VALUE MASS 1.6 NG/ML (<3.6); CREATININE FOR GFR 0.77 MG/DL (0.70-1.30); GLOMERULAR FILTRATION RATE > 60.0 (>60); GLUCOSE, FASTING 301 MG/DL (60-100); MB/CK RELATIVE INDEX 2.16 (< OR =4); POTASSIUM SERUM 4.1 MMOL/L (3.5-5.1); SODIUM LEVEL 137 MMOL/L (136-145)
[2023-05-29 11:48] LABS: ERYTHROCYTE SEDIMENTATION RATE 33 mm/hr (0-15)
[2023-05-29] MEDS ORDERED: HYDR-643 PO (12:11)
[2023-05-29] MEDS ORDERED: HOME MED LIST COMPLETE! XX SCH (12:15)
[2023-05-29] MEDS ORDERED: CEPH500C PO (12:37)
[2023-05-29] MEDS ORDERED: DOXY-443 PO (12:37)
[2023-05-29] MEDS: CEPHALEXIN 500 MG CAP PO ONE (12:46)
[2023-05-29] MEDS: DOXYCYCLINE HYCLATE 100MG TABLET PO ONE (12:46)
[2023-05-29 13:35] VITALS: BP 156/84; TEMP 96.8; O2SAT 98
== END 2023-05-29 13:36 | disposition home or self-care (01) ==
LOC: M ED 08:58
DX: R07.9 Chest pain, unspecified (principal); E11.621 Type 2 diabetes mellitus with foot ulcer; I10 Essential (primary) hypertension; F41.9 Anxiety disorder, unspecified; F32.A Depression, unspecified; F10.10 Alcohol abuse, uncomplicated; Z91.013 Allergy to seafood; Z79.52 Long term (current) use of systemic steroids; Z79.83 Long term (current) use of bisphosphonates; Z79.899 Other long term (current) drug therapy

== ENCOUNTER → 2023-06-01 | Outpatient (REF) | payer OTHER ==
[~2023-06-01] MED LIST changes: +ATOR1TAB19; +B-1100TA2 PO; +DEXC1MIS3; +DOXY-443 PO; +FOLI1TAB11 PO; +GLIP5TAB20 PO; +HYDR-643 PO; +LOSA25TA13 PO; +SILD100T PO; +TRUL0.5I SC
[2023-06-01 18:15] LABS: HEMOGLOBIN A1c 6.6 % (4.0-6.0)
== END ==
LOC: M LAB REF 16:27
PROVIDERS: ATTEND Nurse Practitioner Family
DX: E11.40 Type 2 diabetes mellitus with diabetic neuropathy, unspecified (principal); E11.610 Type 2 diabetes mellitus with diabetic neuropathic arthropathy; E11.621 Type 2 diabetes mellitus with foot ulcer; K52.9 Noninfective gastroenteritis and colitis, unspecified

== ENCOUNTER → 2023-06-19 | Outpatient (REF) | payer OTHER | LOC: M LAB REF 11:02 | PROVIDERS: ATTEND Nurse Practitioner Family | DX: R19.7 Diarrhea, unspecified (principal) ==

== ENCOUNTER → 2023-07-07 | Outpatient (REF) | payer OTHER ==
[~2023-07-07] MED LIST changes: -CLIC31MI6 SC; +PEN-371 SC
[2023-07-07 13:37] LABS: CREATININE, URINE 90.2 MG/DL
[2023-07-07 13:38] LABS: MAU/CREAT RATIO 52.1 MCG/MG (0.0-30.0)
== END ==
LOC: M LAB REF 11:27
PROVIDERS: ATTEND Nurse Practitioner Family
DX: E11.40 Type 2 diabetes mellitus with diabetic neuropathy, unspecified (principal); E11.610 Type 2 diabetes mellitus with diabetic neuropathic arthropathy

== ENCOUNTER 2023-07-19 16:34 | Inpatient (IN) | payer OTHER ==
[~2023-07-19] VITALS: Ht 185.4 cm; Wt 130.0 kg
[~2023-07-19 16:34] MED LIST changes: +BUPR-597; -BUPR300T92; +DOXY-323 PO; -DOXY-443 PO
[2023-07-19 18:02] LABS: BASO % 0.2 % (0.0-1.0); EOS % 0.1 % (0.0-3.0); HEMATOCRIT 41.4 % (42.0-52.0); HEMOGLOBIN 14.4 g/dl (13.5-17.5); LYMPH # 1.6 10^3/uL (1.5-5.0); LYMPH % 9.3 % (24.0-44.0); MEAN CORPUSCULAR HEMOGLOBIN 30.5 pg (27.0-33.0); MEAN CORPUSCULAR HGB CONC 34.8 g/dl (32.0-36.5); MEAN CORPUSCULAR VOLUME 87.7 fl (80.0-96.0); MONO # 1.1 10^3/uL (0.0-0.8); MONO % 6.7 % (2.0-8.0); NEUTROPHILS # 13.9 10^3/uL (1.5-8.5); NEUTROPHILS % 83.3 % (36.0-66.0); PLATELET COUNT, AUTOMATED 208 10^3/uL (150-450); RED BLOOD COUNT 4.72 10^6/uL (4.30-6.10); WHITE BLOOD COUNT 16.7 10^3/uL (4.0-10.0)
[2023-07-19 18:23] LABS: ALBUMIN 3.3 G/DL (3.2-5.2); ALKALINE PHOSPHATASE 99 U/L (46-116); ALT/SGPT 15 U/L (7.0-40); AST/SGOT 8 U/L (<34); BILIRUBIN,DIRECT 0.9 MG/DL (<0.4); BILIRUBIN,TOTAL 2.9 MG/DL (0.3-1.2); BLOOD UREA NITROGEN 15 MG/DL (9-23); CARBON DIOXIDE LEVEL 28 MMOL/L (20-31); CHLORIDE LEVEL 100 MMOL/L (98-107); CREATININE FOR GFR 1.07 MG/DL (0.70-1.30); GLOMERULAR FILTRATION RATE > 60.0 (>60); GLUCOSE, FASTING 174 MG/DL (60-100); POTASSIUM SERUM 3.8 MMOL/L (3.5-5.1); SODIUM LEVEL 137 MMOL/L (136-145); TOTAL PROTEIN 7.7 G/DL (5.7-8.2)
[2023-07-19 18:29] LABS: ERYTHROCYTE SEDIMENTATION RATE 69 mm/hr (0-15); PROCALCITONIN 0.13 ng/ml
[2023-07-19] MEDS: KETOROLAC 30 MG/ML 1ML VIAL IV ONE (18:36)
[2023-07-19] MEDS: NS 1,000 ML IV ONE ×2 (18:36→19:47)
[2023-07-19] MEDS ORDERED: VANCOMYCIN HCL 2,000 MG in IV FLUID PLACE HOLDER 1 EA IV ONE (19:10)
[2023-07-19] MEDS: PIPERACILLIN/TAZOBACTAM SOD 3.375 GM in D5W MINI-BAG PLUS 50 ML IV ONE (19:39)
[2023-07-19] MEDS ORDERED: ATOR1TAB19 PO (19:54)
[2023-07-19] MEDS ORDERED: [UNRECOGNIZED DRUG - CODE] PO (19:54)
[2023-07-19] MEDS ORDERED: PREG75CA3 PO (19:54)
[2023-07-19] MEDS ORDERED: AZEL1SPR3 NARES (19:54)
[2023-07-19] MEDS ORDERED: HOME MED LIST COMPLETE! XX SCH (19:55)
[2023-07-19] MEDS: MORPHINE 4 MG/ML 1ML VIAL IV ONE (20:48)
[2023-07-19] MEDS: VANCOMYCIN HCL 1,000 MG, VIAL MATE ADAPTER 1 EACH in D5W 250 ML IV ONE ×2 (21:00→22:19)
[2023-07-19] MEDS: ACETAMINOPHEN 500 MG TAB PO ONE (21:59)
[2023-07-19 22:43] VITALS: BP 163/102; TEMP 98.2; O2SAT 98
[2023-07-19 23:00] VITALS: BP 141/80
[2023-07-19] MEDS ORDERED: PERCOCET 5MG/325MG TAB PO PRN (23:00)
[2023-07-19] MEDS ORDERED: ALBUTEROL 90 MCG/ACT 8GM HFA INHALER INH PRN (23:25)
[2023-07-19] MEDS ORDERED: DEXTROSE 50% 50ML SYRINGE IV PRN (23:50)
[2023-07-19] MEDS ORDERED: GLUCOSE 4 GM CHEW PO PRN (23:50)
[2023-07-19] MEDS ORDERED: GLUCAGON INJ 1MG VIAL SC PRN (23:50)
[2023-07-20] MEDS ORDERED: HYDROMORPHONE HCL 0.5 MG/ 0.5 ML SYRINGE IV PRN
[2023-07-20] MEDS: PREGABALIN 75 MG CAP(LYRICA) PO SCH (00:18)
[2023-07-20] MEDS: ONDANSETRON 4MG TAB PO ONE (00:18)
[2023-07-20] MEDS: PERCOCET 5MG/325MG TAB PO PRN (00:18)
[2023-07-20] MEDS: traZODone 50 MG TAB PO SCH (00:18)
[2023-07-20] MEDS: OMEPRAZOLE 20MG CAP PO SCH (00:19)
[2023-07-20] MEDS: PIPERACILLIN/TAZOBACTAM SOD 3.375 GM in D5W MINI-BAG PLUS 50 ML IV SCH (03:14)
[2023-07-20] MEDS: HYDROMORPHONE HCL 0.5 MG/ 0.5 ML SYRINGE IV PRN (03:14)
[2023-07-20 04:00] VITALS: BP 142/80; TEMP 98.2; O2SAT 95
[2023-07-20] MEDS: VANCOMYCIN HCL 1,000 MG, VIAL MATE ADAPTER 1 EACH in D5W 250 ML IV SCH ×2 (06:24→14:22)
[2023-07-20 07:25] LABS: BASO % 0.2 % (0.0-1.0); EOS # 0.1 10^3/uL (0.0-0.5); EOS % 0.4 % (0.0-3.0); HEMATOCRIT 36.5 % (42.0-52.0); HEMOGLOBIN 12.8 g/dl (13.5-17.5); LYMPH # 1.5 10^3/uL (1.5-5.0); LYMPH % 10.7 % (24.0-44.0); MEAN CORPUSCULAR HEMOGLOBIN 30.4 pg (27.0-33.0); MEAN CORPUSCULAR HGB CONC 35.1 g/dl (32.0-36.5); MEAN CORPUSCULAR VOLUME 86.7 fl (80.0-96.0); MONO # 1.3 10^3/uL (0.0-0.8); MONO % 9.8 % (2.0-8.0); NEUTROPHILS # 10.7 10^3/uL (1.5-8.5); NEUTROPHILS % 78.5 % (36.0-66.0); PLATELET COUNT, AUTOMATED 186 10^3/uL (150-450); RED BLOOD COUNT 4.21 10^6/uL (4.30-6.10); WHITE BLOOD COUNT 13.6 10^3/uL (4.0-10.0)
[2023-07-20] MEDS ORDERED: INSULIN LISPRO (NovoLOG) PER UNIT SC SCH ×2 (07:30→21:00)
[2023-07-20 07:47] LABS: BLOOD UREA NITROGEN 15 MG/DL (9-23); CALCIUM LEVEL 8.3 MG/DL (8.5-10.1); CARBON DIOXIDE LEVEL 25 MMOL/L (20-31); CHLORIDE LEVEL 102 MMOL/L (98-107); CREATININE FOR GFR 0.88 MG/DL (0.70-1.30); GLOMERULAR FILTRATION RATE > 60.0 (>60); GLUCOSE, FASTING 202 MG/DL (60-100); SODIUM LEVEL 135 MMOL/L (136-145)
[2023-07-20] MEDS: LOSARTAN 25 MG TAB PO SCH (08:42)
[2023-07-20] MEDS: ATORVASTATIN 10 MG TAB PO SCH (08:43)
[2023-07-20] MEDS: PANTOPRAZOLE 40MG VIAL IV SCH (09:12)
[2023-07-20] MEDS: ONDANSETRON 4MG 2ML VIAL IV PRN (09:12)
[2023-07-20] MEDS: INSULIN LISPRO (NovoLOG) PER UNIT SC SCH ×2 (09:12→21:00)
[2023-07-20 09:19] LABS: HEMOGLOBIN A1c 6.6 % (4.0-6.0)
[2023-07-20] MEDS ORDERED: PROHANCE 279.3MG/ML 5ML VIAL As Ordered ONE (10:42)
[2023-07-20] MEDS ORDERED: PROHANCE 279.3MG/ML 15ML VIAL As Ordered ONE (10:43)
[2023-07-20] MEDS: SUCRALFATE SUSP 1GM/10ML UD PO SCH (12:42)
[2023-07-20 13:36] VITALS: BP 148/75; TEMP 98.1; O2SAT 97
[2023-07-20] MEDS ORDERED: VANCOMYCIN HCL 1,000 MG, VIAL MATE ADAPTER 1 EACH in D5W 250 ML IV SCH (14:00)
[2023-07-20] MEDS ORDERED: MIDAZOLAM INJ 2MG/2ML VIAL As Ordered ONE (17:51)
[2023-07-20] MEDS ORDERED: propofoL 200 MG/20 ML VIAL As Ordered ONE (17:51)
[2023-07-20] MEDS ORDERED: fentaNYL 100 MCG/2 ML INJECTION As Ordered ONE (17:51)
[2023-07-20] MEDS ORDERED: LIDOCAINE 2% 100MG/5ML SDV (FOR ANES.) As Ordered ONE (17:51)
[2023-07-20] MEDS: GENTAMICIN SULF 80MG/2ML VIAL As Ordered ONE (19:18)
[2023-07-20] MEDS: LIDOCAINE 2% MDV 20ML VIAL As Ordered ONE (20:00)
[2023-07-20] MEDS ORDERED: METOCLOPRAMIDE INJ 10MG/2ML VIAL As Ordered ONE (20:04)
[2023-07-20] MEDS: ZOSYN 3.375GM VIAL As Ordered ONE (20:30)
[2023-07-20 21:50] VITALS: BP 147/77; TEMP 98.1; O2SAT 96
[2023-07-20] MEDS ORDERED: GLUCOSE 4 GM CHEW PO PRN (22:15)
[2023-07-20] MEDS ORDERED: GLUCAGON INJ 1MG VIAL SC PRN (22:15)
[2023-07-20] MEDS ORDERED: DEXTROSE 50% 50ML SYRINGE IV PRN (22:15)
[2023-07-20 22:20] VITALS: BP 146/79; TEMP 98.2; O2SAT 100
[2023-07-20] MEDS ORDERED: zolPIDEM TARTRATE 5 MG TAB PO PRN (22:40)
[2023-07-20 22:50] VITALS: BP 131/76; TEMP 98.4; O2SAT 98
[2023-07-20] MEDS ORDERED: PILL CUTTER 1 EACH XX PRN (22:50)
[2023-07-20] MEDS: traZODone 100 MG TAB PO SCH (23:23)
[2023-07-20 23:50] VITALS: BP 150/96; TEMP 98.2; O2SAT 95
[2023-07-21] VITALS (7 sets, daily range): BP systolic 139–150; BP diastolic 87–94; TEMP 97.9–98.4; O2SAT 94–100
[2023-07-21 07:15] LABS: BASO % 0.3 % (0.0-1.0); EOS # 0.1 10^3/uL (0.0-0.5); EOS % 0.9 % (0.0-3.0); HEMATOCRIT 37.2 % (42.0-52.0); HEMOGLOBIN 12.6 g/dl (13.5-17.5); LYMPH # 1.1 10^3/uL (1.5-5.0); LYMPH % 10.9 % (24.0-44.0); MEAN CORPUSCULAR HEMOGLOBIN 29.6 pg (27.0-33.0); MEAN CORPUSCULAR HGB CONC 33.9 g/dl (32.0-36.5); MEAN CORPUSCULAR VOLUME 87.5 fl (80.0-96.0); MONO # 0.9 10^3/uL (0.0-0.8); MONO % 9.2 % (2.0-8.0); NEUTROPHILS # 7.9 10^3/uL (1.5-8.5); NEUTROPHILS % 78.4 % (36.0-66.0); PLATELET COUNT, AUTOMATED 189 10^3/uL (150-450); RED BLOOD COUNT 4.25 10^6/uL (4.30-6.10); WHITE BLOOD COUNT 10.1 10^3/uL (4.0-10.0)
[2023-07-21 07:38] LABS: BLOOD UREA NITROGEN 10 MG/DL (9-23); CALCIUM LEVEL 8.7 MG/DL (8.5-10.1); CARBON DIOXIDE LEVEL 26 MMOL/L (20-31); CHLORIDE LEVEL 100 MMOL/L (98-107); CREATININE FOR GFR 0.84 MG/DL (0.70-1.30); GLOMERULAR FILTRATION RATE > 60.0 (>60); GLUCOSE, FASTING 224 MG/DL (60-100); MAGNESIUM LEVEL 1.8 MG/DL (1.8-2.4); POTASSIUM SERUM 3.8 MMOL/L (3.5-5.1); SODIUM LEVEL 135 MMOL/L (136-145)
[2023-07-21] MEDS: HEPARIN SOD (PORCINE) 5000UNITS/ML 1ML VIAL/SYRINGE SQ SCH (09:10)
[2023-07-21] MEDS: INSULIN LISPRO (NovoLOG) PER UNIT SC SCH (09:11)
[2023-07-21] MEDS ORDERED: PERCOCET 5MG/325MG TAB PO PRN (10:00)
[2023-07-21] MEDS ORDERED: ACETAMINOPHEN TAB 650MG DOSE (2X325MG) PO PRN (10:00)
[2023-07-21] MEDS: MUPIROCIN 2% OINT 22 GM TUBE TOP SCH (10:26)
[2023-07-21] MEDS: LACTOBACILLUS ACIDOPHILUS CAP (BACID) PO SCH (18:23)
[2023-07-21] MEDS: PERCOCET 5MG/325MG TAB PO PRN (21:40)
[2023-07-22 06:00] VITALS: BP 152/96; TEMP 98.2; O2SAT 96
[2023-07-22] MEDS: metroNIDAZOLE (FLAGYL) 500MG TABLET PO SCH (08:19)
[2023-07-22 08:26] LABS: BASO # 0.1 10^3/uL (0.0-0.2); BASO % 0.7 % (0.0-1.0); EOS # 0.2 10^3/uL (0.0-0.5); EOS % 3.4 % (0.0-3.0); HEMATOCRIT 35.7 % (42.0-52.0); HEMOGLOBIN 12.3 g/dl (13.5-17.5); LYMPH # 1.4 10^3/uL (1.5-5.0); MEAN CORPUSCULAR HEMOGLOBIN 29.9 pg (27.0-33.0); MEAN CORPUSCULAR HGB CONC 34.5 g/dl (32.0-36.5); MEAN CORPUSCULAR VOLUME 86.7 fl (80.0-96.0); MONO # 0.7 10^3/uL (0.0-0.8); MONO % 10.5 % (2.0-8.0); NEUTROPHILS # 4.5 10^3/uL (1.5-8.5); NEUTROPHILS % 65.1 % (36.0-66.0); PLATELET COUNT, AUTOMATED 205 10^3/uL (150-450); RED BLOOD COUNT 4.12 10^6/uL (4.30-6.10); WHITE BLOOD COUNT 6.9 10^3/uL (4.0-10.0)
[2023-07-22 08:50] LABS: BLOOD UREA NITROGEN 9 MG/DL (9-23); CALCIUM LEVEL 8.3 MG/DL (8.5-10.1); CARBON DIOXIDE LEVEL 29 MMOL/L (20-31); CHLORIDE LEVEL 101 MMOL/L (98-107); CREATININE FOR GFR 0.79 MG/DL (0.70-1.30); GLOMERULAR FILTRATION RATE > 60.0 (>60); GLUCOSE, FASTING 202 MG/DL (60-100); MAGNESIUM LEVEL 1.7 MG/DL (1.8-2.4); POTASSIUM SERUM 3.8 MMOL/L (3.5-5.1); SODIUM LEVEL 137 MMOL/L (136-145)
[2023-07-22] MEDS: MAG SULF 1GM/100ML (MAG RUN) 100 ML IV SCH (10:32)
[2023-07-22] MEDS: LINEZOLID 600MG TABLET (ZYVOX) PO ONE (10:33)
[2023-07-22 14:00] VITALS: BP 162/92; TEMP 98.4; O2SAT 96
[2023-07-22 14:16] VITALS: BP 162/92; TEMP 98.4; O2SAT 96
[2023-07-22 20:00] VITALS: BP 159/92; TEMP 98.2; O2SAT 96
[2023-07-22] MEDS: LEVEMIR (INSULIN DETEMIR) 1 UNITS/0.01ML SC SCH (21:23)
[2023-07-23] MEDS: FAMOTIDINE 20 MG TAB PO ONE (04:47)
[2023-07-23] MEDS: KETOROLAC 30 MG/ML 1ML VIAL IV ONE (04:48)
[2023-07-23 06:00] VITALS: BP 137/77; TEMP 98.2; O2SAT 96
[2023-07-23 07:06] LABS: BASO # 0.1 10^3/uL (0.0-0.2); BASO % 0.8 % (0.0-1.0); EOS # 0.2 10^3/uL (0.0-0.5); EOS % 3.6 % (0.0-3.0); HEMATOCRIT 36.6 % (42.0-52.0); HEMOGLOBIN 12.7 g/dl (13.5-17.5); LYMPH # 1.3 10^3/uL (1.5-5.0); LYMPH % 20.5 % (24.0-44.0); MEAN CORPUSCULAR HGB CONC 34.7 g/dl (32.0-36.5); MEAN CORPUSCULAR VOLUME 86.5 fl (80.0-96.0); MONO # 0.6 10^3/uL (0.0-0.8); MONO % 9.2 % (2.0-8.0); NEUTROPHILS # 4.2 10^3/uL (1.5-8.5); NEUTROPHILS % 65.4 % (36.0-66.0); PLATELET COUNT, AUTOMATED 215 10^3/uL (150-450); RED BLOOD COUNT 4.23 10^6/uL (4.30-6.10); WHITE BLOOD COUNT 6.4 10^3/uL (4.0-10.0)
[2023-07-23 07:30] LABS: BLOOD UREA NITROGEN 12 MG/DL (9-23); CALCIUM LEVEL 8.9 MG/DL (8.5-10.1); CARBON DIOXIDE LEVEL 26 MMOL/L (20-31); CHLORIDE LEVEL 103 MMOL/L (98-107); CREATININE FOR GFR 0.85 MG/DL (0.70-1.30); GLOMERULAR FILTRATION RATE > 60.0 (>60); GLUCOSE, FASTING 199 MG/DL (60-100); MAGNESIUM LEVEL 1.8 MG/DL (1.8-2.4); POTASSIUM SERUM 4.1 MMOL/L (3.5-5.1); SODIUM LEVEL 138 MMOL/L (136-145)
[2023-07-23] MEDS: METOCLOPRAMIDE 5 MG TAB PO SCH (08:08)
[2023-07-23] MEDS: CEPHALEXIN 500 MG CAP PO SCH (08:09)
[2023-07-23 09:42] LABS: LIPASE 24 U/L (12-53)
[2023-07-23] MEDS: MAG SULF 1GM/100ML (MAG RUN) 1 GM in IV 1 EA IV ONE (10:06)
[2023-07-23 13:59] VITALS: BP 155/94; TEMP 98.1; O2SAT 98
[2023-07-23 21:27] VITALS: BP 154/94; TEMP 97.7; O2SAT 96
[2023-07-24 04:32] VITALS: BP 152/93; TEMP 97.5; O2SAT 97
[2023-07-24 08:11] LABS: BASO # 0.1 10^3/uL (0.0-0.2); BASO % 0.8 % (0.0-1.0); EOS # 0.2 10^3/uL (0.0-0.5); EOS % 3.7 % (0.0-3.0); HEMATOCRIT 37.3 % (42.0-52.0); HEMOGLOBIN 12.8 g/dl (13.5-17.5); LYMPH # 1.4 10^3/uL (1.5-5.0); LYMPH % 24.2 % (24.0-44.0); MEAN CORPUSCULAR HEMOGLOBIN 29.6 pg (27.0-33.0); MEAN CORPUSCULAR HGB CONC 34.3 g/dl (32.0-36.5); MEAN CORPUSCULAR VOLUME 86.3 fl (80.0-96.0); MONO # 0.7 10^3/uL (0.0-0.8); MONO % 12.2 % (2.0-8.0); NEUTROPHILS # 3.5 10^3/uL (1.5-8.5); NEUTROPHILS % 58.6 % (36.0-66.0); PLATELET COUNT, AUTOMATED 230 10^3/uL (150-450); RED BLOOD COUNT 4.32 10^6/uL (4.30-6.10); WHITE BLOOD COUNT 5.9 10^3/uL (4.0-10.0)
[2023-07-24 08:33] LABS: BLOOD UREA NITROGEN 12 MG/DL (9-23); CALCIUM LEVEL 8.6 MG/DL (8.5-10.1); CARBON DIOXIDE LEVEL 28 MMOL/L (20-31); CHLORIDE LEVEL 105 MMOL/L (98-107); CREATININE FOR GFR 0.79 MG/DL (0.70-1.30); GLOMERULAR FILTRATION RATE > 60.0 (>60); GLUCOSE, FASTING 198 MG/DL (60-100); MAGNESIUM LEVEL 1.6 MG/DL (1.8-2.4); POTASSIUM SERUM 3.9 MMOL/L (3.5-5.1); SODIUM LEVEL 140 MMOL/L (136-145)
[2023-07-24 09:09] VITALS: BP 140/75
[2023-07-24] MEDS: MAG SULF 1GM/100ML (MAG RUN) 1 GM in IV 1 EA IV SCH (09:12)
[2023-07-24] MEDS ORDERED: MUPI2OI NARES (10:07)
[2023-07-24] MEDS ORDERED: CEPH500C PO (10:07)
[2023-07-24] MEDS ORDERED: RISATAB3 PO (10:07)
[2023-07-24] MEDS ORDERED: METR-265 PO (10:07)
[2023-07-24] MEDS ORDERED: PERCOCET PO (10:07)
== END 2023-07-24 11:38 | disposition home health service (06) | DRG 710 ==
LOC: M ED 16:34 → UNDOADMIN 20:51 → M ED INP 20:51 → ENRESERV 21:25 → M ED INP 21:44 → M MSPAV 21:44 → UNDODISIN 22:01 → M MSPAV 22:43
PROVIDERS: ADMIT Preventive Medicine Undersea and Hyperbaric Medicine; ATTEND Internal Medicine
PROC: 0Y9M0ZZ Drainage of Right Foot, Open Approach (ICD-10-PCS; 2023-07-20)
PROC: 0S9M0ZZ Drainage of Right Metatarsal-Phalangeal Joint, Open Approach (ICD-10-PCS; principal; 2023-07-20 17:00)
DX: A41.9 Sepsis, unspecified organism (principal); E11.40 Type 2 diabetes mellitus with diabetic neuropathy, unspecified; E11.621 Type 2 diabetes mellitus with foot ulcer; E11.43 Type 2 diabetes mellitus with diabetic autonomic (poly)neuropathy; E11.65 Type 2 diabetes mellitus with hyperglycemia; L97.519 Non-pressure chronic ulcer of other part of right foot with unspecified severity; E78.00 Pure hypercholesterolemia, unspecified; E78.5 Hyperlipidemia, unspecified; I10 Essential (primary) hypertension; J45.20 Mild intermittent asthma, uncomplicated; K21.9 Gastro-esophageal reflux disease without esophagitis; L02.611 Cutaneous abscess of right foot; M86.8X7 Other osteomyelitis, ankle and foot; B95.1 Streptococcus, group B, as the cause of diseases classified elsewhere; G47.00 Insomnia, unspecified; Z91.013 Allergy to seafood; Z79.899 Other long term (current) drug therapy; Z89.422 Acquired absence of other left toe(s)

== ENCOUNTER → 2023-07-28 | Outpatient (REF) | payer OTHER ==
[~2023-07-28] MED LIST changes: +ATOR1TAB19 PO; +AZEL1SPR3 NARES; +METR-265 PO; +MUPI2OI NARES; +PREG75CA3 PO; +[UNRECOGNIZED DRUG - CODE] PO
[2023-07-28 13:26] LABS: C REACTIVE PROTEIN QUANTITATIV 0.8 MG/DL (<1.0)
[2023-07-28 13:28] LABS: CHOLESTEROL RISK RATIO 3.38 (<5); HDL CHOLESTEROL 25.7 MG/DL (>40); LDL CHOLESTEROL 35.7 MG/DL (<100); NON-HDL-C 61.3 MG/DL
== END ==
LOC: M LAB REF 12:45
PROVIDERS: ATTEND Nurse Practitioner Family
DX: M86.9 Osteomyelitis, unspecified (principal); E11.40 Type 2 diabetes mellitus with diabetic neuropathy, unspecified; E11.610 Type 2 diabetes mellitus with diabetic neuropathic arthropathy

== ENCOUNTER → 2023-08-01 | Outpatient (REF) | payer OTHER | LOC: M LAB REF 16:13 | PROVIDERS: ATTEND Nurse Practitioner Family | DX: J02.9 Acute pharyngitis, unspecified (principal) ==

== ENCOUNTER → 2023-08-03 | Outpatient (REF) | payer OTHER | LOC: M LAB REF 12:10 | PROVIDERS: ATTEND Nurse Practitioner Family | DX: M86.9 Osteomyelitis, unspecified (principal) ==

== ENCOUNTER → 2023-08-09 | Outpatient (REF) | payer OTHER ==
[2023-08-09 18:31] LABS: BLOOD UREA NITROGEN 16 MG/DL (9-23); CALCIUM LEVEL 9.1 MG/DL (8.5-10.1); CARBON DIOXIDE LEVEL 27 MMOL/L (20-31); CHLORIDE LEVEL 106 MMOL/L (98-107); GLOMERULAR FILTRATION RATE > 60.0 (>60); GLUCOSE, FASTING 133 MG/DL (60-100); POTASSIUM SERUM 4.6 MMOL/L (3.5-5.1); SODIUM LEVEL 141 MMOL/L (136-145)
== END ==
LOC: M LAB REF 16:43
PROVIDERS: ATTEND Nurse Practitioner Family
DX: M86.179 Other acute osteomyelitis, unspecified ankle and foot (principal)

== ENCOUNTER → 2023-08-10 | Outpatient (REF) | payer OTHER | LOC: M LAB REF 16:26 | PROVIDERS: ATTEND Podiatrist | DX: L03.125 Acute lymphangitis of right lower limb (principal) ==

== ENCOUNTER → 2023-09-06 | Outpatient (REF) | payer OTHER ==
[2023-09-06 13:25] LABS: ALBUMIN 3.4 G/DL (3.2-5.2); BILIRUBIN,DIRECT 0.4 MG/DL (<0.4); BILIRUBIN,TOTAL 1.6 MG/DL (0.3-1.2); TOTAL PROTEIN 7.7 G/DL (5.7-8.2)
== END ==
LOC: M LAB REF 12:23
PROVIDERS: ATTEND Nurse Practitioner Family
DX: E78.2 Mixed hyperlipidemia (principal)

== ENCOUNTER → 2023-09-15 | Outpatient (REF) | payer OTHER ==
[2023-09-15 14:36] LABS: FREE T4 1.01 NG/DL (0.89-1.76); THYROID STIMULATING HORMONE 3.002 uIU/ML (0.55-4.78)
[2023-09-15 14:43] LABS: FOLATE 11.6 NG/ML (>5.4)
== END ==
LOC: M LAB REF 12:37
PROVIDERS: ATTEND Nurse Practitioner Family
DX: G47.00 Insomnia, unspecified (principal); E11.40 Type 2 diabetes mellitus with diabetic neuropathy, unspecified; K52.9 Noninfective gastroenteritis and colitis, unspecified

== ENCOUNTER → 2023-10-25 | Outpatient (CLI) | payer OTHER | LOC: M RAD 10:31 | PROVIDERS: ATTEND Nurse Practitioner Family | DX: R60.0 Localized edema (principal) ==

== ENCOUNTER 2023-11-13 08:07 | Outpatient (RCR) | payer OTHER ==
[~2023-11-13 08:07] MED LIST changes: +GABA-1490 PO; -GABA600T4 PO
== END 2023-11-18 ==
LOC: M PT 08:07
PROVIDERS: ATTEND Nurse Practitioner Family
DX: I89.0 Lymphedema, not elsewhere classified (principal)

== ENCOUNTER 2023-11-27 10:27 | Outpatient (RCR) | payer OTHER ==
[~2023-11-27 10:27] MED LIST changes: -DOXY-323 PO; +DOXY-441 PO
== END 2023-12-18 ==
LOC: M PT 10:27
PROVIDERS: ATTEND Nurse Practitioner Family
DX: I89.0 Lymphedema, not elsewhere classified (principal)

== ENCOUNTER → 2023-12-11 | Outpatient (CLI) | payer OTHER ==
[~2023-12-11] MED LIST changes: +DOXY-323 PO; -DOXY-441 PO
== END ==
LOC: M WUC 09:12
PROVIDERS: ATTEND Nurse Practitioner Family
DX: S99.912A Unspecified injury of left ankle, initial encounter (principal); W18.30XA Fall on same level, unspecified, initial encounter; Y92.009 Unspecified place in unspecified non-institutional (private) residence as the place of occurrence of the external cause

== ENCOUNTER → 2023-12-26 | Outpatient (REF) | payer OTHER ==
[~2023-12-26] MED LIST changes: -DOXY-323 PO; +DOXY-441 PO
== END ==
LOC: M LAB REF 16:10
PROVIDERS: ATTEND Nurse Practitioner Family
DX: Z12.5 Encounter for screening for malignant neoplasm of prostate (principal); K12.1 Other forms of stomatitis; J02.9 Acute pharyngitis, unspecified

== ENCOUNTER → 2023-12-26 | Outpatient (REF) | payer OTHER | LOC: M LAB REF 12:10 | PROVIDERS: ATTEND Nurse Practitioner Family | DX: J02.9 Acute pharyngitis, unspecified (principal) ==

== ENCOUNTER → 2024-03-08 | Outpatient (REF) | payer OTHER ==
[2024-03-08 13:36] LABS: CREATININE, URINE 62.4 MG/DL; CREATININE,RANDOM URINE 62.4 MG/DL
== END ==
LOC: M LAB REF 12:02
PROVIDERS: ATTEND Nurse Practitioner Family
DX: E11.40 Type 2 diabetes mellitus with diabetic neuropathy, unspecified (principal); E11.621 Type 2 diabetes mellitus with foot ulcer; E11.610 Type 2 diabetes mellitus with diabetic neuropathic arthropathy

== ENCOUNTER → 2024-03-29 | Outpatient (CLI) | payer OTHER, SELFPAY | LOC: M PLAIMG 08:54 | PROVIDERS: ATTEND Nurse Practitioner Family | DX: Z53.9 Procedure and treatment not carried out, unspecified reason (principal) ==